=== PATIENT | male | born 1950 | race Caucasian/White ===

== ENCOUNTER 2016-11-16 19:38 | Inpatient (IN) ==
[2016-11-16 20:30] LABS: BE 5.8 mmoll (-3.0-3.0); BLOOD TYPE ARTERIAL; DRAW SITE L RADIAL; METHB 1.1 % (0.0-1.5); O2(CT) 19.2 mL/dL (15.0-23.0); PCO2(98.6) 47 mmHg (35-45); PO2(98.6) 114 mmHg (60-100); SAMPLE BLOOD; THB 14.2 g/dL (11.5-17.4); pH(98.6) 7.43 (7.35-7.45)
[2016-11-16 20:32] LABS: ALLEN TEST YES; MODALITY CANNULA
--- NOTE | 2016-11-16 21:11 | EKG Report ---
Test Performed on : 11/16/2016 8:07:42 PM Test Reason : sob Blood Pressure : / mmHG Vent. Rate : 135 BPM Atrial Rate : 090 BPM P-R Int : 000 ms QRS Dur : 096 ms QT Int : 334 ms P-R-T Axes : 000 061 059 degrees QTc Int : 501 ms Undetermined rhythm Low voltage QRS Cannot rule out Anterior infarct , age undetermined Abnormal ECG No previous ECGs available Unconfirmed Result
[2016-11-16 21:29] LABS: MANUAL DIFF NEEDED? NO
[2016-11-16 21:31] LABS: BASO% 0.9 % (0.0-0.8); EOS# 0.08 X1000 (0.0-0.7); EOS% 1.4 % (0.0-10.0); HEMOGLOBIN 14.1 g/dL (14.0-18.0); IMM GRAN# 0.01 X1000 (0.0-0.04); IMM GRAN% 0.2 % (0.0-0.5); LYMPH# 1.54 X1000 (1.2-3.4); LYMPH% 27.4 % (20.5-51.1); MCH 36.9 PG (27-31); MCHC 35.3 g/dL (33-37); MCV 104.7 FL (81-99); MONO# 0.86 X1000 (0.11-0.59); MONO% 15.3 % (1.7-9.3); MPV 10.8 FL (7.4-10.4); NEUT% 54.8 % (42.2-75.2); PLT 102 X1000 (130-400); RBC 3.82 XMIL (4.7-6.1)
[2016-11-16 21:43] LABS: AGAP 13; ALBUMIN 3.8 g/dL (3.5-5.0); ALKALINE PHOSPHATASE 53 U/L (32-122); BUN 13 mg/dL (8-22); CALCIUM 8.5 mg/dL (8.8-10.2); CHLORIDE 93 mmol/L (98-107); CK PROFILE 184 U/L (24-204); COSMO 269; GOT 51 U/L (10-34); GPT 37 U/L (10-44); MAGNESIUM 1.3 mg/dL (1.5-2.7); POTASSIUM 2.8 mmol/L (3.5-5.1); SODIUM 134 mmol/L (136-145); TCO2 28 mmol/L (25-35); TOTAL PROTEIN 6.7 g/dL (6.3-8.3)
[2016-11-16 21:46] LABS: PTT PL 32.8 Seconds (22.6-43.9)
--- NOTE | 2016-11-16 22:11 | Diag Imaging Result Doc PS360 ---
CHEST-2 VIEWS - 11/16/2016 INDICATION: CP TECHNIQUE: COMPARISON: 04/02/2013 FINDINGS: There is moderate infiltrate throughout the left lower lobe and a small left pleural effusion. There is also trace right pleural effusion and slight infiltrate in the right base. Heart size remains borderline. IMPRESSION: Bibasilar infiltrates and pleural effusions consistent with bronchopneumonia. Electronically signed by Franco Bautista 11/16/2016 10:09 PM
[2016-11-16] MEDS ORDERED: CARDIZEM IV ONE (22:58)
[2016-11-16] MEDS ORDERED: VASOTEC IV ONE (22:58)
[2016-11-16] MEDS ORDERED: ASPIRIN PO ONE (22:59)
[2016-11-16] MEDS ORDERED: LASIX IV ONE (22:59)
[2016-11-16] MEDS ORDERED: NS + KCL 40 MEQ 1,000 ML IV SCH (23:02)
[2016-11-16] MEDS ORDERED: KLOR-CON PO ONE (23:06)
[2016-11-16] MEDS ORDERED: ZOFRAN IV PRN (23:14)
[2016-11-16] MEDS ORDERED: CARDIZEM 100 MG/NS 100 MG/100 ML IVPB IV SCH (23:14)
[2016-11-16] MEDS ORDERED: TYLENOL PO PRN (23:14)
--- NOTE | 2016-11-16 23:20 | PROVIDER DOCUMENTATION ---
This chart was entered by Martine Billingsley Scribe, acting as scribe for Pedro Castillo MD. HPI-Respiratory General - General Chief Complaint: Shortness of Breath Stated Complaint: SOB Time Seen by Provider: 11/16/16 22:52 Source: patient Allergies/Adverse Reactions: Patient Allergies Allergy/AdvReac Type Severity Reaction Status Date / Time codeine AdvReac VOMITING Verified 07/24/15 20:15 Home Medications: Home Medication List Medication Instructions Recorded Confirmed Last Taken Type NK [No Home Medications] 11/16/16 11/16/16 Unknown History - History of Present Illness-Resp Nature of Presenting Problem: 66 year old M presents to the ED with a cc of shortness of breath. PT states that this has been going on x1 month. Pt states that it is usually in the mornings and when he gets up and moves around the shortness of breath improves. PT states that tonight while at supper he had a coughing spell and states that he could not catch his breath. Quality of Pain: reports: none Severity in ED: reports: mild Onset/Duration: reports: this evening Timing: reports: improving Exposure: reports: unknown cause Review of Systems - Adult - REVIEW OF SYSTEMS - ADULT Constitutional: reports: fatique, weight gain Eyes: reports: no symptoms reported Ears, Nose, Mouth & Throat: reports: no symptoms reported Cardiovascular: reports: edema, palpitations Respiratory: reports: cough, dyspnea on exertion, shortness of breath Gastrointestinal: reports: no symptoms reported Genitourinary: reports: no symptoms reported Musculoskeletal: reports: no symptoms reported Integumentary: reports: no symptoms reported Neurological: reports: no symptoms reported Psychiatric: reports: no symptoms reported Endocrine: reports: no symptoms reported Hematologic/Lymphatic: reports: no symptoms reported Allergic/Immunologic: reports: no symptoms reported All Other Systems: Reviewed and Negative Past History - Adult - PAST MEDICAL HISTORY-ADULT Review of Records: reports: Nursing Assessment Review, Medications Reviewed Major Childhood Illnesses: reports: denies history Cardiovascular: reports: HTN Respiratory: reports: COPD Gastrointestinal: reports: denies history Genitourinary: reports: denies history Musculoskeletal: reports: denies history Neurological: reports: denies history Psychiatric: reports: denies history Endocrine/Immune: reports: denies history Other Conditions: reports: denies history - PRIOR SURGERIES/PROCEDURES Surgical/Procedure History: reports: hernia repair - PRIOR HOSPITALIZATIONS Prior Hospitalizations: reports: none - IMMUNIZATION STATUS Childhood Immunizations: See Nurse Assessment Flu Vaccine: See Nurse Assessment - FAMILY HISTORY Family History: reviewed, not pertinent - SOCIAL HISTORY Smoking: cigarettes Provider spent 3-5 mins advising pt. on dangers of tobacco.: Discussed manners to quit use, and f/u contacts for add'l counseling. Substance Use: none/never Alcohol Use Frequency: every day Living Situation: family Physical Exam-General - PHYSICAL EXAM-ADULT Initial Vital Signs Reviewed: Yes - CONSTITUTIONAL General Appearance: appears well, alert, no apparent distress - RESPIRATORY Respiratory: rales (bilateral but greater in the right) - CARDIOVASCULAR Cardiovascular: irregularly irregular - GASTROINTESTINAL (ABDOMEN) Abdominal Exam: normal bowel sounds, non tender, soft - MUSCULOSKELETAL Extremity: pedal edema (2-3+ bilateral lower extremity pitting edema) - SKIN Integumentary: normal color, normal turgor, warm/dry - PSYCHIATRIC Psych/Mental Status: normal mood/affect, normal thought content, normal thought process, oriented x 3 Progress - PLAN OF CARE/RESULTS Progress/Plan/Lab Results: Vital Signs - 8 hr 11/16/16 19:44 11/16/16 21:20 Temperature 98.5 F Pulse Rate 133 H 123 H Respiratory Rate 20 20 Blood Pressure 129/70 151/120 O2 Sat by Pulse Oximetry 93 L 98 Laboratory Results - last 24 hr 11/16/16 11/16/16 11/16/16 20:05 20:05 20:05 WBC RBC Hgb Hct MCV MCH MCHC RDW Std Deviation Plt Count MPV Immature Gran % (Auto) Neut % (Auto) Lymph % (Auto) [place] % (Auto) Eos % (Auto) Baso % (Auto) Immature Gran # (Auto) Neut # (Auto) Lymph # (Auto) [place] # (Auto) Eos # (Auto) Baso # (Auto) PT INR APTT (Factor Assay) D-Dimer Specimen Type Sample Site pH pCO2 pO2 HCO3 Base Excess Oxyhemoglobin ABG O2 Sat (Calculated) ABG O2 Saturation ABG Carboxyhemoglobin ABG Methemoglobin Eriberto Test A-a O2 Difference Total Hemoglobin Lactate Blood Gas Modality FiO2 % Sodium 134 L Potassium 2.8 L Chloride 93 L Carbon Dioxide 28 Anion Gap 13 BUN 13 Creatinine 0.6 L Estimated GFR/1.73 m2 > 60 BUN/Creatinine Ratio 22 Glucose 115 H Calculated Osmolality 269 Calcium 8.5 L Magnesium 1.3 L Total Bilirubin 0.80 AST 51 H ALT 37 Alkaline Phosphatase 53 Creatine Kinase 184 Troponin T < 0.010 Syj-N-Fqdkelbnoyu Pept 1708 H Total Protein 6.7 Albumin 3.8 Globulin 3.0 Albumin/Globulin Ratio 1.0 Plasma/Serum Ethyl Alc 11/16/16 11/16/16 11/16/16 20:05 20:05 20:05 WBC 5.63 RBC 3.82 L Hgb 14.1 Hct 40.0 L MCV 104.7 H MCH 36.9 H MCHC 35.3 RDW Std Deviation 12.7 Plt Count 102 L MPV 10.8 H Immature Gran % (Auto) 0.2 Neut % (Auto) 54.8 Lymph % (Auto) 27.4 [place] % (Auto) 15.3 H Eos % (Auto) 1.4 Baso % (Auto) 0.9 H Immature Gran # (Auto) 0.01 Neut # (Auto) 3.09 Lymph # (Auto) 1.54 [place] # (Auto) 0.86 H Eos # (Auto) 0.08 Baso # (Auto) 0.05 PT 14.0 INR 1.00 APTT (Factor Assay) 32.8 D-Dimer 2.32 H Specimen Type Sample Site pH pCO2 pO2 HCO3 Base Excess Oxyhemoglobin ABG O2 Sat (Calculated) ABG O2 Saturation ABG Carboxyhemoglobin ABG Methemoglobin Eriberto Test A-a O2 Difference Total Hemoglobin Lactate Blood Gas Modality FiO2 % Sodium Potassium Chloride Carbon Dioxide Anion Gap BUN Creatinine Estimated GFR/1.73 m2 BUN/Creatinine Ratio Glucose Calculated Osmolality Calcium Magnesium Total Bilirubin AST ALT Alkaline Phosphatase Creatine Kinase Troponin T Cdq-G-Klwqxkgurzl Pept Total Protein Albumin Globulin Albumin/Globulin Ratio Plasma/Serum Ethyl Alc 137 H 11/16/16 20:15 WBC RBC Hgb Hct MCV MCH MCHC RDW Std Deviation Plt Count MPV Immature Gran % (Auto) Neut % (Auto) Lymph % (Auto) [place] % (Auto) Eos % (Auto) Baso % (Auto) Immature Gran # (Auto) Neut # (Auto) Lymph # (Auto) [place] # (Auto) Eos # (Auto) Baso # (Auto) PT INR APTT (Factor Assay) D-Dimer Specimen Type ARTERIAL Sample Site L RADIAL pH 7.43 pCO2 47 H pO2 114 H HCO3 29.4 H Base Excess 5.8 H Oxyhemoglobin 95.5 ABG O2 Sat (Calculated) 19.2 ABG O2 Saturation 99.0 ABG Carboxyhemoglobin 2.40 ABG Methemoglobin 1.1 Eriberto Test YES A-a O2 Difference 84.0 Total Hemoglobin 14.2 Lactate 1.30 Blood Gas Modality CAN[place]ULA FiO2 % 36.0 Sodium Potassium Chloride Carbon Dioxide Anion Gap BUN Creatinine Estimated GFR/1.73 m2 BUN/Creatinine Ratio Glucose Calculated Osmolality Calcium Magnesium Total Bilirubin AST ALT Alkaline Phosphatase Creatine Kinase Troponin T Wbm-D-Ykvjdemighs Pept Total Protein Albumin Globulin Albumin/Globulin Ratio Plasma/Serum Ethyl Alc Orders Category Date Time Status Admit - [facility] Routine AdmDCTranf 11/16/16 23:08 Ordered Activity - Bed Rest with BRP ORDERED Care 11/16/16 23:14 Active Cardiac Monitoring DIRECTED Care 11/16/16 21:19 Active Neurological Check PRN Care 11/16/16 23:14 Active Oxygen Therapy- ED Nursing DIRECTED Care 11/16/16 21:19 Active Saline Loc NOW Care 11/16/16 21:19 Active Vital Signs Order ROUTINE Care 11/16/16 23:14 Active Z-Document. for Tele Applied ORDERED Care 11/16/16 23:09 Active Heart Healthy Diet Diet 11/16/16 23:15 Active CHEST-2 VIEWS [RAD] Stat Exams 11/16/16 21:19 Completed ABG [RESP] Routine Lab 11/16/16 20:15 Completed ALCOHOL BLOOD Stat Lab 11/16/16 20:05 Completed CBC WITH ELECTRONIC DIFF [HEME] Stat Lab 11/16/16 20:05 Completed CK PROFILE [SP CHEM] Stat Lab 11/16/16 20:05 Completed COMPREHENSIVE METABOLIC PANEL [CHEM] Stat Lab 11/16/16 20:[address] D-DIMER [address] [COAG] Stat Lab 11/16/16 20:05 Completed MAGNESIUM [CHEM] Stat Lab 11/16/16 20:05 Completed PRO B-NATRIURETIC PEPTIDE Stat Lab 11/16/16 20:05 Completed PROTIME WITH INR PL [COAG] Stat Lab 11/16/16 20:[address] [COAG] Stat Lab 11/16/16 20:05 Completed TROPONIN T Stat Lab 11/16/16 20:05 Completed Acetaminophen [Tylenol] Med 11/16/16 23:14 Active 650 mg PO Q6H PRN PRN Aspirin Med 11/16/16 22:59 Discontinued 325 mg PO NOW ONE Diltiazem 100 mg/Ns [Cardizem 100 mg/Ns] Med 11/16/16 23:07 Active 100 mg in 100 ml IV 10 mg/hr Diltiazem 100 mg/Ns [Cardizem 100 mg/Ns] Med 11/16/16 23:14 Active 100 mg in 100 ml IV 10 mg/hr Diltiazem [Cardizem] Med 11/16/16 22:58 Discontinued 10 mg IV NOW ONE Enalaprilat [Vasotec] Med 11/16/16 22:58 Discontinued 1.25 mg IV NOW ONE Furosemide [Lasix] Med 11/16/16 22:59 Discontinued 40 mg IV NOW ONE Ns + KCl 40 Meq 1,000 ml Med 11/16/16 23:02 Stop Req IV 50 mls/hr Ondansetron [Zofran] Med 11/16/16 23:14 Active 4 mg IV Q4H PRN PRN Potassium Chloride E.r. [Klor-Con] Med 11/16/16 23:06 Discontinued 40 meq PO NOW ONE Oxygen Device Routine Oth 11/16/16 23:16 Active Telemetry [OM.EQ] Routine Oth 11/16/16 23:08 Active EKG [EKG] Stat Ther 11/16/16 19:50 Draft Transfer/Admit Order [TRANSFER] Routine Transfer 11/16/16 23:17 Ordered Result Diagrams: 11/16/16 20:05 11/16/16 20:05 - EKG 1 Time of EKG reading by physician:: 20:07 EKG Read and Signed by:: Pedro Castillo EKG Interpretation (*Must complete 3 of following elements*): Abnormal Rate: 135 Rhythm: A-fib with RVR QRS: other (low voltage QRS) - XRAY 1 XRAY Study: Chest Impression: Abnormal XRAY Interpretation: congestive heart failure: Dr. Castillo(ER MD) - CONSULTS/PCP/HOSPITALIST Notification #1 *Consult/PCP/Hospitalist*: Dr. Calvert(hospitalist) Time Discussed: 23:03 Reason/Comments: consult for admission Consult Disposition: Admit Departure - Departure Date of Disposition Decision: 11/16/16 Time of Disposition Decision: 23:18 DIAGNOSIS: Atrial dysrhythmia CHF (congestive heart failure), NYHA class I Qualifiers: Congestive heart failure type: systolic Congestive heart failure chronicity: acute Qualified Code(s): I50.21 - Acute systolic (congestive) heart failure Disposition: ADMITTED INPATIENT 09 Certified Medical Emergency: Emergent Condition: Fair Referrals and Follow-Ups: None,PCP [Primary Care Provider] - - Critical Care Note This patient required my direct & personal management of CC.: No Attestation - Physician/ STEPHEN Attestation The physician spent face to face time with patient:: Yes Advanced Practice Provider documentation review:: Supervising physician onsite and consulted in the evaluation and care of this patient. The physician did have a face to face encounter with the patient. This chart was documented by the indicated scribe, (Martine Billingsley Scribe) and accurately reflects the services I performed and decisions made by me, Pedro Castillo MD, as attested by the provider's signature.
[2016-11-17] MEDS: CARDIZEM 100 MG/NS 100 MG/100 ML IVPB IV SCH ×5 (00:20→20:31)
[2016-11-17 03:15] LABS: URINE CULTURE PL NEEDED? NO; URINE SOURCE CATH
[2016-11-17 03:27] LABS: BILIRUBIN URINE NEGATIVE (NEGATIVE); BLOOD URINE 4+ (NEGATIVE); CLARITY SL. CLOUDY (CLEAR); COLOR YELLOW; GLUCOSE URINE NEGATIVE (NEGATIVE); LEUKOCYTES URINE NEGATIVE (NEGATIVE); NITRITE URINE NEGATIVE (NEGATIVE); PH URINE 6.5; PROTEIN URINE NEGATIVE (NEGATIVE); SP GRAVITY URINE 1.005; URINE RBC 20-40 /HPF (<10); UROBILINOGEN URINE NORMAL
[2016-11-17 07:57] LABS: HEMATOCRIT 40.1 % (42.0-52.0); MCH 36.7 PG (27-31); MCHC 34.9 g/dL (33-37); MCV 105.2 FL (81-99); MPV 10.8 FL (7.4-10.4); RBC 3.81 XMIL (4.7-6.1)
[2016-11-17 08:33] LABS: AGAP 14; ALBUMIN 3.5 g/dL (3.5-5.0); ALKALINE PHOSPHATASE 49 U/L (32-122); BUN 10 mg/dL (8-22); CALCIUM 8.6 mg/dL (8.8-10.2); CHLORIDE 94 mmol/L (98-107); COSMO 276; GOT 52 U/L (10-34); GPT 36 U/L (10-44); MAGNESIUM 1.2 mg/dL (1.5-2.7); POTASSIUM 3.1 mmol/L (3.5-5.1); SODIUM 139 mmol/L (136-145); TCO2 32 mmol/L (25-35); TOTAL PROTEIN 6.7 g/dL (6.3-8.3)
[2016-11-17] MEDS ORDERED: KLOR-CON PO ONE (09:24)
[2016-11-17] MEDS ORDERED: MAGNESIUM SULFATE 2 GM/S.W.I. 2 GM/50 ML IVPB IV ONE (10:00)
[2016-11-17] MEDS: LASIX IV SCH (10:00)
[2016-11-17] MEDS: LIBRIUM PO SCH ×2 (10:01→19:11)
[2016-11-17] MEDS ORDERED: LANOXIN PO ONE (10:46)
[2016-11-17] MEDS ORDERED: LOVENOX SUBQ ONE (14:59)
[2016-11-17] MEDS: ATIVAN IV PRN ×2 (15:10→21:30)
--- NOTE | 2016-11-17 15:10 | ECHO REPORT ---
ORDER DATE: 11/17/2016 ECHOCARDIOGRAPHIC MEASUREMENTS: 1. Interventricular septum 1.2. 2. Left ventricular posterior wall 1.2. 3. Diastolic diameter 4.2. 4. Left atrium 3.7. 5. Aorta 2.8. SUMMARY OF 2-DIMENSIONAL IMAGIN. Normal left ventricular cavity size. Estimated ejection fraction of 55%. Tachycardia, atrial fibrillation was noted. Heart rate of 130-120. This could overestimate the left ventricular ejection fraction. 2. Aortic valve leaflets are sclerosed. 3. By Doppler studies, there is no aortic stenosis or regurgitation. Mitral valve was normal. There is mild mitral regurgitation. Tricuspid valve was normal. There is mild tricuspid regurgitation. Peak velocity across the tricuspid valve was 3 m/sec. Pulmonary artery systolic pressure 46 mmHg. 4. There is no pericardial effusion or obvious intracardiac mass or thrombus seen. 5. Technically suboptimal study. Poor acoustic window. 6. Anterior echo-free space suggestive of pericardial fat pad noted. cc: MD Nessa Xie CRNP
--- NOTE | 2016-11-17 15:21 | HISTORY AND PHYSICAL ---
CHIEF COMPLAINT: Shortness of breath x1 month. HISTORY OF PRESENT ILLNESS: This is a 66-year-old male with a history of chronic obstructive pulmonary disease and hypertension, who presented to the emergency room complaining of shortness of breath. He states it has been present for about a month. He usually he wakes up in the mornings short of breath. When he walks it does improve somewhat. Tonight, he stated prior to coming to the emergency room he had a coughing spell and could not catch his breath; therefore, he presented to the emergency room. On arrival, he had a O2 saturation of 93 on room air and was found to be in atrial fibrillation, rapid ventricular rate, with a rate of 135 for which he was given digoxin as well as basic taking Cardizem IV. He was admitted to ICU for further evaluation and treatment. PAST MEDICAL HISTORY: 1. Chronic obstructive pulmonary disease. 2. Hypertension. PAST SURGICAL HISTORY: Hernia repair. SOCIAL HISTORY: He smokes a pack a day. He drinks alcohol daily. ALLERGIES: Codeine, which causes vomiting. HOME MEDICATIONS: None. REVIEW OF SYSTEMS: A 14 point review of systems is discussed with patient with pertinent positives as stated in HPI. He denied chest pain, palpitations, syncope, dizziness, any orthopnea, nausea, vomiting, diarrhea, constipation, black or bloody vomitus, black or bloody stools, hematuria, dysuria, frequency, and urgency. PHYSICAL EXAMINATION: GENERAL: This is a 66-year-old male who is sitting up in the bed, in no distress. VITAL SIGNS: Blood pressure is 127/96, with a heart rate of 128, respirations are temperature is 97.5 degrees, with oxygen saturations of 97 to 100%. HEENT: Head is normocephalic, atraumatic. Pupils equal, round, react to light. EOMs are intact. Sclerae anicteric. Mucous membranes are moist. NECK: Supple. Trachea midline. CARDIOVASCULAR: Irregularly irregular rate and rhythm. S1 and S2 appreciated. PULMONARY: Breath sounds with some crackles bilateral, with right greater than left. No increased work of breathing noted. GASTROINTESTINAL: Abdomen is soft, nontender, nondistended. Bowel sounds in all 4 quadrants. EXTREMITIES: No clubbing, cyanosis. He does have 2+ lower extremity pitting edema. Calves are nontender. Pulses are palpable x4. SKIN: Warm and dry. NEUROLOGIC: He is alert and oriented with cranial nerves 2-12 grossly intact. LABS: WBC is 5.6, with a hemoglobin of 14.1, hematocrit 40, and platelets of 102,000. D-dimer is 2.32. Sodium is 134, potassium 2.8. BUN 13, creatinine 0.6, with a glucose of 115. Troponin's are negative on multiple occasions. EKG reveals atrial fibrillation at a rate of 135 and chest x- ray revealed bibasilar infiltrates consistent with bronchopneumonia. He will be admitted to the ICU. He will continue telemetry, as well as a Cardizem drip. Once her rate is controlled we will transition back over to oral medications. We will give supplemental oxygen. We will obtain blood cultures and antibiotic coverage with Rocephin. We will supplement his potassium and trend, repleting as appropriate. We will replete his magnesium as well. We will obtain a CTA pulmonary. In the meantime, give Lovenox 1 mg/kg. Further treatments pending hospital course. Dictated by RUIZ Gunderson for Kirby Calvert MD cc: RUIZ Gunderson MD
[2016-11-17] MEDS ORDERED: MAGNESIUM SULFATE 4 GM/S.W.I. 4 GM/100 ML IVPB IV ONE (19:44)
--- NOTE | 2016-11-17 20:00 | PROGRESS NOTE ---
DATE: 11/17/2016 SUBJECTIVE: Patient is feeling better. His heart rate is not racing quite as much as it was. Denies any current chest pain, palpitations. Denies any fevers or chills. Denies GI or issues. OBJECTIVE: Vital Signs: Reviewed. Blood pressure is stable. He is afebrile. Pulse is 110-140. Respiratory 22. General: Patient is awake, alert. He is pleasant to talk with. Neck: Supple. CARDIOVASCULAR: Irregular rate, irregular rhythm. Chest clear. Abdomen: Soft. Extremities: Moves all extremities. Neurologic: No focal changes. LABORATORY: Reviewed. CBC, CMP, CPK essentially normal. ASSESSMENT: Atrial fibrillation with RVR in a patient with no previous history of atrial fibrillation. We will continue to follow. We will add digoxin to see if this will help with rate control. Further orders as needed. cc: Kirby Calvert MD
[2016-11-17] MEDS: KLOR-CON PO SCH (20:14)
[2016-11-17] MEDS: LANOXIN PO SCH (20:15)
[2016-11-17 20:38] LABS: AMYLASE 66 U/L (20-200); LIPASE 19 U/L (13-60)
[2016-11-18] MEDS: LIBRIUM PO SCH ×3 (01:05→18:26)
[2016-11-18] MEDS: CARDIZEM PO SCH ×4 (01:05→18:26)
[2016-11-18] MEDS: ATIVAN IV PRN ×3 (02:41→20:17)
[2016-11-18] MEDS: CARDIZEM 100 MG/NS 100 MG/100 ML IVPB IV SCH ×2 (05:26→16:16)
[2016-11-18 06:01] LABS: HEMATOCRIT 40.1 % (42.0-52.0); HEMOGLOBIN 13.2 g/dL (14.0-18.0); MCH 36.4 PG (27-31); MCHC 32.9 g/dL (33-37); MCV 110.5 FL (81-99); MPV 11.1 FL (7.4-10.4); RBC 3.63 XMIL (4.7-6.1)
--- NOTE | 2016-11-18 06:02 | EKG Report ---
Test Performed on : 11/18/2016 05:51:13 AM Test Reason : atrial fibrillation Blood Pressure : / mmHG Vent. Rate : 115 BPM Atrial Rate : 105 BPM P-R Int : 000 ms QRS Dur : 118 ms QT Int : 360 ms P-R-T Axes : 000 054 084 degrees QTc Int : 498 ms Atrial fibrillation. with rapid ventricular response. Incomplete left bundle branch block Nonspecific T wave abnormality Abnormal ECG When compared with ECG of 16-NOV-2016 20:07, Previous ECG has undetermined rhythm, needs review QRS duration has increased Nonspecific T wave abnormality now evident in Lateral leads Confirmed by Cale Turner MD ([id number]) on 12/01/2016 6:51:11 PM
[2016-11-18 06:18] LABS: AGAP 10; ALBUMIN 3.4 g/dL (3.5-5.0); ALKALINE PHOSPHATASE 43 U/L (32-122); BUN 18 mg/dL (8-22); CALCIUM 8.5 mg/dL (8.8-10.2); CHLORIDE 98 mmol/L (98-107); COSMO 282; GOT 34 U/L (10-34); GPT 28 U/L (10-44); POTASSIUM 3.7 mmol/L (3.5-5.1); SODIUM 140 mmol/L (136-145); TCO2 33 mmol/L (25-35); TOTAL PROTEIN 6.4 g/dL (6.3-8.3)
--- NOTE | 2016-11-18 08:22 | CONSULTATION ---
DATE OF CONSULTATION: 11/17/2016 CHIEF COMPLAINT: Shortness of breath, irregular heartbeat. HISTORY: Mr. Castellanos is a 56-year-old male who presented to the hospital at about 7 p.m. last night with complaints of increasing dyspnea and cough that had been going on for several weeks. However, it just really got bad the day prior to admission. He became orthopneic, and upon presentation they noted that he was very tachycardic. EKG done at the time of presentation shows atrial fibrillation with a rapid response. His EKG, interestingly, shows electrical alternans which could indicate either pericardial effusion or very severe COPD. At any rate, the patient has been started on IV Cardizem and admitted to ICU at [facility] for further management of his condition. Initial blood work showed a low potassium level of 2.8 and a low magnesium level of 1.3 with a proBNP of 1708. He has already received an echocardiogram that was reported by Dr. Espana today indicating an ejection fraction of 55%, tachycardia, atrial fibrillation, mitral regurgitation of mild degree. Pulmonary pressure 47 mmHg. A chest x-ray done in the emergency room department reveals bibasilar infiltrate and pleural effusions consistent with bronchopneumonia. The patient denies having chest pain at this time. PAST MEDICAL HISTORY: His past history is positive for hypertension in the past that has been diagnosed at some point. However, he has not followed through with medical treatment. He does have COPD. SURGICAL HISTORY: He has had bilateral inguinal hernia repair years ago. SOCIAL HISTORY: His is originally from [place]. He worked in the [employer] for many years, mostly [employer] or the [place] area in 2000. He has worked at one of the local [employer] companies in the [facility] up until 2015 when he had to go on disability or he had to leave for medical reasons. He is single, has no children. He has 2 sisters who live within a block from his house. He smokes currently half a pack a day. He used to smoke 1-1/2 packs a day for many years. He also drinks several drinks of rum, and he says that in a given week he may go through 3 bottles of a fifth of rum. FAMILY HISTORY: Negative for coronary heart disease. REVIEW OF SYSTEMS: He had occasional sporadic epigastric and chest pain for a short-lasting period. He has never been admitted to the hospital for any cardiac issue. He developed severe back pain lately, and in 2014 he had to leave his work because of back pain. He also has some intermittent claudication. He has been admitted once to the hospital for pneumonia many years ago. No other major history. ALLERGIES: Codeine. PHYSICAL EXAMINATION: Vital signs right now: Blood pressure is 111/66, pulse 92, respirations 15, temperature 98.4. General: Awake, alert, oriented, somewhat dyspneic. HEENT: Unremarkable. Chest: Diminished breath sounds bilaterally diffusely with occasional rhonchi. Cardiac: Heart sounds are irregularly irregular. No gallop or murmur is noted. Abdomen: Obese, nontender, no masses, no hepatomegaly. Extremities: Decreased pulses bilaterally. He follows commands, moves four extremities. Cranial nerves are normal. Skin: Shows areas of rash, possible yeast infection. ADDITIONAL BLOOD WORK: BUN and creatinine are normal. His liver function tests: AST 51 and 52, alkaline phosphatase is normal. Troponin was 0.010 and 0.027. IMPRESSION: 1. Patient presenting to the hospital with increasing dyspnea, abnormal chest x-ray, possible CHF versus pneumonia, pneumonitis. 2. Paroxysmal atrial fibrillation. 3. Long-term tobacco abuse. 4. Clinical and radiographic findings consistent with COPD. 5. Long-term alcohol abuse. His alcohol level at the time of presentation was 137 mg/dL. This may put him at risk of DTs. RECOMMENDATION: At this point in time, we will replace magnesium. We will put on oral Cardizem, continue digoxin IV or p.o. The patient is instructed to quit smoking and quit drinking. He needs to establish himself with a physician. He tells me at this point in time he has no financial means of affording health care. He is awaiting his Social Security to kick in. He should probably be referred to the [facility]. At any rate, we will be happy to assist in further management. cc: Chris Alvarez MD
[2016-11-18] MEDS: LASIX IV SCH (08:49)
[2016-11-18] MEDS: LANOXIN PO SCH (08:49)
[2016-11-18] MEDS: KLOR-CON PO SCH ×2 (08:51→20:15)
--- NOTE | 2016-11-18 12:45 | PROGRESS NOTE ---
DATE: 11/18/2016 SUBJECTIVE: He reports his breathing has improved as well as his issues with heart racing. PHYSICAL EXAMINATION: He is afebrile. His heart rate during my examination was anywhere from the 90s to the low 100s. Blood pressure 128/91. General: No acute distress. Cardiovascular: He is in an irregularly irregular rhythm consistent with atrial fibrillation. He has trace to 1+ bilateral lower extremity edema. Chest exam has coarse expiratory wheezes bilaterally. Abdomen is soft and nontender. PERTINENT DATA: White count 6.29, hematocrit 40.1, platelet count is 89,000. His sodium is 140, potassium is 3.7. BUN 18, creatinine 0.6. His HDL is 94. His LDL is 52. ASSESSMENT: 1. Rapid atrial fibrillation. 2. Alcohol abuse. 3. Tobacco abuse. PLAN: I will increase his Cardizem up to 60 q.6. We will continue him on the digoxin and try to wean the diltiazem infusion to off. cc: Bear Lynn MD
[2016-11-18] MEDS ORDERED: DUONEB (A & A) INH PRN (17:08)
[2016-11-18] MEDS ORDERED: NICODERM PATCH TD SCH (17:15)
[2016-11-18] MEDS ORDERED: DUONEB (A & A) INH ONE (17:19)
--- NOTE | 2016-11-18 20:29 | PROGRESS NOTE ---
DATE: 11/18/2016 SUBJECTIVE: Patient states that he had episodes of anxiety last night that was easily relieved with Ativan. States he is feeling much better. Much more calm this morning. Denies any current pain anywhere, but still having some palpitations. Denies any GI or issues. Denies any skin rashes. OBJECTIVE: Vital Signs: Reviewed. Patient is awake, alert. His heart rate is still in the 110 to 130s, blood pressure stable, respiratory stable. HEENT: Normocephalic, atraumatic. PEDRITO. Neck: Supple. Cardiovascular: Irregular rate, irregular rhythm. Chest: Clear. Nonlabored. Abdomen: Soft. Extremities: Moves all extremities. No edema. Neurologic: No changes. LABORATORY: Reviewed and stable. ASSESSMENT: 1. Atrial fibrillation with rapid ventricular response. We will increase Cardizem to 66. Continue digoxin. Appreciate Cardiology involvement. 2. Acute anxiety. 3. Hypertension. 4. Chronic obstructive pulmonary disease, stable. PLAN: We will continue patient on his current medications. We will stop his drip. We will follow. Hopefully he can transition to the floor later this afternoon. cc: Kirby Calvert MD
[2016-11-19] MEDS: CARDIZEM 100 MG/NS 100 MG/100 ML IVPB IV SCH (00:10)
[2016-11-19] MEDS: ATIVAN IV PRN ×2 (00:10→03:31)
[2016-11-19] MEDS: CARDIZEM PO SCH ×2 (00:10→06:25)
[2016-11-19] MEDS: LIBRIUM PO SCH (01:18)
[2016-11-19] MEDS ORDERED: LIBRIUM PO SCH ×2 (06:45→20:00)
[2016-11-19 07:51] VITALS: BP 150/95
--- NOTE | 2016-11-19 08:20 | EKG Report ---
Test Performed on : 11/19/2016 07:39:46 AM Test Reason : atrial fibrillation Blood Pressure : / mmHG Vent. Rate : 116 BPM Atrial Rate : 131 BPM P-R Int : 000 ms QRS Dur : 082 ms QT Int : 332 ms P-R-T Axes : 000 078 230 degrees QTc Int : 461 ms Atrial fibrillation. with rapid ventricular response. Anterior infarct , age undetermined Abnormal ECG When compared with ECG of 18-NOV-2016 05:51, (Unconfirmed) Non-specific change in ST segment in Inferior leads Confirmed by Cale Turner MD ([id number]) on 12/01/2016 7:04:42 PM
[2016-11-19] MEDS: KLOR-CON PO SCH (08:41)
[2016-11-19] MEDS: LASIX IV SCH (08:44)
[2016-11-19] MEDS: LANOXIN PO SCH (08:44)
--- NOTE | 2016-11-19 20:27 | DISCHARGE SUMMARY ---
ADMISSION DATE: 11/16/2016 DISCHARGE DATE: 11/19/2016 DIAGNOSES: 1. Chronic obstructive pulmonary disease, acute exacerbation. 2. Atrial fibrillation RVR. 3. Acute anxiety. 4. Hypertension. 5. Alcohol abuse. 6. Tobacco abuse. CONSULTATIONS: Dr. Alvarez, Cardiology. DIAGNOSTICS: 11/16/2016 chest x-ray: Revealed bibasilar infiltrates and pleural effusions consistent with bronchopneumonia. Echocardiogram: Revealed: 1. Normal left ventricular cavity size. 2. Ejection fraction of 55%. 3. Aortic valve leaflets are sclerosed with no aortic stenosis or regurgitation. Mitral valve was normal. Mild mitral regurgitation. Tricuspid valve normal. Mild tricuspid regurgitation. 4. No pericardial effusion or obvious intracardiac mass or thrombus seen. HOSPITAL COURSE: Mr. Miguel Castellanos presented to the emergency room complaining of shortness of breath x1 month. He does have a history of COPD and hypertension and at 1st he thought it was his COPD. His symptoms would wax and wane. Prior to coming to the emergency room, he had a coughing spell and could not get his breath, therefore he presented. He was found to be in atrial failed for which he was given IV Cardizem and Vasotec. He was placed on a Cardizem drip and transitioned over to oral medications and is actually being discharged on his Cardizem CD 120 daily as well as Lanoxin 1.125 daily. Once rate was controlled he had no further shortness of breath. Scheduled Librium was given, he showed no signs of alcohol withdrawl or DTs. He had no further shortness of breath. He had no chest pain. DISCHARGE PHYSICAL EXAMINATION: Cardiovascular: Irregularly irregular rate and rhythm. S1, S2 appreciated. Pulmonary: Breath sounds were diminished throughout with no increased work of breathing noted. Gastrointestinal: Abdomen was soft, nontender, nondistended with bowel sounds in all 4 quadrants. Extremities: No clubbing, cyanosis, or edema. Calves are nontender and pulses palpable x4. DISCHARGE MEDICATIONS: 1. Cardizem CD 120 mg daily. 2. Lanoxin 125 mcg daily. 3. Librium 50 mg every 8 hours. OF NOTE Mr Castellanos was in the process of leaving AMA, refusing further treatment or testing. when Dr Calvert rounded. Dr Calvert discussed with the pt the perils of leaving, including but not limited to CVA and/or . Alcohol cessation was also discussed at this time. Mr Castellanos stated that he will not stay for further treatment and has no intentions of stopping alcohol use, in fact, he is going home to drink. He did accept prescriptions for Cardizem and Lanoxin. As he has had many falls - related to alcohol use - which he has no intentions of stopping, also being unsure of the presence of varices/ulcers , he has a high risk of bleeding therefore, no anticoagulation was started. FOLLOWUP: He has been instructed to [facility]. He will also be followed by [facility], which hopefully can assist in his care while he finds a physician position. He also has been given the physician referral number. DISPOSITION: He is being discharged home with his sister in a stable condition. TIME SPENT: This is a greater than 30 minutes discharge. Dictated by RUIZ Gunderson for Kirby Calvert MD cc: RUIZ Gunderson MD [facility]
--- NOTE | 2016-11-22 03:47 | PROGRESS NOTE ---
DATE: 11/19/2016 ADDENDUM: Patient is adamant that he is going home. In fact, he is sitting in the bed, dressed. He is cussing and yelling at the staff, stating that he is not staying. He currently is in no respiratory distress. His heart rate is controlled with Cardizem p.o. Spent 15 minutes attempting to convince Mr. Castellanos to remain in the hospital long enough to get a prescription for Cardizem CD. I tried to talk him into waiting until the afternoon to make sure that the Cardizem CD would be effective and heart rate controlled. The patient was adamant, with very explicit terms that he was not staying. Instead of forcing Mr. Castellanos to sign AMA without any prescription, which certainly would land him back if the hospital due to atrial fibrillation with rapid ventricular response, wrote a prescription for Cardizem CD, as well as Librium. Again, attempted to discuss with him the perils of alcohol and alcoholism, although he was very nonreceptive. cc: Kirby Calvert MD
== END 2016-11-19 09:35 | disposition home health service (06) ==
LOC: P.ED 19:38 → P.ICU 23:34 → P.MEDSURG 11-18 21:24 → P.SURHOLD 11-18 21:24
PROVIDERS: ATTEND Family Medicine

== ENCOUNTER 2016-11-20 21:13 | Inpatient (IN) ==
[2016-11-20] MEDS ORDERED: LASIX IV ONE (21:25)
--- NOTE | 2016-11-20 21:29 | PROVIDER DOCUMENTATION ---
This chart was entered by Claudette Barboza Scribe, acting as scribe for Socrates Russo MD. HPI-Respiratory General - General Chief Complaint: Shortness of Breath Stated Complaint: difficulty breathing Time Seen by Provider: 11/20/16 21:18 Source: patient, EMS Allergies/Adverse Reactions: Patient Allergies Allergy/AdvReac Type Severity Reaction Status Date / Time codeine AdvReac Intermediate VOMITING Verified 11/20/16 21:18 Home Medications: Home Medication List Medication Instructions Recorded Confirmed Last Taken Type Chlordiazepoxide [Librium] 50 mg PO Q8H #45 capsule 11/19/16 Unknown Rx Digoxin [Lanoxin] 125 microgm PO DAILY #30 tablet 11/19/16 Unknown Rx Diltiazem C.d. [Cardizem C.d] 120 mg PO DAILY #90 capsule 11/19/16 Unknown Rx - History of Present Illness-Resp Nature of Presenting Problem: Patient is a 66 year old male with history of atrial fibrillation and CHF who presents in the ED this evening via EMS for complaints of dyspnea. Patient states his sister called EMS this evening due to him being short of breath, and states he was admitted to the hospital earlier this week for atrial fibrillation. He also states he "drank half of a vodka and coke drink" prior to arrival in ED. staffing recruiter states patient's oxygen saturation was in the mid 80's on room air on arrival in ED, but improved to 100% with oxygen at 4lpm via nasal cannula. Patient denies chest pain and any other symptoms. Quality of Pain: reports: none. denies: aching, burning, cramping, dull, fullness, indigestion, pressure, sharp, stabbing, tearing, throbbing, tightness , other Severity in ED: reports: mild, moderate Onset/Duration: reports: abrupt, just prior to arrival Timing: reports: still present Context: reports: other (hx of CHF) Exposure: denies: unknown cause, allergen exposure, enviromental allergen exposure, common food allergen exposure, illness exposure, irritant gases exposure, new medication, mold exposure, smoke exposure, toxic exposure, other Cough Quality/Degree: reports: no cough Episode Frequency: chronic episodes (hx of CHF) Current Respiratory Medication Therapy: Initiated none, Initiated see nurses note Modifying Factors: improves with: nothing Associated Symptoms: reports: shortness of breath. denies: chest pain/soreness Similar Symptoms Previously?: Yes Recently seen or treated by another doctor?: Yes (hospitalized this week) Review of Systems - Adult - REVIEW OF SYSTEMS - ADULT Constitutional: reports: no symptoms reported Eyes: reports: no symptoms reported Ears, Nose, Mouth & Throat: reports: no symptoms reported Cardiovascular: reports: no symptoms reported. denies: chest pain Respiratory: reports: shortness of breath Gastrointestinal: reports: no symptoms reported Genitourinary: reports: no symptoms reported Musculoskeletal: reports: no symptoms reported Integumentary: reports: no symptoms reported Neurological: reports: no symptoms reported Psychiatric: reports: no symptoms reported Endocrine: reports: no symptoms reported Hematologic/Lymphatic: reports: no symptoms reported Allergic/Immunologic: reports: no symptoms reported All Other Systems: Reviewed and Negative Past History - Adult - PAST MEDICAL HISTORY-ADULT Review of Records: reports: Old Records Reviewed, Nursing Assessment Review, Medications Reviewed Major Childhood Illnesses: reports: denies history Cardiovascular: reports: A-Fib, CHF, HTN Respiratory: reports: COPD Gastrointestinal: reports: denies history Obstetrical/Gynecological: reports: denies history Genitourinary: reports: denies history Musculoskeletal: reports: denies history Neurological: reports: denies history Psychiatric: reports: denies history Endocrine/Immune: reports: denies history Other Conditions: reports: denies history - PRIOR SURGERIES/PROCEDURES Surgical/Procedure History: reports: hernia repair - PRIOR HOSPITALIZATIONS Prior Hospitalizations: reports: none - IMMUNIZATION STATUS Childhood Immunizations: See Nurse Assessment Flu Vaccine: See Nurse Assessment - FAMILY HISTORY Family History: reviewed, not pertinent - SOCIAL HISTORY Smoking: denies Substance Use: alcohol Alcohol Use Frequency: every day Number of drinks per typical drinking period:: 3-4 drinks Living Situation: family Physical Exam-General - PHYSICAL EXAM-ADULT Initial Vital Signs Reviewed: Yes - CONSTITUTIONAL General Appearance: alert, no apparent distress, other (appears intoxicated, smells of ETOH) - EYES Eyes: PERRL/EOMI, pink conjunctivae - HEAD, EARS, NOSE, MOUTH & THROAT HENMT: normocephalic/atraumatic, moist mucous membranes - NECK Neck: non-tender, full range of motion, supple, normal inspection - RESPIRATORY Respiratory: chest non-tender, lungs clear, normal breath sounds, no pleuratic chest pain, no respiratory distress, no accessory muscle use - CARDIOVASCULAR Cardiovascular: no edema, no gallop, no JVD, no murmur, tachycardia, irregularly irregular - GASTROINTESTINAL (ABDOMEN) Abdominal Exam: non tender, soft, no organomegaly, no pulsatile mass - LYMPHATIC Lymphatic: no adenopathy - MUSCULOSKELETAL Back Exam: normal inspection, no CVA tenderness, no vertebral tenderness Extremity: normal range of motion, non-tender, normal gait, normal inspection, no pedal edema, no calf tenderness, normal capillary refill, pelvis stable - SKIN Integumentary: normal color, normal turgor, warm/dry - NEUROLOGIC Neurologic: grossly normal, no motor/sensory deficits - PSYCHIATRIC Psych/Mental Status: normal mood/affect, oriented x 3 Progress - PLAN OF CARE/RESULTS Progress/Plan/Lab Results: Vital Signs - 8 hr 11/20/16 21:14 11/20/16 21:18 11/20/16 21:58 Temperature 97.9 F Pulse Rate 128 H 129 H 126 H Respiratory Rate 22 32 H 33 H Blood Pressure 155/102 125/92 O2 Sat by Pulse Oximetry 86 L 97 94 L 11/20/16 23:02 Temperature Pulse Rate 125 H Respiratory Rate 32 H Blood Pressure 109/85 O2 Sat by Pulse Oximetry 97 Laboratory Results - last 24 hr 11/20/16 11/20/16 11/20/16 21:10 21:30 21:30 WBC RBC Hgb Hct MCV MCH MCHC RDW Std Deviation Plt Count MPV Immature Gran % (Auto) Neut % (Auto) Lymph % (Auto) [place] % (Auto) Eos % (Auto) Baso % (Auto) Immature Gran # (Auto) Neut # (Auto) Lymph # (Auto) [place] # (Auto) Eos # (Auto) Baso # (Auto) PT INR APTT (Factor Assay) Specimen Type ARTERIAL Sample Site L RADIAL pH 7.40 pCO2 56 H* pO2 89 HCO3 30.9 H Base Excess 7.8 H Oxyhemoglobin 94.0 L ABG O2 Sat (Calculated) 19.6 ABG O2 Saturation 98.7 ABG Carboxyhemoglobin 3.60 H ABG Methemoglobin 1.2 Eriberto Test YES A-a O2 Difference 98.0 Total Hemoglobin 14.8 Lactate 0.90 Liter Flow 4.0 Blood Gas Modality CANNULA FiO2 % 36.0 Sodium 136 Potassium 3.9 Chloride 96 L Carbon Dioxide 30 Anion Gap 10 BUN 12 Creatinine 0.6 L Estimated GFR/1.73 m2 > 60 BUN/Creatinine Ratio 20 Glucose 119 H Calculated Osmolality 273 Calcium 9.1 Magnesium 1.5 Total Bilirubin 0.90 AST 25 ALT 20 Alkaline Phosphatase 45 Creatine Kinase 73 Troponin T 0.023 Svv-H-Ncaivasoczo Pept Total Protein 6.8 Albumin 3.4 L Globulin 3.0 Albumin/Globulin Ratio 1.0 Plasma/Serum Ethyl Alc 11/20/16 11/20/16 11/20/16 21:30 21:30 21:30 WBC 9.38 RBC 3.89 L Hgb 14.4 Hct 43.0 MCV 110.5 H MCH 37.0 H MCHC 33.5 RDW Std Deviation 12.6 Plt Count 134 MPV 10.2 Immature Gran % (Auto) 0.1 Neut % (Auto) 72.0 Lymph % (Auto) 12.2 L [place] % (Auto) 14.9 H Eos % (Auto) 0.6 Baso % (Auto) 0.2 Immature Gran # (Auto) 0.01 Neut # (Auto) 6.75 H Lymph # (Auto) 1.14 L [place] # (Auto) 1.40 H Eos # (Auto) 0.06 Baso # (Auto) 0.02 PT 13.8 INR 0.98 APTT (Factor Assay) 30.9 Specimen Type Sample Site pH pCO2 pO2 HCO3 Base Excess Oxyhemoglobin ABG O2 Sat (Calculated) ABG O2 Saturation ABG Carboxyhemoglobin ABG Methemoglobin Eriberto Test A-a O2 Difference Total Hemoglobin Lactate Liter Flow Blood Gas Modality FiO2 % Sodium Potassium Chloride Carbon Dioxide Anion Gap BUN Creatinine Estimated GFR/1.73 m2 BUN/Creatinine Ratio Glucose Calculated Osmolality Calcium Magnesium Total Bilirubin AST ALT Alkaline Phosphatase Creatine Kinase Troponin T Exu-P-Ueejadwzrea Pept 3102 H Total Protein Albumin Globulin Albumin/Globulin Ratio Plasma/Serum Ethyl Alc 11/20/16 21:30 WBC RBC Hgb Hct MCV MCH MCHC RDW Std Deviation Plt Count MPV Immature Gran % (Auto) Neut % (Auto) Lymph % (Auto) [place] % (Auto) Eos % (Auto) Baso % (Auto) Immature Gran # (Auto) Neut # (Auto) Lymph # (Auto) [place] # (Auto) Eos # (Auto) Baso # (Auto) PT INR APTT (Factor Assay) Specimen Type Sample Site pH pCO2 pO2 HCO3 Base Excess Oxyhemoglobin ABG O2 Sat (Calculated) ABG O2 Saturation ABG Carboxyhemoglobin ABG Methemoglobin Eriberto Test A-a O2 Difference Total Hemoglobin Lactate Liter Flow Blood Gas Modality FiO2 % Sodium Potassium Chloride Carbon Dioxide Anion Gap BUN Creatinine Estimated GFR/1.73 m2 BUN/Creatinine Ratio Glucose Calculated Osmolality Calcium Magnesium Total Bilirubin AST ALT Alkaline Phosphatase Creatine Kinase Troponin T Ibe-K-Tnuwvjvsmtt Pept Total Protein Albumin Globulin Albumin/Globulin Ratio Plasma/Serum Ethyl Alc 0 Orders Category Date Time Status Cardiac Monitoring DIRECTED Care 11/20/16 21:22 Active Oxygen Therapy- ED Nursing DIRECTED Care 11/20/16 21:22 Active Saline Loc NOW Care 11/20/16 21:22 Active CHEST-PORTABLE [RAD] Stat Exams 11/20/16 21:23 Completed ABG [RESP] Routine Lab 11/20/16 21:10 Completed ALCOHOL BLOOD Stat Lab 11/20/16 21:30 Completed BLOOD CULTURE [BLDCUL] Stat Lab 11/20/16 21:40 Results CBC WITH ELECTRONIC DIFF [HEME] Stat Lab 11/20/16 21:30 Completed CK PROFILE [SP CHEM] Stat Lab 11/20/16 21:30 Completed COMPREHENSIVE METABOLIC PANEL [CHEM] Stat Lab 11/20/16 21:30 Completed MAGNESIUM [CHEM] Stat Lab 11/20/16 21:30 Completed PRO B-NATRIURETIC PEPTIDE Stat Lab 11/20/16 21:30 Completed [address]IME WITH INR PL [COAG] Stat Lab 11/20/16 21:[address] [COAG] Stat Lab 11/20/16 21:30 Completed TROPONIN T Stat Lab 11/20/16 21:30 Completed Furosemide [Lasix] Med 11/20/16 21:25 Discontinued 60 mg IV NOW ONE Lorazepam [Ativan] Med 11/20/16 22:43 Discontinued 1 mg IV NOW ONE Piperacillin/Tazobactam [Zosyn] 3.375 gm Med 11/20/16 22:30 Discontinued 0.9% Sodium Chloride Inj [Ns] 50 ml IV NOW EKG [EKG] Stat Ther 11/20/16 21:22 Draft Result Diagrams: 11/20/16 21:30 11/20/16 21:30 - XRAY 1 XRAY Study: Chest Impression: Abnormal Comparison with other Films: changes noted (mixed changes from prior. improvement in the bibasilar infiltrates/edema. new right upper lobe infiltrate which may suggest pneumonia.) - CONSULTS/PCP/HOSPITALIST Notification #1 *Consult/PCP/Hospitalist*: [place] Time Discussed: 23:09 Consult Disposition: Admit Departure - Departure Date of Disposition Decision: 11/20/16 Time of Disposition Decision: 22:31 DIAGNOSIS: Right upper lobe pneumonia, Alcohol withdrawal Disposition: ADMITTED INPATIENT 09 Certified Medical Emergency: Emergent Condition: Stable Referrals and Follow-Ups: None,PCP [Primary Care Provider] - - Critical Care Note This patient required my direct & personal management of CC.: No Attestation - Physician/ STEPHEN Attestation Patient care was provided by Advanced Practice Provider:: No The physician spent face to face time with patient:: Yes Advanced Practice Provider documentation review:: Supervising physician onsite and consulted in the evaluation and care of this patient. The physician did have a face to face encounter with the patient. This chart was documented by the indicated scribe, (Claudette Barboza Scribe) and accurately reflects the services I performed and decisions made by me, Socrates Russo MD, as attested by the provider's signature.
[2016-11-20 21:32] LABS: BE 7.8 mmoll (-3.0-3.0); BLOOD TYPE ARTERIAL; DRAW SITE L RADIAL; METHB 1.2 % (0.0-1.5); O2(CT) 19.6 mL/dL (15.0-23.0); PO2(98.6) 89 mmHg (60-100); SAMPLE BLOOD; SAO2 98.7 % (95.0-100.0); THB 14.8 g/dL (11.5-17.4)
[2016-11-20 21:46] LABS: ALLEN TEST YES; MODALITY CANNULA; PCO2(98.6) 56 mmHg (35-45)
--- NOTE | 2016-11-20 21:58 | ED EKG INTERP ---
This chart was entered by Claudette Barboza Scribe, acting as scribe for Socrates Russo MD. EKG Interpretation - EKG Time of EKG reading by physician:: 21:45 EKG Read and Signed by:: Socrates Russo (no STEMI) EKG Interpretation (*Must complete 3 of following elements*): Abnormal Rate: 130 Rhythm: atrial fibrillation with rapid ventricular response Comments: anterior infarct, age undetermined Attestation - Physician/ STEPHEN Attestation Patient care was provided by Advanced Practice Provider:: No The physician spent face to face time with patient:: Yes Advanced Practice Provider documentation review:: Supervising physician onsite and consulted in the evaluation and care of this patient. The physician did have a face to face encounter with the patient. This chart was documented by the indicated scribe, (Claudette Barboza Scribe) and accurately reflects the services I performed and decisions made by me, Socrates Russo MD, as attested by the provider's signature.
--- NOTE | 2016-11-20 22:03 | Diag Imaging Result Doc PS360 ---
CHEST-PORTABLE - 11/20/2016 INDICATION: sob TECHNIQUE: COMPARISON: 11/16/2016 FINDINGS: There is decrease in the bibasilar infiltrates/edema. There are stable trace pleural effusions. There is slight worsening infiltrate in the right upper lobe, nonspecific. This may represent pneumonia. IMPRESSION: Mixed changes from prior. Improvement in the bibasilar infiltrates/edema. New right upper lobe infiltrate which may suggest pneumonia. Electronically signed by Franco Bautista 11/20/2016 10:01 PM
[2016-11-20 22:09] LABS: BASO% 0.2 % (0.0-0.8); EOS# 0.06 X1000 (0.0-0.7); EOS% 0.6 % (0.0-10.0); HEMOGLOBIN 14.4 g/dL (14.0-18.0); IMM GRAN# 0.01 X1000 (0.0-0.04); IMM GRAN% 0.1 % (0.0-0.5); LYMPH# 1.14 X1000 (1.2-3.4); LYMPH% 12.2 % (20.5-51.1); MANUAL DIFF NEEDED? NO; MCHC 33.5 g/dL (33-37); MCV 110.5 FL (81-99); MONO% 14.9 % (1.7-9.3); MPV 10.2 FL (7.4-10.4); PLT 134 X1000 (130-400); RBC 3.89 XMIL (4.7-6.1)
[2016-11-20 22:11] LABS: AGAP 10; ALBUMIN 3.4 g/dL (3.5-5.0); ALKALINE PHOSPHATASE 45 U/L (32-122); BUN 12 mg/dL (8-22); CALCIUM 9.1 mg/dL (8.8-10.2); CHLORIDE 96 mmol/L (98-107); CK PROFILE 73 U/L (24-204); COSMO 273; GOT 25 U/L (10-34); GPT 20 U/L (10-44); MAGNESIUM 1.5 mg/dL (1.5-2.7); POTASSIUM 3.9 mmol/L (3.5-5.1); SODIUM 136 mmol/L (136-145); TCO2 30 mmol/L (25-35); TOTAL PROTEIN 6.8 g/dL (6.3-8.3)
--- NOTE | 2016-11-20 22:11 | EKG Report ---
Test Performed on : 11/20/2016 9:44:03 PM Test Reason : CHEST PAIN Blood Pressure : / mmHG Vent. Rate : 130 BPM Atrial Rate : 125 BPM P-R Int : 000 ms QRS Dur : 086 ms QT Int : 330 ms P-R-T Axes : 000 052 059 degrees QTc Int : 485 ms Atrial fibrillation. with rapid ventricular response. Anterior infarct (cited on or before 19-NOV-2016) Abnormal ECG When compared with ECG of 19-NOV-2016 07:39, (Unconfirmed) Nonspecific T wave abnormality no longer evident in Inferior leads Nonspecific T wave abnormality no longer evident in Lateral leads Unconfirmed Result
[2016-11-20] MEDS ORDERED: ZOSYN 3.375 GM in NS 50 ML IV ONE (22:30)
[2016-11-20 22:32] LABS: INR 0.98 (0.86-1.15); PROTIME 13.8 Seconds (12.1-15.5)
[2016-11-20 22:33] LABS: PTT PL 30.9 Seconds (22.6-43.9)
[2016-11-20] MEDS ORDERED: ATIVAN IV ONE (22:43)
[2016-11-21] MEDS ORDERED: PNEUMOVAX 23 IM ONE (00:46)
[2016-11-21] MEDS: ZOSYN 3.375 GM in NS 50 ML IV SCH ×5 (00:48→22:45)
[2016-11-21 01:06] LABS: BILIRUBIN URINE NEGATIVE (NEGATIVE); BLOOD URINE 4+ (NEGATIVE); CLARITY CLEAR (CLEAR); COLOR YELLOW; GLUCOSE URINE NEGATIVE (NEGATIVE); LEUKOCYTES URINE 1+ (NEGATIVE); NITRITE URINE NEGATIVE (NEGATIVE); PH URINE 6.5; PROTEIN URINE TRACE mg/dL (NEGATIVE); URINE SOURCE CATH; UROBILINOGEN URINE 4+(12 mg/dL)
[2016-11-21 01:09] LABS: URINE EPITHELIAL CELLS <10 /HPF (<10); URINE WBC <10 /HPF (<10)
[2016-11-21 01:10] LABS: URINE CULTURE PL NEEDED? YES
[2016-11-21] MEDS: ATIVAN IV PRN ×2 (02:41→19:17)
[2016-11-21 10:02] LABS: BE 9.9 mmoll (-3.0-3.0); BLOOD TYPE ARTERIAL; DRAW SITE R RADIAL; METHB 1.2 % (0.0-1.5); O2(CT) 19.1 mL/dL (15.0-23.0); PO2(98.6) 95 mmHg (60-100); SAMPLE BLOOD; SAO2 99.3 % (95.0-100.0); THB 14.3 g/dL (11.5-17.4)
[2016-11-21 10:05] LABS: ALLEN TEST YES; MODALITY VENTIMASK; PCO2(98.6) 60 mmHg (35-45)
[2016-11-21] MEDS ORDERED: BENTYL PO PRN (10:17)
[2016-11-21] MEDS: LASIX IV SCH ×2 (10:37→22:45)
[2016-11-21] MEDS: LIBRIUM PO SCH ×3 (10:37→22:45)
[2016-11-21] MEDS: CARDIZEM 100 MG/NS 100 MG/100 ML IVPB IV SCH ×3 (10:38→20:18)
[2016-11-21] MEDS ORDERED: M.V.I.-12 10 ML, FOLIC ACID 1 MG, MAGNESIUM SULFATE 1 GM, THIAMINE 100 MG in NS 1,000 ML IV ONE (11:00)
--- NOTE | 2016-11-21 11:06 | EKG Report ---
Test Performed on : 11/21/2016 10:28:27 AM Test Reason : a-fib Blood Pressure : / mmHG Vent. Rate : 130 BPM Atrial Rate : 130 BPM P-R Int : 000 ms QRS Dur : 086 ms QT Int : 320 ms P-R-T Axes : 000 066 076 degrees QTc Int : 470 ms Atrial fibrillation. with rapid ventricular response. Anterior infarct (cited on or before 19-NOV-2016) Abnormal ECG When compared with ECG of 21-NOV-2016 10:27, (Unconfirmed) Atrial fibrillation. has replaced Sinus rhythm. Confirmed by Cale Turner MD ([id number]) on 12/01/2016 7:04:25 PM
[2016-11-21] MEDS: DUONEB (A & A) INH SCH ×3 (15:50→23:15)
--- NOTE | 2016-11-21 17:22 | HISTORY AND PHYSICAL ---
CHIEF COMPLAINT: Difficulty breathing. HISTORY OF PRESENT ILLNESS: This is a 66-year-old gentleman who presented to the emergency room complaining of difficulty breathing. He was found to have O2 saturations of 86 , room air on arrival, with heart rates in the 120s-140s, atrial fibrillation with rapid ventricular response. Blood pressures were stable during this time in the 120s-150s over primarily 80s to 90s. He was given Lasix and Ativan in the emergency room along with Zosyn and admitted for further evaluation and treatment. PAST MEDICAL HISTORY: COPD, hypertension, atrial fibrillation. PAST SURGICAL HISTORY: Hernia repair. SOCIAL HISTORY: He drinks alcohol daily. He smokes a pack a day. He denies illicit drug use. ALLERGIES: Codeine, which causes vomiting. HOME MEDICATIONS: Cardizem CD 120 daily, Lanoxin 125 mcg daily, Librium 50 mg p.o. q. 8 hours. These prescriptions were given to the patient as he was leaving [place] on 2016 although he did not get these filled. REVIEW OF SYSTEMS: A 14-point review of systems is discussed with patient with pertinent positives being stated in the HPI. He denies chest pain, palpitations, dizziness, syncope, any nausea, vomiting, diarrhea, constipation, black or bloody vomitus, black or bloody stools. PHYSICAL EXAMINATION: VITAL SIGNS: Blood pressure is 145/100, with a heart rate of 120, atrial fibrillation, respirations are 22-23, temperature is 98.6 degrees oral with O2 saturations of 97-98% on 4 L nasal cannula. HEENT: Head is normocephalic, atraumatic. Pupils equal, round, react to light. EOMs are intact. Sclerae anicteric. Mucous membranes are moist. NECK: Supple. Trachea midline. CARDIOVASCULAR: Irregularly irregular rate and rhythm, S1, S2 appreciated. PULMONARY: Breath sounds are diminished throughout with crackles noted particularly in the bases. He does have some rhonchi at the right upper lobe that do not clear to cough. GASTROINTESTINAL: Abdomen is soft, nontender, nondistended with bowel sounds in all 4 quadrants. EXTREMITIES: No clubbing, cyanosis, but pitting edema 1+ bilateral lower extremities. : Prather is patent with clear yellow urine draining. NEUROLOGIC: He is alert. He is lethargic. He does follow commands. He does answer questions in short phrases. DIAGNOSTICS: WBC is 9.3 with a hemoglobin of 14.4, hematocrit 43 and platelets of 134,000. Sodium is 136, potassium 3.9, BUN 12, creatinine 0.6 with a glucose of 119. ProBNP is 3102. ABGs pH is 7.4 with a pCO2 56, PO2 of 89, and bicarb of 30.9. This is on 4 L nasal cannula. He was changed over to a Venti mask due to his respirations. PH was 7.4 with a pCO2 of 60, PO2 of 95 and bicarb of 32. Chest x-ray reveals improvement in the bibasilar infiltrates, now with a new right upper lobe infiltrate, which may suggest pneumonia. ASSESSMENT AND PLAN: 1. Atrial fibrillation, rapid ventricular response. 2. Acute respiratory failure, hypercapnic and hypoxic. 3. Right upper lobe pneumonia. 4. Chronic obstructive pulmonary disease. 5. Hypertension. 6. Tobacco use. 7. Alcohol use. PLAN: Patient will be admitted to ICU and placed on telemetry. We will give supplemental oxygen as appropriate. We will give DuoNeb q. 4 hours with q. 2 p.r.n. Will continue neuro checks. We will identify his home medications. We will hold his home medications. We will start him on a Cardizem drip, Lasix 40 mg q. 12 hours. He did go home and drink after discharge reportedly having drank vodka and coke through the day and just prior to coming to the emergency room. We will start him on a banana bag, give a Librium taper with p.r.n. Ativan and Bentyl. It is most likely that he has aspiration pneumonia. Blood cultures as well as urine culture were obtained in the emergency room. We will continue Zosyn for antibiotic coverage. Any changes in antibiotics will be culture driven. Further treatments pending hospital course. Dictated by RUIZ Gunderson for Kirby Calvert MD cc: RUIZ Gunderson MD [facility]
[2016-11-21] MEDS ORDERED: VANCOMYCIN IV PER PHARMACY MISC SCH (17:45)
[2016-11-21] MEDS: VANCOMYCIN 1 GM/NS 1 GM/250 ML IVPB IV SCH ×2 (18:27→20:18)
[2016-11-22] MEDS: ATIVAN IV PRN ×3 (00:39→20:57)
[2016-11-22] MEDS: DUONEB (A & A) INH SCH ×6 (02:35→22:45)
--- NOTE | 2016-11-22 03:50 | PROGRESS NOTE ---
DATE: 11/21/2016 ADDENDUM: Please see full H and P by nurse practitioner. Patient was seen and examined and discussed with and plan discussed with nurse practitioner. Patient unfortunately upon discharge a few days ago was an extremely high readmission risk. We did not actually want to discharge him from the hospital as noted on those notes however Mr. Castellanos demanded that he be discharged home stating that he was not staying in the hospital regardless of what we said. He stated that he wanted to go home and drink. As noted on the HPI from the ER, that appears to be exactly what he did. On discharge this last hospitalization he was awake, alert. He was in no distress although he was in atrial fibrillation. His lungs were clear. He certainly may have been on home and overindulged in alcohol which caused him to aspirate. At this point he has pneumonia. Will continue to follow. cc: Kirby Calvert MD
[2016-11-22] MEDS: ZOSYN 3.375 GM in NS 50 ML IV SCH ×4 (04:43→22:43)
[2016-11-22] MEDS: LIBRIUM PO SCH ×3 (04:44→18:04)
[2016-11-22] MEDS: CARDIZEM 100 MG/NS 100 MG/100 ML IVPB IV SCH ×2 (04:51→20:58)
[2016-11-22 06:00] LABS: HEMATOCRIT 41.2 % (42.0-52.0); HEMOGLOBIN 13.6 g/dL (14.0-18.0); MCH 36.7 PG (27-31); MCV 111.1 FL (81-99); MPV 10.1 FL (7.4-10.4); RBC 3.71 XMIL (4.7-6.1)
[2016-11-22 06:12] LABS: AGAP 9; ALKALINE PHOSPHATASE 49 U/L (32-122); BUN 13 mg/dL (8-22); CALCIUM 9.1 mg/dL (8.8-10.2); CHLORIDE 95 mmol/L (98-107); COSMO 284; GOT 20 U/L (10-34); GPT 16 U/L (10-44); HDL 62 mg/dL (35-55); LDL 50 mg/dL; MAGNESIUM 1.5 mg/dL (1.5-2.7); SODIUM 142 mmol/L (136-145); TCO2 38 mmol/L (25-35); TOTAL PROTEIN 6.7 g/dL (6.3-8.3); TRIGLYCERIDES 77 mg/dL (39-160); VLDL 15 mg/dL
[2016-11-22] MEDS: VANCOMYCIN 2,000 MG in NS 500 ML IV SCH ×2 (08:49→20:56)
[2016-11-22] MEDS: NICODERM PATCH TD SCH (09:31)
[2016-11-22] MEDS: LASIX IV SCH ×2 (12:33→21:12)
--- NOTE | 2016-11-22 20:19 | PROGRESS NOTE ---
DATE: 11/22/2016 SUBJECTIVE: Patient is lying in bed. He is confused this morning. OBJECTIVE: Vital Signs: Reviewed. Temperature 97 degrees, pulse 100, respiratory 22-24, blood pressure 157/92. General: Patient is awake, alert. He is currently in minimal respiratory distress. He is confused at times. HEENT: Normocephalic, atraumatic. PEDRITO. Neck: Supple. CARDIOVASCULAR: Mild tachycardia. Chest: Decreased breath sounds. Positive rhonchi. No wheezing. Abdomen: Soft. Extremities: Moves all extremities. Neurologic: No focal changes. ASSESSMENT: 1. Chronic alcoholism, certainly is contributing to patient's acute delirium. We will continue Librium. 2. Pneumonia. Continue antibiotics and oxygen as well as breathing treatments. 3. Chronic obstructive pulmonary disease. 4. Chronic tobacco abuse. 5. Hypertension. 6. Atrial fibrillation. Continue on Cardizem drip. PLAN: We will continue patient in the ICU on Cardizem drip. Antibiotics, breathing treatments. His sister notes that at home he is physically unable to get about, so she goes to the store and buys alcohol for him. He certainly will need rehabilitation upon discharge. cc: Kirby Calvert MD
[2016-11-22] MEDS ORDERED: BENADRYL IV ONE (22:01)
[2016-11-22] MEDS ORDERED: ATIVAN IV ONE (22:02)
[2016-11-22] MEDS ORDERED: HALDOL IV ONE (22:02)
[2016-11-22] MEDS ORDERED: ATIVAN ONE (22:33)
[2016-11-22] MEDS ORDERED: BENADRYL ONE (22:33)
[2016-11-22] MEDS ORDERED: HALDOL ONE (22:34)
[2016-11-23] MEDS: LIBRIUM PO SCH ×4 (01:32→18:12)
[2016-11-23] MEDS: ATIVAN IV PRN ×5 (03:08→21:11)
[2016-11-23] MEDS: DUONEB (A & A) INH SCH ×3 (03:20→11:57)
[2016-11-23] MEDS: ZOSYN 3.375 GM in NS 50 ML IV SCH ×4 (04:26→23:22)
[2016-11-23] MEDS: CARDIZEM 100 MG/NS 100 MG/100 ML IVPB IV SCH ×3 (05:25→17:00)
[2016-11-23] MEDS: NICODERM PATCH TD SCH (08:27)
[2016-11-23] MEDS: LASIX IV SCH (10:04)
[2016-11-23 13:14] LABS: HEMATOCRIT 50.5 % (42.0-52.0); HEMOGLOBIN 16.8 g/dL (14.0-18.0); MCH 36.1 PG (27-31); MCHC 33.3 g/dL (33-37); MCV 108.4 FL (81-99); MPV 10.1 FL (7.4-10.4); RBC 4.66 XMIL (4.7-6.1)
--- NOTE | 2016-11-23 13:24 | PROGRESS NOTE ---
DATE: 11/23/2016 SUBJECTIVE: Patient has no complaints but he is still confused and fairly lethargic. OBJECTIVE: Vital signs: Blood pressure was 120/77, heart rate is still 120s, respiratory rate 28, temp was 97 degrees without fever overnight, saturations are 96% on 3 L. Cardiovascular: Irregularly irregular. Pulmonary: Bilateral breath sounds. Diminished at the bases. GI: Soft, nontender, nondistended. Bowel sounds are positive. LABORATORY DATA: I do not have anything today. Potassium was 3.0. His random vancomycin was 27. ASSESSMENT: This is a 66-year-old male with atrial fibrillation with rapid ventricular response, chronic alcohol use, pneumonia. 1. Pneumonia. He is on Zosyn which I think is good coverage, especially since possible aspiration. We will repeat chest x-ray tomorrow and follow. I am going to change his nebulizer treatments just because he is still tachycardic. 2. Atrial fibrillation with rapid ventricular response. He is on a Cardizem drip but still not rate controlled. We obviously need to look at his potassium and his magnesium. I am going to get cardiology to evaluate the patient. He was discharged on digoxin but I do not know if he has been taking it. I think we will add that back just for additional rate control and we will get a cardiology opinion. Although, this may simply be withdrawal compounding his atrial fibrillation with rapid ventricular response. 3. Alcohol abuse withdrawal. He still fairly confused. He is on a Librium taper. We will monitor closely. 4. Disposition. Pending his clinical status. Obviously he is not ready to go to the floor and still on the Cardizem drip. cc: Fernando Naranjo MD
[2016-11-23 13:39] LABS: AGAP 10; BUN 15 mg/dL (8-22); CALCIUM 9.6 mg/dL (8.8-10.2); CHLORIDE 94 mmol/L (98-107); COSMO 294; MAGNESIUM 1.5 mg/dL (1.5-2.7); SODIUM 146 mmol/L (136-145); TCO2 43 mmol/L (25-35)
[2016-11-23] MEDS: LOVENOX SUBQ SCH (13:55)
[2016-11-23] MEDS: LANOXIN IV SCH (13:55)
[2016-11-23] MEDS: POTASSIUM CHLORIDE 20 MEQ, MAGNESIUM SULFATE 2 GM, THIAMINE 100 MG, FOLIC ACID 1 MG, M.... IV SCH ×6 (14:00)
[2016-11-23 14:30] LABS: BE 20.3 mmoll (-3.0-3.0); BLOOD TYPE ARTERIAL; DRAW SITE L RADIAL; METHB 1.4 % (0.0-1.5); O2(CT) 20.7 mL/dL (15.0-23.0); PO2(98.6) 56 mmHg (60-100); SAMPLE BLOOD; SAO2 94.7 % (95.0-100.0); THB 16.3 g/dL (11.5-17.4); pH(98.6) 7.52 (7.35-7.45)
[2016-11-23 14:37] LABS: ALLEN TEST YES; MODALITY CANNULA
[2016-11-23 14:38] LABS: PCO2(98.6) 58 mmHg (35-45)
[2016-11-23] MEDS: XOPENEX NEB INH SCH ×2 (15:54→22:50)
[2016-11-23] MEDS ORDERED: LANOXIN IV ONE (16:32)
[2016-11-23] MEDS ORDERED: LOPRESSOR IV PRN (17:58)
--- NOTE | 2016-11-23 18:19 | CONSULTATION ---
DATE OF CONSULTATION: 11/23/2016 IMPRESSION: 1. Persistent atrial fibrillation with rapid ventricular rate. Tendency for tachycardia also probably driven by hyperadrenergic state in setting of alcohol withdrawal as well as related to pneumonia. 2. Chronic obstructive pulmonary disease. 3. Hypertension. 4. Alcohol dependency. Patient currently showing indication of alcohol withdrawal. RECOMMENDATIONS: 1. Add beta jason. 2. Intravenous hydration. 3. Continue to treat pneumonia as you are doing. 4. Benzodiazepines as you are doing for alcohol withdrawal. 5. Supplement magnesium and potassium. 6. Thiamine supplementation. HISTORY: This 66-year-old, white male, with past history of COPD, hypertension and alcoholism was recently admitted with dyspnea, productive cough, hypoxemia and atrial fibrillation with rapid ventricular rate. He has been found to have pneumonia. He has been started on intravenous Cardizem for rate control and treated for pneumonia as well as alcohol withdrawal. He has had some difficulty with rate control. He presently is confused and not able to give much history. After his initial admission on 11/21, he left AMA but then returned. It is also noteworthy that he was recently admitted here from November 16 to 11/20 with respiratory symptoms as well as atrial fibrillation with rapid ventricular rate. He was initially admitted 11/16 to 11/20 with dyspnea, suspected pneumonia and atrial fibrillation with rapid ventricular rate. He was treated with intravenous Cardizem and digoxin. He was seen in consultation by Dr. Alvarez. The patient became agitated and left AMA. He had further dyspnea and returned on the and was readmitted. Despite intravenous Cardizem, he is having difficulty with rate control of his atrial fibrillation. Digoxin has been resumed. PAST MEDICAL HISTORY: 1. COPD. 2. Hypertension. 3. Persistent atrial fibrillation. 4. Alcohol dependency/alcoholism. PAST SURGICAL HISTORY: Includes hernia repair. ALLERGIES: He is allergic or intolerant to codeine. MEDICATIONS: Prior to admission as listed. SOCIAL HISTORY: He drinks a significant amount of rum daily. He smokes a pack of cigarettes daily. FAMILY HISTORY: Negative for premature coronary disease. REVIEW OF SYSTEMS: Not reliably obtainable, given patient's confusion. PHYSICAL EXAMINATION: General: Reveals an older white male who is mildly lethargic, but easily aroused. He is confused. He has no respiratory distress. Vital Signs: Blood pressure 110/75, heart rate 110-120 and irregular with ECG monitor showing atrial fibrillation. HEENT: Extraocular movements intact. Mucous membranes are dry. Neck: Supple. No jugular venous distention. No carotid bruits. Chest: Auscultation of the chest reveals a few scattered rhonchi. Cardiac Exam: Reveals an irregular rate and rhythm without appreciable murmur or gallop. Abdomen: Soft, nontender. Extremities: Without edema. Neurologic Exam: Reveals him to be mildly lethargic, but arousable. Speech seems clear, but he is difficult to understand in respect to content. He moves all 4 extremities equally well. Skin: Warm and dry. Psychiatric: Reveals mood to be appropriate. DIAGNOSTIC STUDIES: EKG demonstrates atrial fibrillation with rapid ventricular rate. Cannot exclude anterior infarct of undetermined age. Laboratory data includes hematocrit of 50.5, white blood cell count 12.28, MCV 108.4. BUN 15, creatinine 1.0, potassium 3.0, magnesium 1.5. cc: Sikp Chiu MD
[2016-11-23] MEDS: LOPRESSOR PO SCH (20:33)
[2016-11-24] MEDS: LIBRIUM PO SCH (01:59)
[2016-11-24] MEDS: XOPENEX NEB INH SCH ×4 (03:01→21:10)
[2016-11-24 03:46] LABS: BE 17.9 mmoll (-3.0-3.0); BLOOD TYPE ARTERIAL; DRAW SITE L RADIAL; METHB 1.3 % (0.0-1.5); O2(CT) 19.1 mL/dL (15.0-23.0); PO2(98.6) 53 mmHg (60-100); SAMPLE BLOOD; SAO2 91.2 % (95.0-100.0); THB 15.6 g/dL (11.5-17.4)
[2016-11-24 03:55] LABS: ALLEN TEST YES; MODALITY VENTIMASK; PCO2(98.6) 77 mmHg (35-45)
[2016-11-24 05:18] LABS: ALBUMIN 3.1 g/dL (3.5-5.0); DIRECT BILIRUBIN 0.3 mg/dL (0.00-0.20); TOTAL PROTEIN 7.1 g/dL (6.3-8.3)
[2016-11-24] MEDS: ZOSYN 3.375 GM in NS 50 ML IV SCH ×4 (05:53→22:43)
--- NOTE | 2016-11-24 08:11 | Diag Imaging Result Doc PS360 ---
EXAM: CHEST-PORTABLE HISTORY: respiratory status decline TECHNIQUE: Single view of the chest was performed portably. COMPARISON: 11/20/2016 FINDINGS: There is cardiomegaly. There is increasing left pleural effusion and associated left lower lobe airspace disease. There is increasing edema throughout the right lung with more focal opacity right upper lobe. Small right effusion has slightly increased. IMPRESSION: Increasing left effusion and left lower lobe airspace disease. Increasing interstitial edema right lung and more focal opacity right upper lobe consistent with focal edema or pneumonia. Slight increase in right effusion. Electronically signed by Jessica Elizabeth 11/24/2016 8:09 AM
[2016-11-24] MEDS: VANCOMYCIN 1,500 MG in NS 250 ML IV SCH ×2 (08:18→20:11)
[2016-11-24] MEDS: LOPRESSOR PO SCH ×3 (08:19→20:10)
[2016-11-24] MEDS: NICODERM PATCH TD SCH (08:19)
[2016-11-24] MEDS: LANOXIN IV SCH (08:19)
[2016-11-24] MEDS: POTASSIUM CHLORIDE 20 MEQ, MAGNESIUM SULFATE 2 GM, THIAMINE 100 MG, FOLIC ACID 1 MG, M.... IV SCH ×6 (10:28)
[2016-11-24] MEDS ORDERED: LASIX IV SCH (12:00)
[2016-11-24 12:31] LABS: BE 17.7 mmoll (-3.0-3.0); BLOOD TYPE ARTERIAL; DRAW SITE R RADIAL; METHB 1.7 % (0.0-1.5); PO2(98.6) 62 mmHg (60-100); SAMPLE BLOOD; SAO2 95.4 % (95.0-100.0); THB 15.6 g/dL (11.5-17.4); pH(98.6) 7.45 (7.35-7.45)
[2016-11-24 12:34] LABS: ALLEN TEST YES; MODALITY BI PAP; PCO2(98.6) 66 mmHg (35-45)
[2016-11-24 12:48] LABS: CALCIUM 8.9 mg/dL (8.8-10.2); POTASSIUM 2.8 mmol/L (3.5-5.1)
[2016-11-24] MEDS: POTASSIUM CHLORIDE 20 MEQ/SWI 20 MEQ/100 ML IVPB IV SCH ×2 (12:51→14:45)
[2016-11-24] MEDS: LOVENOX SUBQ SCH (12:51)
[2016-11-24] MEDS ORDERED: NS 1,000 ML IV SCH (15:53)
[2016-11-24] MEDS: ATIVAN IV PRN (22:30)
[2016-11-25] MEDS: LOPRESSOR PO SCH ×2 (01:54→10:08)
[2016-11-25] MEDS: ZOSYN 3.375 GM in NS 50 ML IV SCH ×3 (04:34→20:44)
[2016-11-25] MEDS: XOPENEX NEB INH SCH ×4 (04:50→22:19)
[2016-11-25 06:11] LABS: CALCIUM 8.6 mg/dL (8.8-10.2); MAGNESIUM 2.5 mg/dL (1.5-2.7); POTASSIUM 3.2 mmol/L (3.5-5.1)
[2016-11-25 06:18] LABS: HEMATOCRIT 42.7 % (42.0-52.0); HEMOGLOBIN 13.8 g/dL (14.0-18.0); MCHC 32.3 g/dL (33-37); MCV 111.5 FL (81-99); MPV 10.5 FL (7.4-10.4); RBC 3.83 XMIL (4.7-6.1)
[2016-11-25] MEDS ORDERED: LASIX IV SCH (09:00)
[2016-11-25] MEDS: LANOXIN IV SCH (10:07)
[2016-11-25] MEDS: THIAMINE 100 MG, FOLIC ACID 1 MG, M.V.I.-12 10 ML in NS 500 ML IV SCH (10:08)
[2016-11-25] MEDS: NICODERM PATCH TD SCH (10:08)
[2016-11-25] MEDS: BREVIBLOC 2.5 GM/NS 2.5 GM/250 ML IV.SOLN IV SCH ×2 (13:09→22:54)
[2016-11-25] MEDS: LOVENOX SUBQ SCH (13:13)
--- NOTE | 2016-11-25 15:10 | Diag Imaging Result Doc PS360 ---
EXAM: CHEST-PORTABLE - 11/25/2016 HISTORY: dyspnea TECHNIQUE: Portable chest 2:05 PM COMPARISON: 11/24/2016 FINDINGS: Heart size appears within normal limits. There is increased infiltrate at the right base. There is been some decrease in infiltrate in the left base. There is ovoid right lobe opacity which appears grossly stable, possibly representing focal infiltrate. There is stable mild interstitial marking prominence. There are small bilateral pleural effusions. There is no pneumothorax identified. IMPRESSION: Increase in infiltrate at right base. This may relate to pneumonia and/or pulmonary edema. Decreased infiltrate at left base. Stable mild interstitial edema and small pleural effusions. Electronically signed by Juanjose Prince 11/25/2016 3:07 PM
[2016-11-25] MEDS: ATIVAN IV PRN (23:55)
[2016-11-26] MEDS: ZOSYN 3.375 GM in NS 50 ML IV SCH ×4 (01:20→23:46)
[2016-11-26] MEDS: XOPENEX NEB INH SCH ×4 (04:35→22:15)
[2016-11-26 05:59] LABS: HEMATOCRIT 43.9 % (42.0-52.0); HEMOGLOBIN 14.1 g/dL (14.0-18.0); MCH 36.2 PG (27-31); MCHC 32.1 g/dL (33-37); MCV 112.6 FL (81-99); MPV 10.5 FL (7.4-10.4); RBC 3.9 XMIL (4.7-6.1)
[2016-11-26 06:06] LABS: ALBUMIN 2.8 g/dL (3.5-5.0); CALCIUM 8.5 mg/dL (8.8-10.2); DIRECT BILIRUBIN 0.3 mg/dL (0.00-0.20); MAGNESIUM 2.4 mg/dL (1.5-2.7); POTASSIUM 3.3 mmol/L (3.5-5.1); TOTAL BILIRUBIN 0.6 mg/dL (0.20-1.00); TOTAL PROTEIN 6.1 g/dL (6.3-8.3)
[2016-11-26] MEDS ORDERED: BREVIBLOC 2.5 GM/NS 2.5 GM/250 ML IV.SOLN IV SCH (10:10)
[2016-11-26] MEDS ORDERED: LOPRESSOR PO SCH (10:15)
[2016-11-26] MEDS: ATIVAN IV PRN ×2 (11:09→23:47)
[2016-11-26] MEDS: NICODERM PATCH TD SCH (11:10)
[2016-11-26] MEDS: LANOXIN IV SCH (11:10)
[2016-11-26] MEDS: THIAMINE 100 MG, FOLIC ACID 1 MG, M.V.I.-12 10 ML in NS 500 ML IV SCH (11:11)
[2016-11-26] MEDS: POTASSIUM CHLORIDE 20 MEQ/SWI 20 MEQ/100 ML IVPB IV SCH ×2 (11:13→14:15)
[2016-11-26] MEDS ORDERED: ZYPREXA ZYDIS PO PRN (12:19)
[2016-11-26] MEDS: HALDOL IV PRN ×2 (12:46→23:46)
[2016-11-26] MEDS: MYCOSTATIN SUSP PO SCH ×3 (12:46→20:32)
[2016-11-26] MEDS: LOVENOX SUBQ SCH (12:46)
[2016-11-26] MEDS: D5 1/2 NS 1,000 ML IV SCH (14:15)
[2016-11-26] MEDS ORDERED: SEROQUEL PO PRN (15:39)
[2016-11-26] MEDS: LOPRESSOR PO SCH ×2 (15:55→20:32)
[2016-11-26 16:00] LABS: BE 14.2 mmoll (-3.0-3.0); BLOOD TYPE ARTERIAL; DRAW SITE R RADIAL; METHB 1.1 % (0.0-1.5); O2(CT) 18.4 mL/dL (15.0-23.0); PO2(98.6) 53 mmHg (60-100); SAMPLE BLOOD; SAO2 89.4 % (95.0-100.0); THB 15.2 g/dL (11.5-17.4)
[2016-11-26 16:07] LABS: PCO2(98.6) 93 mmHg (35-45)
[2016-11-26 16:08] LABS: ALLEN TEST YES; MODALITY BI PAP; SRATE 12 BPM
--- NOTE | 2016-11-26 17:19 | EKG Report ---
Test Performed on : 11/26/2016 3:04:30 PM Test Reason : afib Blood Pressure : / mmHG Vent. Rate : 106 BPM Atrial Rate : 416 BPM P-R Int : 000 ms QRS Dur : 126 ms QT Int : 296 ms P-R-T Axes : 000 079 246 degrees QTc Int : 393 ms Atrial fibrillation. with rapid ventricular response. Nonspecific intraventricular block T wave abnormality, consider inferior ischemia Abnormal ECG When compared with ECG of 21-NOV-2016 10:28, (Unconfirmed) Significant changes have occurred Confirmed by Cale Turner MD ([id number]) on 12/01/2016 7:02:37 PM
[2016-11-26] MEDS ORDERED: ZOSYN ONE (17:42)
--- NOTE | 2016-11-26 17:46 | Diag Imaging Result Doc PS360 ---
EXAM: CT HEAD W/O CONTRAST HISTORY: encephalopathy TECHNIQUE: CT of the head without contrast with dose reduction (clarity.) COMMENT: Some motion artifact is present. There is no evidence of mass effect, bleed, abnormal extra-axial fluid collection, or hydrocephalus. There is calcification in the left vertebral and both internal carotid arteries. There has been previous maxillary antral window formation bilaterally. There is chronic appearing mucosal thickening in the left frontal sinus. The calvarium is intact. IMPRESSION: No evidence of acute intracranial disease. Electronically signed by Shekhar Mcdonough 11/26/2016 5:44 PM
[2016-11-26] MEDS ORDERED: NS 50 ML ONE (18:38)
[2016-11-26] MEDS ORDERED: ZYPREXA ZYDIS PO SCH (21:00)
[2016-11-27] MEDS: D5 1/2 NS 1,000 ML IV SCH ×3 (01:45→10:54)
[2016-11-27] MEDS: XOPENEX NEB INH SCH ×4 (03:50→21:57)
[2016-11-27] MEDS: ZOSYN 3.375 GM in NS 50 ML IV SCH ×3 (04:00→23:00)
[2016-11-27] MEDS: LOPRESSOR PO SCH ×2 (04:00→10:29)
[2016-11-27 06:48] LABS: AGAP 6; BUN 28 mg/dL (8-22); CALCIUM 8.9 mg/dL (8.8-10.2); CHLORIDE 106 mmol/L (98-107); COSMO 302; MAGNESIUM 2.3 mg/dL (1.5-2.7); POTASSIUM 3.1 mmol/L (3.5-5.1); SODIUM 149 mmol/L (136-145); TCO2 37 mmol/L (25-35)
[2016-11-27 06:55] LABS: HEMATOCRIT 45.1 % (42.0-52.0); HEMOGLOBIN 14.5 g/dL (14.0-18.0); MCHC 32.2 g/dL (33-37); MCV 111.9 FL (81-99); MPV 10.9 FL (7.4-10.4); RBC 4.03 XMIL (4.7-6.1)
[2016-11-27] MEDS ORDERED: LANOXIN PO SCH (09:00)
[2016-11-27] MEDS: THIAMINE 100 MG, FOLIC ACID 1 MG, M.V.I.-12 10 ML in NS 500 ML IV SCH (09:33)
[2016-11-27] MEDS: NICODERM PATCH TD SCH (09:33)
[2016-11-27 09:39] LABS: ALBUMIN 2.4 g/dL (3.5-5.0)
[2016-11-27] MEDS: MYCOSTATIN SUSP PO SCH ×4 (10:26→19:59)
[2016-11-27 11:12] LABS: BE 14.6 mmoll (-3.0-3.0); BLOOD TYPE ARTERIAL; DRAW SITE R RADIAL; METHB 1.4 % (0.0-1.5); O2(CT) 19.3 mL/dL (15.0-23.0); PO2(98.6) 71 mmHg (60-100); SAMPLE BLOOD; SAO2 97.8 % (95.0-100.0); SRATE 12 BPM; THB 14.6 g/dL (11.5-17.4); pH(98.6) 7.45 (7.35-7.45)
[2016-11-27 11:15] LABS: MODALITY BI PAP; PCO2(98.6) 60 mmHg (35-45)
[2016-11-27 11:16] LABS: ALLEN TEST YES
[2016-11-27] MEDS: BREVIBLOC 2.5 GM/NS 2.5 GM/250 ML IV.SOLN IV SCH ×3 (11:38→21:25)
[2016-11-27] MEDS: POTASSIUM CHLORIDE 20 MEQ/SWI 20 MEQ/100 ML IVPB IV SCH ×4 (11:43→22:00)
[2016-11-27] MEDS: D5 1/4 NS 1,000 ML IV SCH (14:19)
[2016-11-27] MEDS: LOVENOX SUBQ SCH (14:22)
[2016-11-27 15:27] LABS: PREALBUMIN 5.9 mg/dL (20-40)
--- NOTE | 2016-11-27 15:36 | PROGRESS NOTE ---
DATE: 11/27/2016 SUBJECTIVE: Patient is still confused. He is having episodic episodes were he just gets hypercapnic. OBJECTIVE: Blood pressure is 149/103, heart rate of 109, respiratory 25, temperature 97.8 degrees, 100% on 50%. PROBLEM LIST: 1. Acute hypercapnic respiratory failure. He is back on BiPAP and he had been doing okay there for a little bit and then we have had to put him back on BiPAP due to his agitation. 2. Pneumonia right lower lobe. He is on Zosyn. We will continue empiric antibiotics and follow clinically. 3. Atrial fibrillation with rapid ventricular response. He is not mentating well enough today to tolerate p.o. so we will put him back on his block and follow clinically. Cardiology has been managing. They recommended beta-jason versus calcium channel jason. 4. Metabolic encephalopathy. He is still confused. He has really been off all his other medications. He is still hypernatremic and hypokalemic. We will continue fluids. I am going to change his D5 to just plain D5 and will see how he does with that. 5. Hypokalemia. We will supplement and follow. We did a head CT yesterday and it did not show any acute process. I do not think there has been a cerebrovascular accident or anything. I think this is still related to alcohol withdrawal. We will continue to monitor very closely. cc: Fernando Naranjo MD
[2016-11-27] MEDS: HALDOL IV PRN (16:08)
[2016-11-27] MEDS ORDERED: ATIVAN IV PRN (17:09)
[2016-11-27] MEDS: LANOXIN IV SCH (17:10)
[2016-11-27] MEDS ORDERED: IMODIUM PO PRN (17:20)
[2016-11-28] MEDS: D5 1/4 NS 1,000 ML IV SCH (01:00)
[2016-11-28] MEDS: BREVIBLOC 2.5 GM/NS 2.5 GM/250 ML IV.SOLN IV SCH ×5 (01:16→21:05)
[2016-11-28] MEDS: XOPENEX NEB INH SCH ×4 (03:59→22:27)
[2016-11-28 04:54] LABS: HEMATOCRIT 43.5 % (42.0-52.0); HEMOGLOBIN 13.8 g/dL (14.0-18.0); MCH 35.8 PG (27-31); MCHC 31.7 g/dL (33-37); MPV 10.9 FL (7.4-10.4); RBC 3.85 XMIL (4.7-6.1)
[2016-11-28] MEDS: ZOSYN 3.375 GM in NS 50 ML IV SCH ×2 (05:00→09:57)
[2016-11-28 05:16] LABS: AGAP 6; ALBUMIN 2.7 g/dL (3.5-5.0); ALKALINE PHOSPHATASE 39 U/L (32-122); BUN 22 mg/dL (8-22); CALCIUM 8.7 mg/dL (8.8-10.2); CHLORIDE 109 mmol/L (98-107); COSMO 303; GOT 24 U/L (10-34); GPT 16 U/L (10-44); POTASSIUM 3.7 mmol/L (3.5-5.1); SODIUM 150 mmol/L (136-145); TCO2 35 mmol/L (25-35); TOTAL PROTEIN 5.6 g/dL (6.3-8.3)
[2016-11-28] MEDS ORDERED: CALMOSEPTINE OINTMENT TOP PRN (06:26)
--- NOTE | 2016-11-28 07:41 | Diag Imaging Result Doc PS360 ---
EXAM: CHEST-PORTABLE HISTORY: PNA TECHNIQUE: Erect AP portable at 0719 COMMENT: There is alveolar opacity in the right lower lobe. The inspiration is less optimal than on 11/25/2016 which probably accounts for any difference in appearance. The left lower lobe is clearer than on the previous exam. IMPRESSION: Right lower lobe pneumonia. Resolution of atelectasis or pneumonia left lower lobe. Electronically signed by Shekhar Mcdonough 11/28/2016 7:38 AM
[2016-11-28 08:30] LABS: BLOOD TYPE ARTERIAL; PO2(98.6) 75 mmHg (60-100); SAMPLE BLOOD
[2016-11-28] MEDS: LANOXIN IV SCH (08:30)
[2016-11-28] MEDS: MYCOSTATIN SUSP PO SCH ×4 (08:31→20:01)
[2016-11-28] MEDS: NICODERM PATCH TD SCH (08:31)
[2016-11-28 08:33] LABS: ALLEN TEST YES; DRAW SITE L RADIAL; MODALITY BI PAP
[2016-11-28 08:37] LABS: PCO2(98.6) 94 mmHg (35-45); pH(98.6) 7.21 (7.35-7.45)
[2016-11-28] MEDS ORDERED: POTASSIUM CHLORIDE IV SCH ×6 (09:00)
[2016-11-28] MEDS ORDERED: M V I IV SCH ×6 (09:00)
[2016-11-28] MEDS ORDERED: FOLIC ACID IV SCH ×6 (09:00)
[2016-11-28] MEDS ORDERED: [UNRECOGNIZED DRUG - OTHER] IV SCH ×6 (09:00)
[2016-11-28] MEDS ORDERED: THIAMINE IV SCH ×6 (09:00)
[2016-11-28] MEDS: MAXIPIME 1 GM in NS 50 ML IV SCH ×2 (11:09→23:00)
[2016-11-28] MEDS: D5W 1,000 ML IV SCH (12:08)
[2016-11-28] MEDS: CLINIMIX E 4.25%-5% SOLUTION 1,000 ML IV SCH (12:08)
--- NOTE | 2016-11-28 12:49 | PROGRESS NOTE ---
DATE: 11/28/2016 SUBJECTIVE: The patient has no focal complaints, but he is pretty much not obtunded but very lethargic. He had another episode this morning of decreased responsiveness and came in for evaluation. OBJECTIVE: Blood pressure is 153/83, heart rate of 103, respiratory rate of 36, temperature 98.4, saturation 97% on 50%. Cardiovascular: Regular rate and rhythm. Pulmonary: Bilateral breath sounds clear to auscultation. GI: Soft, nontender and nondistended. Bowel sounds were positive. Extremities had no clubbing or cyanosis. Lymphatic: No peripheral edema. DIAGNOSTIC DATA: White count is hemoglobin and hematocrit of 13 and 43, platelets 258. Blood gas this morning showed pH of 7.21, pCO2 of 94. Chest x-ray shows persistent right lower lobe infiltrate. IMPRESSION: 1. Acute hypercapnic respiratory failure, recurrent. We will continue BiPAP, try to schedule at night and p.r.n. Try to hold any sedating medications, because I think that may be not helping with mental status and CO2 retention and follow. 2. Right lower lobe pneumonia. I am going to change him to cefepime and Flagyl just because the hypernatremia is an issue which may be compounded somewhat by the Zosyn. 3. Atrial fibrillation with rapid ventricular response. He is on Brevibloc and rate controlled. He will likely need terminal manager anticoagulation. At this point because of his respiratory issues, we have not progressed with that. 4. Metabolic encephalopathy. He is still intermittently confused. Multiple issues contributing including hypernatremia and hypercapnia. We will follow. Again try to hold sedating medications. 5. Hypernatremia. We will switch to D5 and follow. 6. Hypokalemia. We will supplement and follow. DISPOSITION: Pending clinical improvement. I anticipate he will need inpatient rehab with his confusion issues. cc: Fernando Naranjo MD
[2016-11-28 12:57] LABS: BE 6.2 mmoll (-3.0-3.0); BLOOD TYPE ARTERIAL; DRAW SITE L RADIAL; METHB 1.1 % (0.0-1.5); PO2(98.6) 59 mmHg (60-100); SAMPLE BLOOD; SAO2 94.5 % (95.0-100.0); THB 18.1 g/dL (11.5-17.4); pH(98.6) 7.34 (7.35-7.45)
[2016-11-28 13:01] LABS: MODALITY BI PAP; PCO2(98.6) 65 mmHg (35-45)
[2016-11-28 13:02] LABS: ALLEN TEST YES
[2016-11-28] MEDS: FLAGYL 500 MG/NS 500 MG/100 ML IVPB IV SCH ×2 (13:35→17:46)
[2016-11-28] MEDS: LOVENOX SUBQ SCH (13:35)
[2016-11-28] MEDS: HALDOL IV PRN (20:00)
[2016-11-28] MEDS: SEROQUEL PO SCH (20:02)
[2016-11-29] MEDS: D5W 1,000 ML IV SCH (00:15)
[2016-11-29] MEDS: CLINIMIX E 4.25%-5% SOLUTION 1,000 ML IV SCH ×4 (00:56→09:03)
[2016-11-29] MEDS: BREVIBLOC 2.5 GM/NS 2.5 GM/250 ML IV.SOLN IV SCH ×2 (03:20→08:17)
[2016-11-29] MEDS: XOPENEX NEB INH SCH ×4 (03:48→22:49)
[2016-11-29 06:01] LABS: BE 9.7 mmoll (-3.0-3.0); BLOOD TYPE ARTERIAL; DRAW SITE R RADIAL; METHB 1.1 % (0.0-1.5); O2(CT) 17.8 mL/dL (15.0-23.0); PO2(98.6) 65 mmHg (60-100); SAMPLE BLOOD; SAO2 97.2 % (95.0-100.0); THB 13.5 g/dL (11.5-17.4); pH(98.6) 7.45 (7.35-7.45)
[2016-11-29 06:05] LABS: ALLEN TEST YES; MODALITY BI PAP; PCO2(98.6) 51 mmHg (35-45)
[2016-11-29 06:23] LABS: HEMATOCRIT 43.7 % (42.0-52.0); HEMOGLOBIN 13.6 g/dL (14.0-18.0); MCH 35.1 PG (27-31); MCHC 31.1 g/dL (33-37); MCV 112.9 FL (81-99); MPV 11.1 FL (7.4-10.4); RBC 3.87 XMIL (4.7-6.1)
[2016-11-29 06:34] LABS: AGAP 7; BUN 26 mg/dL (8-22); CALCIUM 8.6 mg/dL (8.8-10.2); CHLORIDE 106 mmol/L (98-107); COSMO 296; MAGNESIUM 2.1 mg/dL (1.5-2.7); SODIUM 146 mmol/L (136-145); TCO2 33 mmol/L (25-35)
[2016-11-29] MEDS: FLAGYL 500 MG/NS 500 MG/100 ML IVPB IV SCH ×4 (07:05→20:05)
--- NOTE | 2016-11-29 07:21 | Diag Imaging Result Doc PS360 ---
EXAM: CHEST-PORTABLE HISTORY: dyspnea TECHNIQUE: Erect AP portable at 0602 COMMENT: There is alveolar opacity in the right lower lobe consistent with pneumonia. This was also present on 11/28/2016. There is slight patchy opacity in the right upper lobe as well. Compared to 11/25/2016 the opacification the right lower lobe is somewhat denser but the right upper lobe opacity is less well defined. IMPRESSION: Right lower lobe and minimal right upper lobe pneumonia. Electronically signed by Shekhar Mcdonough 11/29/2016 7:19 AM
[2016-11-29] MEDS: MYCOSTATIN SUSP PO SCH ×4 (10:41→20:06)
[2016-11-29] MEDS: LOPRESSOR PO SCH ×3 (10:41→19:34)
[2016-11-29] MEDS: LANOXIN IV SCH (10:41)
[2016-11-29] MEDS: NICODERM PATCH TD SCH (10:41)
[2016-11-29] MEDS: MAXIPIME 1 GM in NS 50 ML IV SCH ×2 (10:42→23:30)
--- NOTE | 2016-11-29 11:25 | PROGRESS NOTE ---
DATE: 11/29/2016 SUBJECTIVE: The patient is more with it today. I still think he is a little confused, but he is certainly not as agitated or lethargic as he has been. OBJECTIVE: Vital Signs: Blood pressure 128/86, heart rate 105, respiratory rate 36, temperature 98.2 degrees, 100% on 3 liters. Cardiovascular: Irregular, irregular. Pulmonary: Bilateral breath sounds. Clear to auscultation. Gastrointestinal: Soft, nontender, nondistended. Bowel sounds are positive. Extremities: No clubbing or cyanosis. Lymphatics: No peripheral edema. Neurological: Nonfocal. LABORATORY DATA: White count 8, hemoglobin and hematocrit of 13 and 43, platelets 254,000. A pCO2 of 51. Sodium 146, BUN and creatinine of 26 and 1. PROBLEM LIST: 1. Acute hypercapnic respiratory failure. He seems better. We will continue intermittent BiPAP, holding sedate sedating medications. His CO2 has come down. 2. Right lower lobe and right upper lobe pneumonia. He is on cefepime and Flagyl. Cefepime is day 2. Flagyl I think is the same. He previously had been on Zosyn, which is very effective, but he was hypernatremic. 3. Atrial fibrillation with rapid ventricular response. We will transition off the Brevibloc today and on the Lopressor as the blood pressure tolerates. 4. Encephalopathy, likely multifactorial. It is slowly improving. Again, we are holding sedating medications. I think the alcohol withdrawal syndrome issues are resolved, as this is day 8. 5. Hypernatremia. I think he is doing better. We can probably stop the D-5 at this point. He is on Clinimix, I believe, just to avoid volume overload issues. DISPOSITION: If he stabilizes off the drip, he may be able to go out to the floor in the next 1 to 2 days. I think he probably will need inpatient rehab though when he stabilizes, which we have not been able to accomplish the last several days. cc: Fernando Naranjo MD
[2016-11-29] MEDS: LOVENOX SUBQ SCH (15:00)
[2016-11-29] MEDS: SEROQUEL PO SCH (20:06)
[2016-11-30] MEDS: HALDOL IV PRN ×2 (00:25→20:59)
[2016-11-30] MEDS: LOPRESSOR PO SCH (01:06)
[2016-11-30] MEDS ORDERED: LOPRESSOR PO ONE (02:48)
[2016-11-30] MEDS: FLAGYL 500 MG/NS 500 MG/100 ML IVPB IV SCH ×4 (03:10→20:59)
[2016-11-30] MEDS: XOPENEX NEB INH SCH ×3 (04:13→15:00)
[2016-11-30 05:55] LABS: BE 11.2 mmoll (-3.0-3.0); BLOOD TYPE ARTERIAL; DRAW SITE R RADIAL; METHB 1.2 % (0.0-1.5); O2(CT) 18.1 mL/dL (15.0-23.0); PO2(98.6) 63 mmHg (60-100); SAMPLE BLOOD; SAO2 95.9 % (95.0-100.0); THB 13.9 g/dL (11.5-17.4); pH(98.6) 7.46 (7.35-7.45)
[2016-11-30 06:00] LABS: ALLEN TEST YES; MODALITY BI PAP; PCO2(98.6) 52 mmHg (35-45)
[2016-11-30] MEDS ORDERED: BREVIBLOC 2.5 GM/NS 2.5 GM/250 ML IV.SOLN IV PRN (06:08)
[2016-11-30] MEDS: CLINIMIX E 4.25%-5% SOLUTION 1,000 ML IV SCH ×5 (06:37→23:32)
[2016-11-30 06:58] LABS: HEMATOCRIT 42.6 % (42.0-52.0); HEMOGLOBIN 13.6 g/dL (14.0-18.0); MCH 35.3 PG (27-31); MCHC 31.9 g/dL (33-37); MCV 110.6 FL (81-99); MPV 11.1 FL (7.4-10.4); RBC 3.85 XMIL (4.7-6.1)
[2016-11-30 07:07] LABS: AGAP 8; BUN 29 mg/dL (8-22); CALCIUM 9.2 mg/dL (8.8-10.2); CHLORIDE 109 mmol/L (98-107); COSMO 304; POTASSIUM 3.9 mmol/L (3.5-5.1); SODIUM 149 mmol/L (136-145); TCO2 32 mmol/L (25-35)
--- NOTE | 2016-11-30 07:28 | Diag Imaging Result Doc PS360 ---
EXAM: CHEST-PORTABLE - 11/30/2016 HISTORY: dyspnea TECHNIQUE: Portable chest 6:22 AM COMPARISON: 11/29/2016 FINDINGS: There is right lower lobe consolidation/pneumonia appears stable. There is minimal right upper lobe infiltrate which appear stable. There is mild subsegmental atelectasis at the left base. There is no substantial pleural effusion or pneumothorax identified. Heart size is normal. IMPRESSION: Stable exam compared to prior. Right lower lobe pneumonia. Minimal right upper lobe infiltrate. Electronically signed by Juanjose Prince 11/30/2016 7:26 AM
--- NOTE | 2016-11-30 08:51 | PROGRESS NOTE ---
DATE: 11/30/2016 SUBJECTIVE: The patient is confused, disoriented this morning. He is calm, however. PHYSICAL EXAMINATION: Vital Signs: Temperature 98 degrees, pulse 101 to 124, respiratory rate 22 to 40, blood pressure 161/99, saturation 99% on 3 liters nasal cannula. General: The patient is awake, but confused and disoriented. He does not follow commands. HEENT: Normocephalic, atraumatic. Neck: Supple. Cardiovascular: Irregular rate, irregular rhythm. Chest: Positive rhonchi throughout. No apparent wheezing. Abdomen: Soft. Extremities: Moves all extremities. Neurologic: Unable to assess due to his confusion. LABORATORY DATA: WBC is 12, hemoglobin and hematocrit are 13 and 42. His pH is 7.45 and pCO2 52 on BiPAP at 35% FiO2. Sodium 149. ASSESSMENT: 1. Hypernatremia. 2. Moderate protein-calorie malnutrition. Continue replacement. 3. Right lower lobe and right upper lobe pneumonia. Continue cefepime and Flagyl. 4. Acute hypercapnic respiratory failure. 5. Atrial fibrillation with rapid ventricular response. 6. Encephalopathy, multifactorial, to include his chronic alcoholism, as well as current infection. 7. Recurrent aspiration. PLAN: We will ask Speech to evaluate to assist with feeding. We will ask Cardiology to reevaluate his atrial fibrillation and get assistance on medication choices. We will continue antibiotics. Further orders as needed. cc: Kirby Calvert MD
[2016-11-30] MEDS: NICODERM PATCH TD SCH (08:55)
[2016-11-30] MEDS: LANOXIN IV SCH (08:56)
[2016-11-30] MEDS: MYCOSTATIN SUSP PO SCH ×4 (09:00→21:56)
[2016-11-30] MEDS ORDERED: LOPRESSOR PO SCH ×2 (09:00→21:00)
[2016-11-30 11:10] LABS: INR 1.11 (0.86-1.15); PROTIME 15.2 Seconds (12.1-15.5)
[2016-11-30] MEDS: MAXIPIME 1 GM in NS 50 ML IV SCH (14:35)
[2016-11-30] MEDS ORDERED: NS 250 ML ONE (14:54)
[2016-11-30] MEDS ORDERED: D5 1/4 NS 1,000 ML IV SCH (15:04)
[2016-11-30] MEDS ORDERED: 1/2 NS 500 ML IV ONE (15:09)
[2016-11-30 15:19] LABS: BE 10.2 mmoll (-3.0-3.0); BLOOD TYPE ARTERIAL; DRAW SITE L RADIAL; METHB 1.4 % (0.0-1.5); O2(CT) 19.6 mL/dL (15.0-23.0); PO2(98.6) 59 mmHg (60-100); SAMPLE BLOOD; SAO2 93.3 % (95.0-100.0); THB 15.5 g/dL (11.5-17.4)
[2016-11-30 15:22] LABS: ALLEN TEST YES; MODALITY VENTIMASK; PCO2(98.6) 83 mmHg (35-45)
--- NOTE | 2016-11-30 15:33 | PROGRESS NOTE ---
DATE: 11/30/2016 CARDIOLOGY FOLLOW-UP NOTE: SUBJECTIVE: Patient reportedly was more alert and active this morning. He has become somewhat agitated and with increased respiratory rate this afternoon. He appears to understand questions but speaks with a very weak voice. OBJECTIVE: Vital Signs: Blood pressure 128/80, heart rate 110-120 and irregular with ECG monitor showing atrial fibrillation. Oxygen saturation 93% on 4 L nasal cannula. Neck: There is no significant jugular venous distention. Chest: Auscultation of chest reveals few rhonchi. Cardiac Exam: Reveals an irregular rate and rhythm without appreciable murmur or gallop. There is no evidence of peripheral edema. IMPRESSION: 1. Right lower lobe and right upper lobe pneumonia currently being treated with antibiotics. 2. Atrial fibrillation. Persistent. Ventricular rate moderately increased. Patient having some difficulty swallowing and has been deemed suitable for thickened liquids. 3. Encephalopathy. This is likely multifactorial related to chronic alcoholism, current acute illness and apparent intravascular volume depletion with associated hyponatremia. It is not clear whether any of his medications might be contributing. 4. Recurrent aspiration. RECOMMENDATIONS: 1. Given persistence of atrial fibrillation, go ahead and administer Lovenox 80 mg subcutaneous q.12. 2. Supplement intravenous fluids and initiate continuous D5 quarter-normal saline to try and address hypernatremia. 3. Continue oral metoprolol as tolerated. We will add intravenous metoprolol to be used on an as needed basis. 4. Continue intravenous digoxin for now. 5. Check arterial blood gas. cc: Skip Chiu MD
[2016-11-30] MEDS ORDERED: CARDIZEM 100 MG/NS 100 MG/100 ML IVPB IV SCH (15:35)
[2016-11-30] MEDS: DUONEB (A & A) INH PRN (15:45)
--- NOTE | 2016-11-30 15:50 | PROGRESS NOTE ---
DATE: 11/30/2016 Patient continues with increased respiratory rate and BiPAP has been initiated. Arterial blood gas indicates pCO2 of 89 suggesting hypercapnic respiratory failure. Beta-blockers may be aggravating his tendency for wheezing presently. Bronchodilator bronchodilators to be administered and metoprolol dose reduced as oral Cardizem initiated. cc: Skip Chiu MD
[2016-11-30] MEDS ORDERED: 1/2 NS 1,000 ML ONE (16:42)
--- NOTE | 2016-11-30 16:58 | Diag Imaging Result Doc PS360 ---
CHEST-PORTABLE - 11/30/2016 at 1613 INDICATION: post PICC insertion TECHNIQUE: COMPARISON: 6:00 AM FINDINGS: There is a left PICC line in good position with the catheter tip at the lower SVC. Stable cardiomegaly. Stable bibasilar infiltrates right greater than left. Stable significant pulmonary vascular congestion. IMPRESSION: Good left PICC line position. Electronically signed by Franco Bautista 11/30/2016 4:56 PM
[2016-11-30] MEDS: LOPRESSOR IV PRN ×2 (19:01→21:27)
[2016-11-30] MEDS ORDERED: CARDIZEM PO SCH (20:00)
[2016-11-30] MEDS: SEROQUEL PO SCH (20:59)
[2016-11-30] MEDS ORDERED: ATIVAN IM ONE (21:40)
[2016-11-30] MEDS ORDERED: LANOXIN IV ONE (21:48)
[2016-11-30] MEDS: LOVENOX SUBQ SCH (22:00)
[2016-11-30 23:53] LABS: ALLEN TEST YES; BE 10.3 mmoll (-3.0-3.0); BLOOD TYPE ARTERIAL; DRAW SITE R RADIAL; METHB 0.9 % (0.0-1.5); O2(CT) 18.1 mL/dL (15.0-23.0); PO2(98.6) 98 mmHg (60-100); SAMPLE BLOOD; SRATE 4 BPM; THB 13.3 g/dL (11.5-17.4); pH(98.6) 7.37 (7.35-7.45)
[2016-11-30 23:55] LABS: MODALITY BI PAP; PCO2(98.6) 66 mmHg (35-45)
[2016-12-01] MEDS: CARDIZEM 100 MG/NS 100 MG/100 ML IVPB IV SCH ×4 (00:59→20:54)
[2016-12-01] MEDS: MAXIPIME 1 GM in NS 50 ML IV SCH ×2 (02:40→13:39)
[2016-12-01] MEDS: FLAGYL 500 MG/NS 500 MG/100 ML IVPB IV SCH (02:40)
[2016-12-01] MEDS ORDERED: XOPENEX NEB INH SCH (04:00)
[2016-12-01 04:54] LABS: ALLEN TEST YES; BE 11.2 mmoll (-3.0-3.0); BLOOD TYPE ARTERIAL; DRAW SITE R RADIAL; METHB 1.1 % (0.0-1.5); O2(CT) 21.6 mL/dL (15.0-23.0); PO2(98.6) 118 mmHg (60-100); SAMPLE BLOOD; SRATE 4 BPM; THB 15.8 g/dL (11.5-17.4); pH(98.6) 7.44 (7.35-7.45)
[2016-12-01 04:56] LABS: MODALITY BI PAP; PCO2(98.6) 56 mmHg (35-45)
[2016-12-01 06:29] LABS: AGAP 4; BUN 33 mg/dL (8-22); CALCIUM 9.1 mg/dL (8.8-10.2); CHLORIDE 111 mmol/L (98-107); COSMO 314; POTASSIUM 3.9 mmol/L (3.5-5.1); SODIUM 154 mmol/L (136-145); TCO2 39 mmol/L (25-35)
[2016-12-01 06:32] LABS: BASO% 0.4 % (0.0-0.8); EOS# 0.04 X1000 (0.0-0.7); EOS% 0.4 % (0.0-10.0); HEMATOCRIT 40.5 % (42.0-52.0); IMM GRAN# 0.03 X1000 (0.0-0.04); IMM GRAN% 0.3 % (0.0-0.5); LYMPH# 1.15 X1000 (1.2-3.4); LYMPH% 12.4 % (20.5-51.1); MANUAL DIFF NEEDED? YES; MCH 36.1 PG (27-31); MCHC 32.1 g/dL (33-37); MCV 112.5 FL (81-99); MONO# 1.18 X1000 (0.11-0.59); MONO% 12.7 % (1.7-9.3); NEUT% 73.8 % (42.2-75.2); PLT 289 X1000 (130-400)
[2016-12-01 07:03] LABS: BANDS 1 % (0-1); EOS 2 % (1-10); LYMPHS 6 % (21-51); MONO 7 % (1-9)
[2016-12-01] MEDS: LOPRESSOR IV PRN (07:22)
[2016-12-01] MEDS: HALDOL IV PRN ×2 (07:22→11:20)
[2016-12-01] MEDS: CLINIMIX E 4.25%-5% SOLUTION 1,000 ML IV SCH ×2 (07:29→15:46)
[2016-12-01] MEDS ORDERED: D5W 1,000 ML IV SCH (08:11)
[2016-12-01] MEDS: ATIVAN IV PRN ×3 (08:36→12:28)
[2016-12-01] MEDS: NICODERM PATCH TD SCH (08:37)
[2016-12-01] MEDS: LANOXIN IV SCH (08:37)
[2016-12-01] MEDS: ZOSYN 3.375 GM in NS 50 ML IV SCH ×3 (08:37→19:30)
[2016-12-01] MEDS: MYCOSTATIN SUSP PO SCH ×3 (08:39→16:01)
--- NOTE | 2016-12-01 09:35 | Diag Imaging Result Doc PS360 ---
EXAM: CHEST-PORTABLE HISTORY: pneumonia TECHNIQUE: Upright AP chest at 0920 COMMENT: There is increasing opacification of the right lower lobe and middle lobe with some patchy alveolar opacity in the right upper lobe and left lower lobe. This is definitely worse than on 11/30/2016. IMPRESSION: Worsening pneumonia plus minus pulmonary edema. Electronically signed by Shekhar Mcdonough 12/01/2016 9:33 AM
[2016-12-01] MEDS ORDERED: VANCOMYCIN IV PER PHARMACY MISC SCH (10:15)
[2016-12-01 10:29] LABS: MAGNESIUM 2.1 mg/dL (1.5-2.7)
--- NOTE | 2016-12-01 11:00 | PROGRESS NOTE ---
DATE: 12/01/2016 SUBJECTIVE: The patient is still confused and disoriented. As per nursing staff this morning, he was very restless and combative, so restraints with police. He is now using a BiPAP mask and he is very upset because of the mask. OBJECTIVE: Vital Signs: Temperature 97.8 degrees, heart rate 126, respiratory rate 28, blood pressure 124/84, O2 saturation 94% on BiPAP machine. General Examination: This is a chronically ill-looking and disheveled 66-year-old male, lying in bed, in no acute distress. HEENT: Head is normocephalic, atraumatic. Anicteric sclerae and pale conjunctivae. Mucous membranes very dry. The patient is using a BiPAP mask. Neck: Supple. No jugular venous distention noted. No carotid bruits. No lymphadenopathy. Cardiovascular Examination: S1, S2 heard. Irregularly irregular. No murmurs, gallops, or rubs. Respiratory Examination: Rhonchi in both pulmonary packer, mostly noted in both bases. Patient is not using any accessory muscles or having work of breathing. Abdomen: Soft, nontender to palpation. Bowel sounds present. No organomegaly. Extremities: No clubbing, cyanosis, or edema. Peripheral pulses present in both legs. Neurological Examination: Patient is restless. Sometimes he got calmed down and answers questions, but most of the time he is confused. Moves four extremities. Sometimes follow commands. LABORATORY DATA: White cell count 9.28, hemoglobin 13.0, hematocrit 40.5, platelets 289,000. ABG shows pH 7.34, with pCO2 56, pO2 118. Sodium 154, potassium 2.9, chloride 111, bicarbonate 29, BUN 33, creatinine 1.0. ASSESSMENT AND PLAN: 1. Acute respiratory failure. Currently the patient is on BiPAP mask because he becomes agitated and when that happens his oxygen saturation drops. At this point, we are going to continue with the same management. ABGs from this morning shows a good gas exchange. Pulmonary has been consulted. We will follow his recommendations. 2. Right lower lobe and right upper lobe pneumonia. Patient is on cefepime and we are going to switch Flagyl for Zosyn. White cell count is back to normal today. The patient is not spiking any fever this morning, but yesterday night he spiked 100.3, that is why we are changing antibiotics. In any case, we will continue with both medications. 3. Hypernatremia. We are going to change fluids to D5W at 75 mL/h. We will check BMP tomorrow. 4. Atrial fibrillation with rapid ventricular response. Patient's heart rate is better controlled. Patient has been seen by cardiology. Patient is receiving digoxin IV, Cardizem drip, and also metoprolol p.r.n. We prefer to not use metoprolol as much as we can considering his worsening chronic obstructive pulmonary disease. The patient is not complaining of any chest pain or palpitations. Because of the high heart rate we agreed to continue with anticoagulation, in this case Lovenox 1 mg/kg q12 hrs. 5. Chronic obstructive pulmonary disease exacerbation. Patient is on levalbuterol q.4 hours. As we mentioned before, we will continue with BiPAP machine. This chronic obstructive pulmonary disease has most likely been triggered by this pneumonia. We will continue with both antibiotics and breathing treatment. 6. Encephalopathy, multifactorial. Because of chronic alcoholism and acute infection, and also respiratory failure, will continue to follow this patient here in the intensive care unit. 7. Recurrent aspiration. Patient now is combative and agitated. Will use Ativan or Haldol to calm him down and after he is more calm, we will try to that exam later today. cc: Yasmany Cooper MD MTDD
[2016-12-01] MEDS: XOPENEX NEB INH SCH ×4 (11:02→22:46)
[2016-12-01] MEDS: LOVENOX SUBQ SCH ×2 (11:20→22:23)
[2016-12-01] MEDS: PROTONIX IV SCH (11:20)
[2016-12-01] MEDS ORDERED: VANCOMYCIN 2.5 GM in NS 500 ML IV ONE (12:00)
[2016-12-01 13:54] LABS: ALLEN TEST YES; BE 13.1 mmoll (-3.0-3.0); BLOOD TYPE ARTERIAL; DRAW SITE R RADIAL; METHB 1.3 % (0.0-1.5); O2(CT) 17.8 mL/dL (15.0-23.0); PO2(98.6) 62 mmHg (60-100); SAMPLE BLOOD; SAO2 95.7 % (95.0-100.0); THB 13.7 g/dL (11.5-17.4); pH(98.6) 7.45 (7.35-7.45)
[2016-12-01 13:56] LABS: MODALITY BI PAP; PCO2(98.6) 57 mmHg (35-45)
[2016-12-01] MEDS ORDERED: DIPRIVAN 1% ONE (14:32)
[2016-12-01] MEDS ORDERED: XYLOCAINE-MPF 2% ONE (14:34)
[2016-12-01] MEDS ORDERED: QUELICIN (DOSE) ONE (14:34)
[2016-12-01] MEDS: DIPRIVAN 1% 1,000 MG/100 ML BOTTLE IV SCH ×2 (14:35→19:12)
--- NOTE | 2016-12-01 14:43 | Diag Imaging Result Doc PS360 ---
EXAM: CHEST-PORTABLE HISTORY: ett placement TECHNIQUE: AP portable at 1430 COMMENT: There is pleural fluid bilaterally which may be loculated at least on the right side. There is dense opacification of the right lower lobe. There are also opacities in the left lower lobe which are not as well demonstrated as on the previous study of earlier today at 0920. Otherwise there is been no significant change in the appearance of the chest. There is an endotracheal tube with its tip slightly below the thoracic inlet and a PICC line on the left with its tip in the superior vena cava. IMPRESSION: Endotracheal tube in good position otherwise no significant change. Electronically signed by Shekhar Mcdonough 12/01/2016 2:41 PM
--- NOTE | 2016-12-01 15:29 | Diag Imaging Result Doc PS360 ---
EXAM: CHEST/ABD TUBE PLACEMENT HISTORY: ng tube placement TECHNIQUE: AP portable upright chest for NG tube placement COMMENT: The NG tube tip is in the fundus of the stomach. Endotracheal tube is just below the thoracic inlet. IMPRESSION: NG tube in the stomach. Electronically signed by Shekhar Mcdonough 12/01/2016 3:27 PM
--- NOTE | 2016-12-01 15:30 | PROGRESS NOTE ---
DATE: 12/01/2016 SUBJECTIVE: Patient continues with agitation and increased respiratory rate. He apparently has periods where he is more calm and without apparent respiratory distress. Chest x-ray reportedly appears worse. After Pulmonary consultation, intubation and mechanical ventilation is planned. Anesthesia is present and orchestrating this. OBJECTIVE: Vital signs: Blood pressure 143/89, heart rate ranging from 110-125 beats per minute with ECG monitor showing atrial fibrillation. Oxygen saturation 94% on BiPAP at 50% oxygen. Neck: There is no significant jugular venous distention. Chest: Auscultation of chest reveals a few scant rhonchi. Patient is breathing shallow and rapid. Cardiac: Reveals an irregular rate and rhythm without appreciable murmur or gallop. There is no evidence of peripheral edema. IMPRESSION: 1. Respiratory failure with underlying pneumonia and possible recurrent aspiration. 2. Persistent atrial fibrillation. Ventricular rate intermittently increased to a moderate degree. 3. Encephalopathy, multifactorial. RECOMMENDATIONS: 1. Continue Lovenox 80 mg subcutaneous q.12 hours as tolerated. 2. Continue intravenous Cardizem to control rate. 3. Supportive care and treatment of pneumonia as you are doing. cc: Skip Chiu MD
[2016-12-01] MEDS: D5W 1,000 ML IV SCH (15:49)
--- NOTE | 2016-12-01 15:54 | CONSULTATION ---
DATE OF CONSULTATION: 12/01/2016 REQUESTING PHYSICIAN: Dr. Kirby Calvert. REASON FOR CONSULTATION: Respiratory failure. HISTORY OF PRESENT ILLNESS: Mr. Castellanos is a 66-year-old white male, with severe COPD, by history, ongoing tobacco use and daily alcohol use, who was admitted to [facility], [place] on 11/21/2016 with right upper lobe infiltrate, COPD exacerbation and atrial fibrillation. His hospital course has been complicated by delirium, likely related to alcohol withdrawal, persistent atrial fibrillation and progressive pulmonary infiltrates. The patient has had coughing episodes with p.o. intake. The patient was transferred to this hospital yesterday evening. PAST MEDICAL HISTORY/PROBLEM LIST: 1. COPD. 2. Atrial fibrillation. 3. Hypertension. 4. Status post hernia repair. SOCIAL HISTORY: Ongoing tobacco and alcohol use. FAMILY HISTORY: Not immediately available. REVIEW OF SYSTEMS: Limited. The patient reports thirst and confusion. PHYSICAL EXAMINATION: General: Reveals an acutely-ill white male. He is currently on BiPAP. Vital Signs: Blood pressure 124/84, heart rate 122, respiratory rate 28 to 32, oxygen saturation 95%. HEENT: Pupils are equal and reactive. Oropharynx evaluation is limited with endotracheal tube in place. Neck: Supple. Chest: Reveals diffuse rhonchi bilaterally. Cardiac: Irregularly irregular, with increased rate. Abdomen: Obese. Extremities: Soft and without hepatosplenomegaly. Extremities: Reveal trace to 1+ ankle edema. Neurologic: The patient is awake and alert, and moves all extremities. He is confused. He is not oriented to place or time. LABORATORIES: Chest x-ray reveals increasing opacification in the right lower lobe, increasing opacification in the right middle lobe, with patchy infiltrates in the right upper and left lower lobe. Arterial blood gas this morning: PH 7.44, pCO2 of 56, PO2 of 118. Chemistry: Sodium 154, potassium 3.9, chloride 111, bicarbonate 39, BUN 33, creatinine 1.0. White blood count 9.28, hemoglobin 13.0, platelet count 289,000. IMPRESSION: A 66-year-old with: 1. Severe chronic obstructive pulmonary disease. 2. Alcohol use with delirium, likely related to alcohol use. 3. Hypernatremia. 4. Acute hypoxemic respiratory failure. 5. Woold-cz-liebste hypercapnic respiratory failure, with progressive pulmonary infiltrates. 6. The patient likely has had an aspiration pneumonia, and now has a hospital-acquired pneumonia. RECOMMENDATIONS: 1. Additional IV fluids for hypernatremia. 2. Rate control per Cardiology. 3. Continue broad-spectrum antibiotics for pneumonia. 4. Continue BiPAP at this juncture. The patient will likely require intubation and mechanical ventilation. 5. Continue n.p.o., except for occasional ice chips. 6. Long-term, the patient will benefit from counseling and cessation of alcohol and tobacco. cc: Irineo Alvarez MD
[2016-12-01 17:05] LABS: ALLEN TEST YES; BLOOD TYPE ARTERIAL; DRAW SITE R RADIAL; O2(CT) 18.1 mL/dL (15.0-23.0); PCO2(98.6) 49 mmHg (35-45); PO2(98.6) 79 mmHg (60-100); SAMPLE BLOOD; SAO2 98.2 % (95.0-100.0); SRATE 14 BPM; THB 13.4 g/dL (11.5-17.4); TVOL 600 mL; pH(98.6) 7.51 (7.35-7.45)
[2016-12-01 17:06] LABS: MODALITY VENTILATOR
[2016-12-01] MEDS: SEROQUEL PO SCH (22:05)
[2016-12-02] MEDS: D5W 1,000 ML IV SCH ×5 (00:23→19:40)
[2016-12-02] MEDS: DIPRIVAN 1% 1,000 MG/100 ML BOTTLE IV SCH ×6 (00:23→21:19)
[2016-12-02] MEDS: MAXIPIME 1 GM in NS 50 ML IV SCH (01:18)
[2016-12-02] MEDS: ZOSYN 3.375 GM in NS 50 ML IV SCH ×4 (02:32→19:23)
[2016-12-02] MEDS: CLINIMIX E 4.25%-5% SOLUTION 1,000 ML IV SCH (02:54)
[2016-12-02] MEDS: XOPENEX NEB INH SCH ×6 (03:23→23:15)
[2016-12-02] MEDS: CARDIZEM 100 MG/NS 100 MG/100 ML IVPB IV SCH ×2 (03:53→17:26)
[2016-12-02 04:20] LABS: ALLEN TEST YES; BE 10.9 mmoll (-3.0-3.0); BLOOD TYPE ARTERIAL; DRAW SITE R RADIAL; METHB 0.9 % (0.0-1.5); O2(CT) 23.4 mL/dL (15.0-23.0); PCO2(98.6) 46 mmHg (35-45); PO2(98.6) 82 mmHg (60-100); SAMPLE BLOOD; SAO2 98.2 % (95.0-100.0); SRATE 14 BPM; THB 17.4 g/dL (11.5-17.4); TVOL 600 mL
[2016-12-02 04:21] LABS: MODALITY VENTILATOR
[2016-12-02 04:28] LABS: BASO% 2.2 % (0.0-0.8); EOS# 0.39 X1000 (0.0-0.7); EOS% 4.5 % (0.0-10.0); HEMATOCRIT 39.7 % (42.0-52.0); IMM GRAN# 0.07 X1000 (0.0-0.04); IMM GRAN% 0.8 % (0.0-0.5); LYMPH# 1.01 X1000 (1.2-3.4); LYMPH% 11.7 % (20.5-51.1); MANUAL DIFF NEEDED? YES; MCH 35.9 PG (27-31); MCHC 32.7 g/dL (33-37); MCV 109.7 FL (81-99); MONO# 0.63 X1000 (0.11-0.59); MONO% 7.3 % (1.7-9.3); NEUT% 73.5 % (42.2-75.2); PLT 304 X1000 (130-400); RBC 3.62 XMIL (4.7-6.1)
[2016-12-02 04:43] LABS: AGAP 7; BUN 28 mg/dL (8-22); CHLORIDE 109 mmol/L (98-107); COSMO 306; POTASSIUM 3.2 mmol/L (3.5-5.1); SODIUM 150 mmol/L (136-145); TCO2 34 mmol/L (25-35)
[2016-12-02 04:55] LABS: EOS 2 % (1-10); LYMPHS 8 % (21-51); MONO 5 % (1-9)
[2016-12-02] MEDS: VANCOMYCIN 2 GM in NS 500 ML IV SCH (05:22)
--- NOTE | 2016-12-02 07:25 | Diag Imaging Result Doc PS360 ---
CHEST-PORTABLE - 12/02/2016 INDICATION: respiratory failure TECHNIQUE: COMPARISON: 12/01/2016 FINDINGS: Support lines and tubes are stable. Stable cardiomegaly. There is improvement in the right basilar rather large infiltrate. Otherwise stable mixed infiltrates bilaterally mostly in the lung bases but also in the midlungs. There are probably small pleural effusions. IMPRESSION: Significant improvement in the right basilar infiltrate. Electronically signed by Franco Bautista 12/02/2016 7:22 AM
[2016-12-02] MEDS ORDERED: D5W 1,000 ML IV SCH (08:05)
[2016-12-02] MEDS: LANOXIN IV SCH (08:46)
[2016-12-02] MEDS ORDERED: LASIX IV ONE (09:00)
[2016-12-02] MEDS ORDERED: POTASSIUM CHLORIDE 60 MEQ in NS 500 ML IV ONE (09:03)
[2016-12-02] MEDS: PROTONIX IV SCH (09:59)
[2016-12-02] MEDS: LOVENOX SUBQ SCH ×2 (10:00→21:19)
[2016-12-02] MEDS: SODIUM CHLORIDE 0.9% INJ SCH (10:00)
[2016-12-02] MEDS: DUONEB (A & A) INH PRN (10:50)
--- NOTE | 2016-12-02 12:53 | PROGRESS NOTE ---
DATE: 12/02/2016 SUBJECTIVE: Patient is sedated and intubated. Apparently he has been really restless all day long and he was he was desaturating, so finally the decision was made to intubate this patient. Since then, O2 saturations are much better. OBJECTIVE: Vital Signs: Temperature 97.8 degrees, heart rate 84, respiratory 14, blood pressure 135/74. O2 saturation 99% on mechanical ventilator with FiO2 of 50% General: This is a chronically ill-looking and disheveled 66-year-old male, lying in bed , in no acute distress. Sedated and intubated. HEENT: Head is normocephalic, atraumatic. Mucous membranes dry. Neck: Supple. No JVD noted. No carotid bruits. No lymphadenopathy. Cardiovascular: S1, S2 heard. Irregularly irregular. No murmurs, gallops, or rubs. Respiratory: Rhonchi and coarse breath sounds in both pulmonary packer mostly noted in both bases. Patient not using any accessory muscles or having work of breathing. Patient intubated. Abdomen: Soft. Bowel sounds present. No organomegaly. Extremities: No clubbing, cyanosis, there is some mild edema in both upper extremities. Neurological: Patient is sedated and intubated. LABORATORY DATA: White cell count 8.65, hemoglobin 13.0, hematocrit 39.7 platelets 304,000 with a ABG that shows pH 7.3, pCO2 of 46 and PO2 of 82. Sodium 150, potassium 3.2, chloride 109, creatinine 1.0, BUN 28. ASSESSMENT AND PLAN: 1. Acute respiratory failure on ventilator. Patient was started on BiPAP yesterday. He was very restless almost all day long yesterday. O2 saturations of course were dropping. It has been decided to intubate this patient. This morning the ABG shows a better gas exchange. Dr. Alvarez from Pulmonary has been consulted. Help appreciated. At this time, patient is on FiO2 of 50%. 2. Right upper lobe pneumonia. Patient currently is on vancomycin and also with Zosyn for gram negative and anaerobic coverage considering that this pneumonia is most likely secondary to aspiration. We have checked vitals from last night. The maximum temperature was 99.9 degrees this morning at 3 a.m. At this point, we are going to continue with the same management. The blood culture did not show anything and the sputum culture is not contributory. We will continue with the same management. 3. Hypernatremia. The sodium has improved a little bit. We have started this patient on D5W of 75 mL/h. We are going to increase it to 100 mL. We are going to check BMP tomorrow. 4. Atrial fibrillation with rapid ventricular response. The heart rate in this patient is better controlled. Currently he is on digoxin, Cardizem drip, and Toprol metoprolol IV p.r.n. The last medication has not been given to him yet. At this point, we will continue with the same management. Also because of this condition, Cardiology has decided to put this patient on anticoagulation in this case, Lovenox 1 mg/kg q.12 hours. We agreed with this treatment. 5. Chronic obstructive pulmonary disease exacerbation. Patient is on levalbuterol q.4 hours and also he is intubated. Physical examination is basically the same in comparing with yesterday. We will continue with the same management. 6. Encephalopathy, multifactorial. This patient is sedated. We will continue with propofol. 7. Recurrent aspiration. Patient is intubated now so when patient is extubated , we will consider trying to do the barium swallow exam that he was supposed to have done yesterday, but he was intubated. 8. Nutritional status. Patient has been started on Clinimix for last 2-3 days but considering that he is intubated now and also an NG tube has been placed, we are going to stop Clinimix and start NG tube feedings. cc: Yasmany Cooper MD MTDD
--- NOTE | 2016-12-02 15:02 | PROGRESS NOTE ---
DATE: 12/02/2016 CARDIOLOGY FOLLOW-UP NOTE: SUBJECTIVE: Patient continues on ventilator and is sedated. OBJECTIVE: Vital Signs: Blood pressure 120/84, heart rate 110 and irregular with ECG monitor showing atrial fibrillation. Oxygen saturation 94% with FiO2 of 50%. Neck: There is no significant jugular venous distention. Chest: Auscultation of the chest reveals coarse, diffusely diminished breath sounds bilaterally. Cardiac Exam: Reveals an irregular rate and rhythm without appreciable murmur or gallop. There is no evidence of peripheral edema. LABORATORY DATA: Includes white blood cell count 8.65, hematocrit 39.7, sodium 150, potassium 3.2, BUN 28, creatinine 1.0. IMPRESSION: 1. Respiratory failure, hypoxemic and hypercapnic. 2. Pneumonia in right upper lobe. 3. Recurrent aspiration likely for atrial fibrillation. Current heart rate reasonably controlled. 4. Hypernatremia. 5. Chronic obstructive pulmonary disease. 6. Encephalopathy. 7. Chronic alcoholism. RECOMMENDATIONS: 1. Continue supportive care and parental antibiotics. 2. Continue intravenous Cardizem for rate control supplemented with intravenous metoprolol as needed. 3. Continue Lovenox 80 mg subcutaneous q.12h as tolerated. cc: Skip Chiu MD
[2016-12-02] MEDS: SEROQUEL PO SCH (21:23)
[2016-12-03] MEDS: CARDIZEM 100 MG/NS 100 MG/100 ML IVPB IV SCH ×4 (00:21→19:28)
[2016-12-03] MEDS: D5W 1,000 ML IV SCH ×2 (00:21→10:51)
[2016-12-03] MEDS: VANCOMYCIN 2 GM in NS 500 ML IV SCH (00:22)
[2016-12-03] MEDS: DIPRIVAN 1% 1,000 MG/100 ML BOTTLE IV SCH ×5 (01:38→18:47)
[2016-12-03] MEDS: ZOSYN 3.375 GM in NS 50 ML IV SCH ×4 (02:34→19:26)
[2016-12-03] MEDS: XOPENEX NEB INH SCH ×6 (03:10→22:58)
[2016-12-03 05:28] LABS: BASO% 1.7 % (0.0-0.8); EOS# 0.42 X1000 (0.0-0.7); EOS% 4.7 % (0.0-10.0); HEMATOCRIT 41.1 % (42.0-52.0); HEMOGLOBIN 13.9 g/dL (14.0-18.0); IMM GRAN# 0.13 X1000 (0.0-0.04); IMM GRAN% 1.4 % (0.0-0.5); LYMPH# 1.26 X1000 (1.2-3.4); MANUAL DIFF NEEDED? YES; MCH 36.6 PG (27-31); MCHC 33.8 g/dL (33-37); MCV 108.2 FL (81-99); MONO% 8.9 % (1.7-9.3); MPV 11.2 FL (7.4-10.4); NEUT% 69.3 % (42.2-75.2); PLT 302 X1000 (130-400)
[2016-12-03 05:33] LABS: MAGNESIUM 1.7 mg/dL (1.5-2.7)
[2016-12-03 05:35] LABS: AGAP 12; BUN 27 mg/dL (8-22); CALCIUM 8.4 mg/dL (8.8-10.2); CHLORIDE 104 mmol/L (98-107); COSMO 297; POTASSIUM 3.6 mmol/L (3.5-5.1); SODIUM 146 mmol/L (136-145); TCO2 30 mmol/L (25-35)
[2016-12-03 06:04] LABS: BASO 1 % (0-1); EOS 3 % (1-10); LYMPHS 17 % (21-51); MONO 2 % (1-9)
--- NOTE | 2016-12-03 07:46 | Diag Imaging Result Doc PS360 ---
EXAM: CHEST-PORTABLE - 12/03/2016 HISTORY: respiratory failure TECHNIQUE: Portable chest 0500 COMPARISON: 12/02/2016 FINDINGS: Endotracheal tube, nasogastric tube, and PICC remain in place. The right appears of increased mildly. Infiltrate left appears stable. There is no pneumothorax identified. Heart size appears within normal limits. IMPRESSION: Mild increase in infiltrate on the right. Stable infiltrate on the left. Electronically signed by Juanjose Prince 12/03/2016 7:43 AM
[2016-12-03] MEDS: LOVENOX SUBQ SCH ×2 (09:23→22:24)
[2016-12-03] MEDS: PROTONIX IV SCH (09:23)
[2016-12-03] MEDS: LANOXIN IV SCH (09:23)
--- NOTE | 2016-12-03 10:23 | PROGRESS NOTE ---
DATE: 12/03/2016 SUBJECTIVE: Mr. Castellanos was admitted on 11/21/2016. He is a 66-year-old. No primary care physician. Presented to the emergency room with difficulty breathing. Found to have O2 saturation 86% on room air on arrival. His rates were 120s to 140s with atrial fib, rapid ventricular response at this time. He was given Lasix and some Ativan and admitted to the hospital on 11/16/2016 through 11/20/2016 with new onset of atrial fib, required Cardizem drip. This was weaned down and was transferred over to oral Cardizem. Seeing Dr. Alvarez from Cardiology at that time. He did remain in ICU during this hospitalization. The night of the , he became agitated getting out of bed, pacing, refusing to get back in bed and very agitated. Decided to leave AMA. At home he was found having trouble breathing. There was a question of aspiration. PAST MEDICAL HISTORY: Of COPD, hypertension, atrial fibrillation. OBJECTIVE: Temp 96.9 degrees, pulse 116, respirations 14, blood pressure 102/77. His pupils are 1 mm. I cannot tell if they are reactive. Urine output 4500 mL with good urine output. LAB/DIAGNOSTICS: White count 9020, hematocrit 41, platelet count 302,000. Chemistry: Sodium 146, potassium 3.6, chloride 104, bicarb 30, BUN 27, creatinine 1.2. Chest x-ray from this morning: Mild increased infiltrate in the right. Stable infiltrate on the left. ASSESSMENT AND PLAN: 1. Respiratory failure, hypoxemic hypercapnic pneumonia in the right upper lobe, possibly bilateral pneumonia. 2. Recurrent aspiration. I suspect this is an aspiration pneumonia. 3. Atrial fibrillation with rapid ventricular rate. Rate is controlled. Still in atrial fibrillation. 4. Chronic obstructive pulmonary disease exacerbation. 5. Metabolic encephalopathy. 6. Chronic alcoholism. Suspected going through delirium tremens. Finishing up and going through delirium toxins. He is still requiring minimal sedation but continue to improve his breathing some more. His sodium level/hypernatremia has come down. Creatinine 1.2. He is on digoxin IV Cardizem on vancomycin, Zosyn. cc: Eriberto Todd MD
[2016-12-03] MEDS: LASIX IV SCH ×3 (10:50→22:23)
--- NOTE | 2016-12-03 17:50 | PROGRESS NOTE ---
DATE: 12/03/2016 SUBJECTIVE: Patient continues on ventilator and sedated. OBJECTIVE: Vital Signs: Blood pressure 150/72, heart rate 98 and irregular with ECG monitor showing atrial fibrillation with controlled ventricular rate response. Oxygen saturation 98% with FiO2 of 55%. Neck: There is no significant jugular venous distention. Chest: Auscultation of the chest reveals increased breath sounds in the right lateral chest compared to the left. Cardiac Exam: Reveals an irregular rate and rhythm without appreciable murmur or gallop. There is no evidence of peripheral edema. LABORATORY DATA: Includes white blood cell count 9.02, hematocrit 41.1. BUN 27. Creatinine 1.2. IMPRESSION: 1. Respiratory failure, hypoxemic/hypercapnic with right-sided pneumonia and aspiration. 2. Right-sided pneumonia. 3. Recurrent aspiration. 4. Possible component of acute on chronic diastolic heart failure, difficult to exclude. It appears his oxygenation may have improved somewhat with recent diuresis. 5. Atrial fibrillation. Rate now controlled. 6. Chronic obstructive pulmonary disease. 7. Encephalopathy, multifactorial. 8. Chronic alcoholism. RECOMMENDATIONS: 1. Continue intravenous Cardizem for rate control with supplemental doses of intravenous metoprolol as needed. 2. Continue Lovenox 1 mg/kg subcu q.12 hours as tolerated. 3. Continue supportive care and treatment for acute lung issues. cc: Skip Chiu MD
[2016-12-03] MEDS: SEROQUEL PO SCH (22:19)
[2016-12-04] MEDS: DIPRIVAN 1% 1,000 MG/100 ML BOTTLE IV SCH ×6 (00:39→21:37)
[2016-12-04] MEDS: CARDIZEM 100 MG/NS 100 MG/100 ML IVPB IV SCH ×4 (01:38→21:40)
[2016-12-04] MEDS: D5W 1,000 ML IV SCH ×2 (01:41→14:22)
[2016-12-04] MEDS: ZOSYN 3.375 GM in NS 50 ML IV SCH ×4 (02:23→21:25)
[2016-12-04] MEDS: XOPENEX NEB INH SCH ×6 (03:11→22:53)
[2016-12-04 04:19] LABS: ALLEN TEST YES; BLOOD TYPE ARTERIAL; DRAW SITE R RADIAL; PO2(98.6) 96 mmHg (60-100); SAMPLE BLOOD; SAO2 98.8 % (95.0-100.0); SRATE 8 BPM; THB 14.7 g/dL (11.5-17.4); TVOL 600 mL; pH(98.6) 7.43 (7.35-7.45)
[2016-12-04 04:21] LABS: MODALITY VENTILATOR; PCO2(98.6) 55 mmHg (35-45)
[2016-12-04 05:03] LABS: EOS# 0.35 X1000 (0.0-0.7); EOS% 3.6 % (0.0-10.0); HEMATOCRIT 39.3 % (42.0-52.0); HEMOGLOBIN 13.5 g/dL (14.0-18.0); IMM GRAN# 0.15 X1000 (0.0-0.04); IMM GRAN% 1.5 % (0.0-0.5); LYMPH# 1.12 X1000 (1.2-3.4); LYMPH% 11.5 % (20.5-51.1); MANUAL DIFF NEEDED? NO; MCH 36.2 PG (27-31); MCHC 34.4 g/dL (33-37); MCV 105.4 FL (81-99); MONO# 0.92 X1000 (0.11-0.59); MONO% 9.4 % (1.7-9.3); PLT 302 X1000 (130-400); RBC 3.73 XMIL (4.7-6.1)
[2016-12-04 05:12] LABS: ALBUMIN 1.9 g/dL (3.5-5.0); CALCIUM 8.7 mg/dL (8.8-10.2); MAGNESIUM 1.7 mg/dL (1.5-2.7); POTASSIUM 3.5 mmol/L (3.5-5.1); TOTAL BILIRUBIN 0.43 mg/dL (0.20-1.00); TOTAL PROTEIN 5.9 g/dL (6.3-8.3)
--- NOTE | 2016-12-04 09:07 | Diag Imaging Result Doc PS360 ---
CHEST-PORTABLE - 12/04/2016 INDICATION: respiratory failure TECHNIQUE: COMPARISON: 12/03/2016 FINDINGS: Support lines and tubes are stable. There is little change in the layering hazy opacities bilaterally suggesting pleural effusions. Stable significant cardiomegaly and pulmonary vascular congestion. Stable hazy trace infiltrates centrally. No new infiltrates. IMPRESSION: No change from prior. Electronically signed by Franco Bautista 12/04/2016 9:05 AM
[2016-12-04] MEDS: ALBUMIN 25% IV SCH ×3 (09:08→21:24)
[2016-12-04] MEDS: LASIX IV SCH ×3 (09:09→21:24)
[2016-12-04] MEDS: LANOXIN IV SCH (09:10)
[2016-12-04] MEDS: LOVENOX SUBQ SCH ×2 (09:12→21:25)
[2016-12-04] MEDS: SODIUM CHLORIDE 0.9% INJ SCH (09:15)
[2016-12-04] MEDS: PROTONIX IV SCH (09:15)
--- NOTE | 2016-12-04 09:54 | PROGRESS NOTE ---
DATE: 12/04/2016 SUBJECTIVE: Mr. Castellanos still intubated, appears comfortable. He is under sedation. Remained afebrile. His sister was at the bedside. OBJECTIVE: Vital Signs: Temperature 98.0 degrees, pulse 94, respirations 14, blood pressure 107/66. Neck: No distended neck veins. CVP less than 6 cm. Lungs: Clear in all lung packer. Cardiovascular exam: Regular rhythm and rate without murmur or S3. Abdomen: Soft. Skin: Warm and dry. : Urine output over 7 L. LAB REVIEW: White count 9770, hematocrit 39, platelet count 302,000. Chemistry: Sodium 142, potassium 3.5, chloride 100, BUN 27, creatinine 1.4. Liver functions unremarkable. IMAGING REVIEW: The chest x-ray from this morning: His support lines and tubes appear stable. Little change in the hazy opacities bilaterally suggesting pleural effusion. He has significant cardiomegaly and pulmonary vascular congestion. Hazy trace infiltrates centrally, but really no change. ASSESSMENT AND PLAN: 1. Respiratory failure, hypoxemic, hypercapnic on his right side. He has really bilateral infiltrates and it is difficult to tell how much is infection and how much is pulmonary venous hypertension. Suspect aspiration pneumonia. Continue present antibiotics, ventilation support, bronchodilators. 2. Right-sided pneumonia and suspect he may have left side as well. 3. Recurrent aspiration under the influence of alcohol. 4. Chronic diastolic heart failure. 5. Atrial fibrillation, which is chronic. The rate is controlled. 6. Exacerbation of chronic obstructive pulmonary disease. 7. Encephalopathy, multifactorial, alcohol withdrawal. 8. Chronic alcoholism. Review of his lab: The creatinine is 1.4. We need to continue to follow that. CBC: Hematocrit is stable. Review of orders: I do not know that I see anything to change at this point. We will check a digoxin level in the morning. Follow his electrolytes and CBC. cc: Eriberto Todd MD
--- NOTE | 2016-12-04 12:09 | PROGRESS NOTE ---
DATE: 12/04/2016 CARDIOLOGY FOLLOWUP: SUBJECTIVE: Patient continues on ventilator, sedated with Diprivan. OBJECTIVE: Vital Signs: Blood pressure 162/79 with a heart rate of 84 and irregular with ECG monitor showing atrial fibrillation with controlled rate. Oxygen saturation 96% to 98% on FiO2 of 55%. There is no significant jugular venous distention. Chest: Auscultation of chest reveals increased breath sounds in the right lateral midlung region. Chest otherwise clear to auscultation. Cardiac: Reveals an irregular rate and rhythm without appreciable murmur or gallop. There is no evidence of peripheral edema. LABORATORY DATA: Includes sodium 142, potassium 3.5, BUN 27, and creatinine 1.4. IMPRESSION: 1. Respiratory failure, hypoxemic/hypercapnic. 2. Right-sided pneumonia. 3. Recurrent aspiration. 4. Possible component of [id number] diastolic heart failure. Difficult to exclude. 5. Atrial fibrillation, rate controlled. 6. Chronic obstructive pulmonary disease. 7. Encephalopathy, multifactorial. 8. Chronic alcoholism. RECOMMENDATIONS: 1. Continue intravenous Cardizem and supplemental doses of intravenous metoprolol. Discontinue digoxin for now. 2. Continue Lovenox 1 mg/kg q.12 hours as tolerated. 3. Cautious diuresis. Prerenal azotemia evident. cc: Skip Chiu MD
[2016-12-04] MEDS: SEROQUEL PO SCH (21:25)
[2016-12-05] MEDS: DIPRIVAN 1% 1,000 MG/100 ML BOTTLE IV SCH ×6 (01:36→21:16)
[2016-12-05] MEDS: ZOSYN 3.375 GM in NS 50 ML IV SCH ×4 (03:16→21:13)
[2016-12-05] MEDS: D5W 1,000 ML IV SCH (03:17)
[2016-12-05] MEDS: XOPENEX NEB INH SCH ×6 (03:26→23:09)
[2016-12-05 04:35] LABS: ALLEN TEST YES; BE 19.2 mmoll (-3.0-3.0); BLOOD TYPE ARTERIAL; DRAW SITE R RADIAL; MODALITY VENTILATOR; O2(CT) 15.2 mL/dL (15.0-23.0); PCO2(98.6) 63 mmHg (35-45); PO2(98.6) 78 mmHg (60-100); SAMPLE BLOOD; SAO2 97.6 % (95.0-100.0); SRATE 8 BPM; THB 11.3 g/dL (11.5-17.4); TVOL 600 mL; pH(98.6) 7.47 (7.35-7.45)
[2016-12-05] MEDS: CARDIZEM 100 MG/NS 100 MG/100 ML IVPB IV SCH ×4 (05:12→21:14)
[2016-12-05 05:27] LABS: BASO% 1.3 % (0.0-0.8); EOS# 0.33 X1000 (0.0-0.7); EOS% 3.8 % (0.0-10.0); HEMATOCRIT 39.9 % (42.0-52.0); HEMOGLOBIN 13.9 g/dL (14.0-18.0); IMM GRAN# 0.07 X1000 (0.0-0.04); IMM GRAN% 0.8 % (0.0-0.5); LYMPH# 1.47 X1000 (1.2-3.4); LYMPH% 16.9 % (20.5-51.1); MANUAL DIFF NEEDED? YES; MCH 36.7 PG (27-31); MCHC 34.8 g/dL (33-37); MCV 105.3 FL (81-99); MONO# 0.88 X1000 (0.11-0.59); MONO% 10.1 % (1.7-9.3); MPV 11.1 FL (7.4-10.4); NEUT% 67.1 % (42.2-75.2); PLT 312 X1000 (130-400); RBC 3.79 XMIL (4.7-6.1)
[2016-12-05 07:29] LABS: EOS 4 % (1-10); LYMPHS 12 % (21-51); MONO 4 % (1-9)
[2016-12-05] MEDS: LANOXIN IV SCH (08:01)
--- NOTE | 2016-12-05 08:03 | PROGRESS NOTE ---
DATE: 12/05/2016 SUBJECTIVE: Mr. Castellanos is intubated. His PO2 was a little lower today. He did seem to respond to the sedation break. OBJECTIVE: Vital Signs: He has remained afebrile. Temperature 97.7 degrees, pulse 72, respirations 9, blood pressure 113/68. Urine output 1200 mL. HEENT: Pupils are equal, round. Lungs: Clear in all lung packer. Cardiovascular: Regular rhythm and rate without murmur or S3. LAB: White count 8690, hematocrit 39, platelet count 312,000. Chemistry: Sodium 142, potassium 3.5, chloride 100, bicarb 38, BUN 27, creatinine 1.4 which is up a little bit. Creatinine was 1.0 Albumin 1.9. Chest x-ray this morning, still some increased venous vasculature diffusely through the lungs. Right lower lung hazy. ASSESSMENT AND PLAN: 1. Respiratory failure, hypoxemic, hypercapnic. Continued attempts to wean. PO2 is down a little bit today. 2. Right-sided pneumonia which appears to be improving. 3. Recurrent aspiration. 4. Possible acute on chronic diastolic dysfunction. He does have pulmonary venous hypertension. 5. Atrial fibrillation. Rate is controlled. We will decrease his Cardizem. Check digoxin level. 6. Chronic obstructive pulmonary disease. 7. Encephalopathy which is multifactorial. Right now he is sedated on the ventilator. 8. Chronic alcoholism, aware Review again of his lab. We will watch his creatinine. Reviewed his orders. Presently he is on D5 water at 75 mL an hour. I think we can switch him to a normal saline at a low rate. cc: Eriberto Todd MD
--- NOTE | 2016-12-05 08:49 | Diag Imaging Result Doc PS360 ---
CHEST-PORTABLE - 12/05/2016 INDICATION: respiratory failure TECHNIQUE: COMPARISON: 12/04/2016 FINDINGS: Support lines and tubes are stable. There is some worsening patchy infiltrate in the right upper lobe. There is slight improvement in the right basilar atelectasis, with better visualization of the right hemidiaphragm. Stable complete collapse of the left lower lobe. Stable cardiomegaly and pulmonary vascular congestion. There are probably pleural effusions. IMPRESSION: Mixed changes, probably mostly shifting atelectasis, with overall little change from prior. Electronically signed by Franco Bautista 12/05/2016 8:46 AM
[2016-12-05] MEDS: LOVENOX SUBQ SCH ×2 (09:06→21:13)
[2016-12-05] MEDS: SODIUM CHLORIDE 0.9% INJ SCH (09:16)
[2016-12-05] MEDS: PROTONIX IV SCH (09:16)
--- NOTE | 2016-12-05 12:05 | PROGRESS NOTE ---
DATE: 12/05/2016 SUBJECTIVE: The patient continues on ventilator and sedated. OBJECTIVE: Vital Signs: Blood pressure 122/80, heart rate 81 and irregular, with ECG monitor showing atrial fibrillation with controlled rate. Oxygen saturation 99% on FiO2 of 45%. There is no significant jugular venous distention. Chest: Auscultation of the chest reveals increased breath sounds in the right lateral chest. Chest otherwise clear. Cardiac Examination: Reveals an irregular rate and rhythm without appreciable murmur or gallop. There is no evidence of peripheral edema. LABORATORY DATA: Includes a white blood cell count 8.7, hematocrit 39.9. IMPRESSION: 1. Respiratory failure, hypoxemic/hypercapnic. 2. Right-sided pneumonia. 3. Recurrent aspiration. 4. Possible component of acute on chronic diastolic heart failure. 5. Atrial fibrillation, rate controlled. Duration not known. 6. Chronic obstructive pulmonary disease. 7. Encephalopathy, multifactorial. 8. Chronic alcoholism. RECOMMENDATIONS: 1. Continue current cardiovascular regimen with intravenous Cardizem on supplemental doses of intravenous metoprolol as needed for rate control. Discontinue digoxin, withdrawn. 2. Continue Lovenox 1 mg/kg subq. 12 hours as tolerated. 3. Patient's condition discussed with his family at bedside. cc: Skip Chiu MD
[2016-12-05] MEDS: CLINIMIX E 4.25%-5% SOLUTION 1,000 ML IV SCH (12:48)
[2016-12-05 12:52] LABS: ALBUMIN 3.1 g/dL (3.5-5.0); CALCIUM 8.5 mg/dL (8.8-10.2); POTASSIUM 3.5 mmol/L (3.5-5.1); TOTAL BILIRUBIN 0.69 mg/dL (0.20-1.00); TOTAL PROTEIN 6.2 g/dL (6.3-8.3)
[2016-12-05] MEDS: SEROQUEL PO SCH (21:13)
[2016-12-06] MEDS: DIPRIVAN 1% 1,000 MG/100 ML BOTTLE IV SCH ×6 (01:38→21:08)
[2016-12-06] MEDS: CLINIMIX E 4.25%-5% SOLUTION 1,000 ML IV SCH ×2 (01:39→15:00)
[2016-12-06] MEDS: ZOSYN 3.375 GM in NS 50 ML IV SCH ×4 (02:43→21:08)
[2016-12-06] MEDS: XOPENEX NEB INH SCH ×6 (03:12→22:30)
[2016-12-06 04:45] LABS: ALLEN TEST YES; BE 18.1 mmoll (-3.0-3.0); BLOOD TYPE ARTERIAL; DRAW SITE R RADIAL; O2(CT) 11.1 mL/dL (15.0-23.0); PO2(98.6) 64 mmHg (60-100); SAMPLE BLOOD; SAO2 95.6 % (95.0-100.0); SRATE 8 BPM; THB 8.4 g/dL (11.5-17.4); TVOL 600 mL; pH(98.6) 7.46 (7.35-7.45)
[2016-12-06 04:46] LABS: MODALITY VENTILATOR; PCO2(98.6) 62 mmHg (35-45)
[2016-12-06 06:59] LABS: MANUAL DIFF NEEDED? NO
[2016-12-06 07:07] LABS: BASO% 0.5 % (0.0-0.8); EOS# 0.25 X1000 (0.0-0.7); EOS% 2.3 % (0.0-10.0); HEMATOCRIT 42.7 % (42.0-52.0); IMM GRAN# 0.09 X1000 (0.0-0.04); IMM GRAN% 0.8 % (0.0-0.5); LYMPH# 1.09 X1000 (1.2-3.4); MCH 36.9 PG (27-31); MCHC 35.1 g/dL (33-37); MCV 104.9 FL (81-99); MONO# 0.96 X1000 (0.11-0.59); MONO% 8.8 % (1.7-9.3); NEUT% 77.6 % (42.2-75.2); PLT 266 X1000 (130-400); RBC 4.07 XMIL (4.7-6.1)
--- NOTE | 2016-12-06 07:21 | Diag Imaging Result Doc PS360 ---
EXAM: CHEST-PORTABLE HISTORY: respiratory failure TECHNIQUE: AP portable at 0500 COMMENT: There is an endotracheal tube with its tip slightly below the thoracic inlet. There is worsening pulmonary edema versus pneumonia in the right lower lobe. There may be pleural fluid bilaterally. There continues to be opacification of the left lower lobe. The more focal opacity which was visible on the previous study of 12/05/2016 in the right upper lobe has become less conspicuous IMPRESSION: Worsening pulmonary edema versus pneumonia in the right lower lobe. Electronically signed by Shekhar Mcdonough 12/06/2016 7:19 AM
[2016-12-06 07:39] LABS: AGAP 7; ALBUMIN 2.9 g/dL (3.5-5.0); ALKALINE PHOSPHATASE 38 U/L (32-122); BUN 26 mg/dL (8-22); CHLORIDE 98 mmol/L (98-107); COSMO 294; GOT 26 U/L (10-34); GPT 10 U/L (10-44); POTASSIUM 4.1 mmol/L (3.5-5.1); SODIUM 144 mmol/L (136-145); TCO2 39 mmol/L (25-35); TOTAL BILIRUBIN 0.61 mg/dL (0.20-1.00)
[2016-12-06] MEDS: LANOXIN IV SCH (09:14)
[2016-12-06] MEDS: LOVENOX SUBQ SCH ×2 (09:19→21:09)
[2016-12-06] MEDS: PROTONIX IV SCH (09:22)
--- NOTE | 2016-12-06 09:45 | PROGRESS NOTE ---
DATE: 12/06/2016 SUBJECTIVE: Mr. Castellanos is still on the ventilator and sedated. Appears comfortable. He does wake up when they stop sedation. Neurologically, appears to be intact. Moving all extremities. PHYSICAL EXAMINATION: Vital Signs: Today, temperature 97.1, pulse 72, respirations 9, blood pressure 160/85. HEENT: Pupils are equal and round. CVP less than 6 cm. Lungs: Clear in all lung packer. Cardiovascular Examination: Regular rhythm and rate without murmur or S3. Is and Os: Urine output is 4500 mL. LABORATORY DATA: White count 10,860, hematocrit is 42, platelet count 266,000. Chemistry: Sodium 144, potassium 4.1, chloride 98, BUN 26, creatinine 1.2. Magnesium 1.7. Albumin is 2.9. Chest x-ray, worsening pulmonary edema versus pneumonia, right lower lobe. ASSESSMENT AND PLAN: 1. Respiratory failure, hypoxemic, hypercapnic, right-sided pneumonia. Still on the ventilator and ventilator dependent. I suspect aspiration pneumonia. Continue present antibiotics and ventilator support, bronchodilators. 2. Acute on chronic diastolic heart failure with some pulmonary venous hypertension. 3. Atrial fibrillation, chronic, rate is controlled. 4. Chronic obstructive pulmonary disease. 5. Encephalopathy. Suspect alcohol withdrawal and even delirium tremens that he should be coming out of at this point. 6. History of chronic alcoholism. 7. Review of his lab, I do not see any change. Creatinine has come down to 1.2. In looking at his orders, his digoxin, he is getting 250 mg IV daily. He is on a Cardizem drip. I think he is down to 10 mL an hour. Metoprolol as needed 5 mg IV q.4 hours, Seroquel 25 mg at bedtime. He is on the Zosyn 3.375 mg q.6 hours. He is getting Clinimix. He is also attempting NG feeding. cc: Eriberto Todd MD
[2016-12-06] MEDS ORDERED: VANCOMYCIN 2 GM in NS 500 ML IV SCH ×4 (10:00)
[2016-12-06] MEDS: LASIX IV SCH ×2 (10:36→18:24)
[2016-12-06] MEDS: MUCOMYST 20% INH SCH ×2 (11:46→20:13)
--- NOTE | 2016-12-06 13:04 | EKG Report ---
Test Performed on : 12/06/2016 11:23:52 AM Test Reason : RHYTHM CHANGE Blood Pressure : / mmHG Vent. Rate : 068 BPM Atrial Rate : 068 BPM P-R Int : 162 ms QRS Dur : 122 ms QT Int : 358 ms P-R-T Axes : 074 065 244 degrees QTc Int : 380 ms Normal sinus rhythm. Nonspecific intraventricular conduction delay Nonspecific ST and T wave abnormality Abnormal ECG When compared with ECG of 26-NOV-2016 15:04, Sinus rhythm. has replaced Atrial fibrillation. Vent. rate has decreased BY 38 BPM Confirmed by Venu Carvajal MD ([id number]) on 12/06/2016 8:07:59 PM
--- NOTE | 2016-12-06 16:32 | PROGRESS NOTE ---
DATE: 12/06/2016 SUBJECTIVE: Patient continues on ventilator and is sedated. He has converted back to sinus rhythm. OBJECTIVE: Vital Signs: Blood pressure 143/79, heart rate 68 and regular, with ECG monitor showing sinus rhythm. Oxygen saturation 97% on FiO2 of 45%. There is no significant jugular venous distention. Chest: Auscultation of chest reveals increased breath sounds right lateral chest, but otherwise clear. Cardiac: Reveals a regular rate and rhythm without appreciable murmur or gallop. Extremities: There is no evidence of peripheral edema. LABORATORY DATA: Includes a white blood cell count of 10.9, hematocrit 42.7. BUN 26, creatinine 1.2. IMPRESSION: 1. Respiratory failure, hypoxemic/hypercapnia. 2. Right-sided pneumonia. 3. Recurrent aspiration. 4. Atrial fibrillation. The patient has converted to sinus rhythm. 5. Chronic obstructive pulmonary disease. 6. Encephalopathy. 7. Chronic alcoholism. RECOMMENDATIONS: 1. Discontinue intravenous Cardizem for now. 2. Continue Lovenox 1 mg/kg subcutaneously q.12 for now as tolerated. cc: Skip Chiu MD
[2016-12-06] MEDS: ATIVAN IV PRN (21:08)
[2016-12-06] MEDS: SEROQUEL PO SCH (21:09)
[2016-12-07] MEDS: DIPRIVAN 1% 1,000 MG/100 ML BOTTLE IV SCH ×6 (02:19→23:41)
[2016-12-07] MEDS: ZOSYN 3.375 GM in NS 50 ML IV SCH ×4 (02:19→20:38)
[2016-12-07] MEDS: LASIX IV SCH ×2 (02:19→20:00)
[2016-12-07] MEDS: XOPENEX NEB INH SCH ×6 (03:25→23:48)
[2016-12-07 04:41] LABS: ALLEN TEST YES; BE 17.5 mmoll (-3.0-3.0); BLOOD TYPE ARTERIAL; DRAW SITE R RADIAL; METHB 1.1 % (0.0-1.5); O2(CT) 20.7 mL/dL (15.0-23.0); PCO2(98.6) 30 mmHg (35-45); PO2(98.6) 182 mmHg (60-100); SAMPLE BLOOD; SAO2 100.6 % (95.0-100.0); SRATE 8 BPM; THB 14.9 g/dL (11.5-17.4); TVOL 600 mL
[2016-12-07 04:42] LABS: MODALITY VENTILATOR; pH(98.6) 7.71 (7.35-7.45)
[2016-12-07] MEDS: CLINIMIX E 4.25%-5% SOLUTION 1,000 ML IV SCH ×2 (04:58→18:23)
[2016-12-07 05:51] LABS: HEMOGLOBIN 14.1 g/dL (14.0-18.0); MCH 36.8 PG (27-31); MCHC 33.6 g/dL (33-37); MCV 109.7 FL (81-99); MPV 11.5 FL (7.4-10.4); RBC 3.83 XMIL (4.7-6.1)
[2016-12-07 06:05] LABS: AGAP 13; ALBUMIN 2.6 g/dL (3.5-5.0); ALKALINE PHOSPHATASE 40 U/L (32-122); BUN 34 mg/dL (8-22); CALCIUM 9.3 mg/dL (8.8-10.2); CHLORIDE 94 mmol/L (98-107); COSMO 293; GOT 27 U/L (10-34); GPT 11 U/L (10-44); POTASSIUM 3.8 mmol/L (3.5-5.1); SODIUM 142 mmol/L (136-145); TCO2 35 mmol/L (25-35); TOTAL BILIRUBIN 0.57 mg/dL (0.20-1.00); TOTAL PROTEIN 6.9 g/dL (6.3-8.3)
[2016-12-07 06:08] LABS: ALLEN TEST YES; BE 18.4 mmoll (-3.0-3.0); BLOOD TYPE ARTERIAL; DRAW SITE R RADIAL; METHB 1.1 % (0.0-1.5); O2(CT) 19.4 mL/dL (15.0-23.0); PO2(98.6) 73 mmHg (60-100); SAMPLE BLOOD; SRATE 8 BPM; THB 14.6 g/dL (11.5-17.4); TVOL 600 mL; pH(98.6) 7.46 (7.35-7.45)
[2016-12-07 06:13] LABS: MODALITY VENTILATOR; PCO2(98.6) 65 mmHg (35-45)
--- NOTE | 2016-12-07 07:39 | Diag Imaging Result Doc PS360 ---
EXAM: CHEST-PORTABLE HISTORY: respiratory failure TECHNIQUE: AP portable at 0500 COMMENT: There continues to be hazy interstitial and alveolar opacity over the right lower lobe as well as subpleural thickening or loculated fluid in the costophrenic angle. There is retrocardiac opacity in the left lower lobe presumably due to atelectasis or pneumonia. The endotracheal tube remains with its tip slightly below the thoracic inlet and there is an NG tube with its tip below the diaphragm. IMPRESSION: Right lower and middle lobe pneumonia, slightly improved since 12/06/2016. Left lower lobe atelectasis versus pneumonia. Electronically signed by Shekhar Mcdonough 12/07/2016 7:37 AM
[2016-12-07] MEDS: MUCOMYST 20% INH SCH ×2 (07:51→19:29)
--- NOTE | 2016-12-07 09:16 | PROGRESS NOTE ---
DATE: 12/07/2016 SUBJECTIVE: Mr. Castellanos is intubated and sedated. Appears comfortable. Remains afebrile. PHYSICAL EXAMINATION: Vital Signs: Temperature 97.7 degrees, pulse 83, respirations 10, blood pressure 162/96. Lungs: Anterolaterally are clear. Cardiovascular Examination: Regular rhythm and rate without murmur or S3. Abdomen: Soft. Skin: Is warm and dry. Is and Os: Urine output 6800 mL. LABORATORY DATA: Labs look good. White count 10,400, hematocrit 42, platelet count 222,000. Sodium 142, potassium 3.8, chloride 94, BUN 34, creatinine 1. Albumin 2.6. Chest x-ray from this morning which was a portable x-ray, continues to have hazy interstitial alveolar opacity over the right lower lobe as well as subpleural thickening, loculated fluid in the costovertebral angle. There is retrocardiac opacity in the left lower lobe, presumably due to atelectasis or pneumonia. Endotracheal tube remains with the tip slightly below the thoracic inlet. NG tube tip below the diaphragm. Right lower and middle lobe pneumonia slightly improved since 12/06/2016, left lower lobe atelectasis versus pneumonia. ASSESSMENT AND PLAN: 1. Respiratory failure, hypoxemia, hypercapnia, right-sided pneumonia. Still on the ventilator. Ventilator dependent. Suspect aspiration pneumonia. Continue present antibiotics, ventilatory support, and bronchodilators. Radiographically shows a little improvement. 2. Acute on chronic diastolic heart failure. Some pulmonary venous hypertension. Aware. Continue to diurese. He is diuresing well. 3. Atrial fibrillation, chronic, rate controlled. 4. Exacerbation of chronic obstructive pulmonary disease. 5. Encephalopathy, alcohol withdrawal, delirium tremens. We should be getting past delirium tremens at this point. He is sedated and on the ventilator. 6. Chronic alcoholism. 7. General weakness, deconditioning. Work on weaning him off the ventilator, his nutrition, and once we are able to wean him, we will work on his strength and mobility. cc: Eriberto Todd MD
[2016-12-07] MEDS: SODIUM CHLORIDE 0.9% INJ SCH (09:59)
[2016-12-07] MEDS: LOVENOX SUBQ SCH ×2 (09:59→20:41)
[2016-12-07] MEDS: PROTONIX IV SCH (09:59)
[2016-12-07] MEDS: LANOXIN IV SCH (09:59)
[2016-12-07] MEDS: ATIVAN IV PRN (20:21)
[2016-12-07] MEDS: SEROQUEL PO SCH (20:39)
[2016-12-08] MEDS: DIPRIVAN 1% 1,000 MG/100 ML BOTTLE IV SCH (01:12)
[2016-12-08] MEDS: ZOSYN 3.375 GM in NS 50 ML IV SCH ×4 (03:08→21:08)
[2016-12-08] MEDS: LASIX IV SCH (03:08)
[2016-12-08] MEDS: XOPENEX NEB INH SCH ×6 (03:52→22:59)
[2016-12-08 04:49] LABS: ALLEN TEST YES; BE 19.8 mmoll (-3.0-3.0); BLOOD TYPE ARTERIAL; DRAW SITE R RADIAL; O2(CT) 18.9 mL/dL (15.0-23.0); PO2(98.6) 90 mmHg (60-100); SAMPLE BLOOD; SAO2 98.3 % (95.0-100.0); SRATE 8 BPM; TVOL 600 mL; pH(98.6) 7.45 (7.35-7.45)
[2016-12-08 04:50] LABS: MODALITY VENTILATOR; PCO2(98.6) 69 mmHg (35-45)
[2016-12-08 05:14] LABS: HEMATOCRIT 41.5 % (42.0-52.0); HEMOGLOBIN 13.7 g/dL (14.0-18.0); MCH 35.2 PG (27-31); MCV 106.7 FL (81-99); MPV 10.7 FL (7.4-10.4); RBC 3.89 XMIL (4.7-6.1)
[2016-12-08 05:46] LABS: AGAP 14; ALBUMIN 2.8 g/dL (3.5-5.0); ALKALINE PHOSPHATASE 43 U/L (32-122); BUN 35 mg/dL (8-22); CALCIUM 9.2 mg/dL (8.8-10.2); CHLORIDE 92 mmol/L (98-107); COSMO 296; GOT 22 U/L (10-34); GPT 12 U/L (10-44); POTASSIUM 3.3 mmol/L (3.5-5.1); SODIUM 144 mmol/L (136-145); TCO2 38 mmol/L (25-35); TOTAL BILIRUBIN 0.56 mg/dL (0.20-1.00); TOTAL PROTEIN 7.3 g/dL (6.3-8.3)
[2016-12-08] MEDS: CLINIMIX E 4.25%-5% SOLUTION 1,000 ML IV SCH ×2 (06:35→21:08)
--- NOTE | 2016-12-08 07:29 | Diag Imaging Result Doc PS360 ---
CHEST-PORTABLE - 12/08/2016 INDICATION: respiratory failure TECHNIQUE: COMPARISON: 12/07/2016 FINDINGS: Support lines and tubes are stable. There is improvement in the right middle lobe opacity/atelectasis. Otherwise stable central interstitial infiltrates and pulmonary vascular congestion compatible with pulmonary edema. Stable small pleural effusions. No new infiltrates. IMPRESSION: Significant improvement particularly at the right middle lobe. Other findings are stable. Electronically signed by Franco Bautista 12/08/2016 7:26 AM
[2016-12-08] MEDS: MUCOMYST 20% INH SCH ×2 (07:42→19:34)
--- NOTE | 2016-12-08 08:35 | PROGRESS NOTE ---
DATE: 12/08/2016 SUBJECTIVE: Mr. Castellanos is on the ventilator still sedated. Air exchange and gas exchange marginally improved, still diuresing some fluid off. OBJECTIVE: Vital Signs: On exam, temperature 98.2 degrees, pulse 87, respirations 8, blood pressure 163/96. Neck: No distended neck veins. Lungs: Clear in all lung packer anterolateral. Cardiovascular exam: Regular rhythm and rate without murmur or S3. Abdomen: Soft. Skin: Warm and dry. : Urine output 3300. LABS: White count 11,170, hematocrit 41, platelet count 276,000. Chemistry: Sodium 144, potassium 3.3, chloride 92, bicarbonate 38, BUN 35, creatinine 1.2. Magnesium was 1.7. On 12/04/2016 albumin 2.8. X-RAYS: Chest x-ray from this morning: Significant improvement, particularly in the right middle lobe. The other findings appear stable. ASSESSMENT AND PLAN: 1. Respiratory failure, hypoxemia, hypercapnia, right-sided pneumonia, pulmonary venous hypertension. Continue to diuresis making some improvement radiographically. Suspect possible aspiration pneumonia. 2. Chronic diastolic heart failure, pulmonary venous hypertension. Continue diuresis. 3. Atrial fibrillation. Rate controlled. 4. Exacerbation of chronic obstructive pulmonary disease. 5. Encephalopathy, alcohol withdrawal, delirium tremens. We should be coming out of this pretty well in the time frame. 6. Chronic alcoholism. 7. General weakness, deconditioning. Will address what we can. 8. Nutrition: Continue nasogastric tube feeding, which he is tolerating. We are tolerating a high residual. He is on Clinimix I believe 75 mL an hour. Lanoxin 250 mcg intravenous daily. He is on his Lovenox 80 mg subcutaneous q. 12 hours and getting vancomycin and Zosyn (Zosyn at 3.375 mg g q. 6 hours and vancomycin 2 g q. 72 hours). I do not see any change. Continue to diurese. cc: Eriberto Todd MD
[2016-12-08] MEDS: LANOXIN IV SCH (09:52)
[2016-12-08] MEDS: LOVENOX SUBQ SCH (09:52)
[2016-12-08] MEDS: PROTONIX IV SCH (09:52)
[2016-12-08 11:20] LABS: ALLEN TEST YES; BE 19.4 mmoll (-3.0-3.0); BLOOD TYPE ARTERIAL; DRAW SITE R RADIAL; METHB 1.4 % (0.0-1.5); O2(CT) 20.1 mL/dL (15.0-23.0); PO2(98.6) 95 mmHg (60-100); SAMPLE BLOOD; SAO2 98.8 % (95.0-100.0); THB 14.9 g/dL (11.5-17.4); pH(98.6) 7.47 (7.35-7.45)
[2016-12-08 11:22] LABS: MODALITY VENTILATOR; PCO2(98.6) 65 mmHg (35-45)
--- NOTE | 2016-12-08 14:30 | PROGRESS NOTE ---
DATE: 12/08/2016 SUBJECTIVE: The patient is successfully extubated earlier today. He is drowsy, but response to questions. OBJECTIVE: Vital Signs: Blood pressure 176/99, heart rate 97 and regular with ECG monitor showing sinus rhythm. There is no significant jugular distention evident on auscultation. Chest: Reveals mildly increased breath sounds right lateral chest. Otherwise, chest clear to auscultation. Cardiac examination: Reveals a regular rate and rhythm without appreciable murmur or gallop. There is no evidence of peripheral edema. LABORATORY DATA: Includes a white blood cell count 11.17, hematocrit 41.5. BUN 35, creatinine 1.2. IMPRESSION: 1. Hypoxemic/hypercapnic respiratory failure. Patient now extubated following progressive improvement. 2. Right-sided pneumonia. 3. Recurrent aspiration. 4. Atrial fibrillation of unknown duration. Patient has converted to sinus rhythm. 5. Chronic obstructive pulmonary disease. 6. Encephalopathy. 7. Chronic alcoholism. RECOMMENDATIONS: Continue Lovenox 1 mg/kg subq.12 hours for now. Consider discontinuing and switching back to DVT prophylaxis dose in near future. cc: Skip Chiu MD
[2016-12-08] MEDS: LOPRESSOR IV PRN (14:33)
[2016-12-08] MEDS: VANCOMYCIN 2 GM in NS 500 ML IV SCH (14:33)
[2016-12-08] MEDS: APRESOLINE IV PRN (16:01)
[2016-12-08] MEDS: CATAPRES-TTS-2 TD SCH (16:42)
[2016-12-08] MEDS: SEROQUEL PO SCH (21:08)
[2016-12-09] MEDS: XOPENEX NEB INH SCH ×6 (03:21→22:56)
[2016-12-09] MEDS: ZOSYN 3.375 GM in NS 50 ML IV SCH ×4 (04:16→20:18)
[2016-12-09 04:21] LABS: BE 16.6 mmoll (-3.0-3.0); BLOOD TYPE ARTERIAL; METHB 1.4 % (0.0-1.5); PO2(98.6) 135 mmHg (60-100); SAMPLE BLOOD; SAO2 99.4 % (95.0-100.0); THB 17.6 g/dL (11.5-17.4); pH(98.6) 7.45 (7.35-7.45)
[2016-12-09 04:22] LABS: ALLEN TEST YES; DRAW SITE R RADIAL; MODALITY BI PAP; O2(CT) 24.1 mL/dL (15.0-23.0); PCO2(98.6) 65 mmHg (35-45)
[2016-12-09 05:13] LABS: HEMOGLOBIN 13.6 g/dL (14.0-18.0); MCH 37.4 PG (27-31); MCHC 34.9 g/dL (33-37); MCV 107.1 FL (81-99); MPV 10.6 FL (7.4-10.4); RBC 3.64 XMIL (4.7-6.1)
[2016-12-09 05:35] LABS: AGAP 9; ALBUMIN 2.8 g/dL (3.5-5.0); ALKALINE PHOSPHATASE 48 U/L (32-122); BUN 37 mg/dL (8-22); CALCIUM 10.2 mg/dL (8.8-10.2); CHLORIDE 95 mmol/L (98-107); COSMO 293; GOT 23 U/L (10-34); GPT 12 U/L (10-44); POTASSIUM 3.7 mmol/L (3.5-5.1); SODIUM 142 mmol/L (136-145); TCO2 38 mmol/L (25-35); TOTAL BILIRUBIN 0.99 mg/dL (0.20-1.00); TOTAL PROTEIN 7.3 g/dL (6.3-8.3)
--- NOTE | 2016-12-09 07:41 | Diag Imaging Result Doc PS360 ---
CHEST-PORTABLE - 12/09/2016 INDICATION: respiratory failure TECHNIQUE: COMPARISON: 12/08/2016 FINDINGS: The endotracheal tube is no longer present. Stable nasogastric tube and left PICC line in good position. There is slight improvement in aeration of the right lower lobe with better visualization of the right hemidiaphragm and decreased infiltrate. Stable retrocardiac consolidation and/or effusion. No new infiltrates. IMPRESSION: Endotracheal tube removed. Improved aeration of the right lung base. Electronically signed by Franco Bautista 12/09/2016 7:39 AM
[2016-12-09] MEDS: MUCOMYST 20% INH SCH ×2 (07:58→19:18)
--- NOTE | 2016-12-09 08:53 | PROGRESS NOTE ---
DATE: 12/09/2016 SUBJECTIVE: Mr. Castellanos was extubated yesterday. Doing well from that standpoint. Has an NG tube still in but is clamped off. He is awake and alert. He is oriented to person. He knows he is in the hospital. PHYSICAL EXAMINATION: Vital Signs: Temperature 98.1 degrees, pulse 101, respirations 18, blood pressure 142/85. HEENT: Pupils are equal and round. Lungs: Clear in all lung packer. Cardiovascular Examination: Regular rhythm and rate without murmur or S3. Abdomen: Soft. Skin: Warm and dry. Is and Os: Urine output over 4 L. LABORATORY DATA: White count 13,610, hematocrit 39, platelet count 197,000. Chemistry: Sodium 142, potassium 3.7, chloride 95, bicarb 38, BUN 37, creatinine 1.2. Chest x-ray from this morning, endotracheal tube removed, improved aeration in the right lung base. ASSESSMENT AND PLAN: 1. Hypoxemic, hypercapnic respiratory failure. Extubated. Doing better. 2. Bilateral pneumonia but right-sided predominant. Improved. Continue antibiotics. 3. Recurrent aspiration. 4. Atrial fibrillation of unknown duration. He has converted back to sinus rhythm. 5. Exacerbation of chronic obstructive pulmonary disease. 6. Chronic alcoholism. 7. He presented with encephalopathy. Still, I think a little blunting of the sensorium. I think we can probably pull the NG tube and encourage oral intake. See how he does swallowing. Increase his activity. Get physical therapy involved. We will need to address his Prather catheter too at some point. cc: Eriberto Todd MD
[2016-12-09] MEDS: SODIUM CHLORIDE 0.9% INJ SCH (09:31)
[2016-12-09] MEDS: LANOXIN IV SCH (09:31)
[2016-12-09] MEDS: PROTONIX IV SCH (09:31)
[2016-12-09] MEDS: CLINIMIX E 4.25%-5% SOLUTION 1,000 ML IV SCH (10:30)
[2016-12-09] MEDS ORDERED: LASIX IV ONE (20:00)
[2016-12-10] MEDS: CLINIMIX E 4.25%-5% SOLUTION 1,000 ML IV SCH ×2 (02:38→12:30)
[2016-12-10] MEDS: XOPENEX NEB INH SCH ×6 (03:08→23:10)
[2016-12-10] MEDS: ZOSYN 3.375 GM in NS 50 ML IV SCH ×4 (03:30→20:35)
[2016-12-10 04:43] LABS: ALLEN TEST YES; BE 20.1 mmoll (-3.0-3.0); BLOOD TYPE ARTERIAL; DRAW SITE R RADIAL; METHB 1.1 % (0.0-1.5); O2(CT) 18.2 mL/dL (15.0-23.0); PO2(98.6) 112 mmHg (60-100); SAMPLE BLOOD; SAO2 99.4 % (95.0-100.0); THB 13.3 g/dL (11.5-17.4); pH(98.6) 7.53 (7.35-7.45)
[2016-12-10 04:44] LABS: MODALITY BI PAP; PCO2(98.6) 55 mmHg (35-45)
[2016-12-10 05:01] LABS: HEMATOCRIT 39.8 % (42.0-52.0); HEMOGLOBIN 13.2 g/dL (14.0-18.0); MCH 36.5 PG (27-31); MCHC 33.2 g/dL (33-37); MCV 109.9 FL (81-99); MPV 10.3 FL (7.4-10.4); RBC 3.62 XMIL (4.7-6.1)
[2016-12-10 05:08] LABS: AGAP 13; ALBUMIN 2.9 g/dL (3.5-5.0); ALKALINE PHOSPHATASE 45 U/L (32-122); BUN 41 mg/dL (8-22); CALCIUM 10.4 mg/dL (8.8-10.2); CHLORIDE 98 mmol/L (98-107); COSMO 306; GOT 19 U/L (10-34); GPT 12 U/L (10-44); POTASSIUM 3.5 mmol/L (3.5-5.1); SODIUM 148 mmol/L (136-145); TCO2 37 mmol/L (25-35)
--- NOTE | 2016-12-10 07:29 | Diag Imaging Result Doc PS360 ---
EXAM: CHEST-PORTABLE HISTORY: respiratory failure TECHNIQUE: Portable AP COMPARISON: 12/09/2016 FINDINGS: No change in the left-sided PICC line or in the nasogastric tube. The lungs are well expanded. The heart is not enlarged. Mild increased interstitial markings/pulmonary edema persist. The overall appearance is quite similar to that of the prior exam. IMPRESSION: No definite interval improvement. Electronically signed by James Grossman 12/10/2016 7:27 AM
[2016-12-10] MEDS: MUCOMYST 20% INH SCH ×2 (07:48→19:20)
[2016-12-10] MEDS ORDERED: LASIX IV ONE (09:01)
[2016-12-10] MEDS: PROTONIX IV SCH (09:18)
[2016-12-10] MEDS: SODIUM CHLORIDE 0.9% INJ SCH (09:18)
[2016-12-10] MEDS: LANOXIN IV SCH (09:19)
--- NOTE | 2016-12-10 09:26 | PROGRESS NOTE ---
DATE: 12/10/2016 SUBJECTIVE: Mr. Castellanos is awake and alert. Still has NG tube in. Still has Prather catheter in. He feels a little stronger. He was able to lift his arms a little bit. Breathing has improved. Denies pain at this point. OBJECTIVE: Vital signs: Temp 98.3 degrees, pulse 93, respirations 27, blood pressure 166/101. Lungs: Are clear in all lung packer. Cardiovascular: Regular rhythm and rate without murmur or S3. Abdomen: Soft. Skin: Warm and dry. Note, blood pressures have been running 142-173/85-101. DIAGNOSTIC DATA: Lab reviewed from the 14th yesterday, white count was 13,850, hematocrit was 39 and stable, platelet count 227,000. Sodium 148, potassium 3.5, chloride 98, BUN 41, creatinine 1.1. His blood gases yesterday reviewed. pCO2 has come down. Chest x-ray: No definite interval improvement on yesterday's x-ray, but clinically improving. ASSESSMENT AND PLAN: 1. Hypoxemic hypercapnic respiratory failure, extubated doing better. 2. Bilateral pneumonia, but right-sided predominant, improved. 3. Recurrent aspiration. 4. Atrial fibrillation of unknown duration, converted back to sinus rhythm. 5. Exacerbation of chronic obstructive pulmonary disease. 6. Chronic alcoholism. 7. Encephalopathy. 8. Alcohol withdrawals, which I think is coming out of or a just general weakness, deconditioning, myopathy from laying in the bed. Continue physical therapy. Making progress. I would like to get his NG tube out. I do not think we are ready to get the Prather catheter yet. MEDICATIONS: I have reviewed his medications: Acetylsytoline 20% gets this b.i.d., albuterol/ipratropium inhaler q.2 hours, amino acids or ClindaMax he is getting at 75 mL an hour, clonidine patch 1 q.7. days, digoxin 250 mg IV daily. He Apresoline 10 mg IV q.4 hours. He is on Xopenex q.4 hours, Imodium 2 mg p.r.n. Gets Ativan as needed, IV 1 mg, Lopressor 5 mg IV q.4 hours p.r.n., Protonix 40 mg IV q.24 hours. He is on vancomycin. He is on Zosyn 3.375 mg IV q.6. I think getting Lasix 40 mg IV, got 1 dose yesterday, gave him another dose today. Check electrolytes again in the morning. Check his magnesium as well. cc: Eriberto Todd MD
[2016-12-10] MEDS: VANCOMYCIN 2 GM in NS 500 ML IV SCH (13:31)
--- NOTE | 2016-12-10 16:32 | PROGRESS NOTE ---
DATE: 12/10/2016 CARDIOLOGY FOLLOW-UP NOTE: SUBJECTIVE: Patient continues off ventilator. He denies chest discomfort or dyspnea on supplemental oxygen. He has considerable chest congestion requiring frequent suctioning. OBJECTIVE: Vital Signs: Blood pressure 174/108, heart rate 99 and regular, with ECG monitor showing sinus rhythm. Oxygen saturation 100%. Neck: Supple, without jugular venous distention. Chest: Auscultation of chest reveals scattered rhonchi. Cardiac exam: A regular rate and rhythm without appreciable murmur or gallop. There is no evidence of peripheral edema. IMPRESSION: 1. Recent hypoxemic/hypercapnic respiratory failure. Patient extubated and showing gradual improvement. 2. Bilateral pneumonia predominantly right-sided, improving. 3. Recurrent aspiration. 4. Atrial fibrillation. Patient has converted back to sinus rhythm. 5. Chronic obstructive pulmonary disease with exacerbation. 6. Chronic alcoholism. 7. Encephalopathy. RECOMMENDATIONS: 1. Reasonable to discontinue digoxin. Continue Lovenox at DVT prophylaxis dose. 2. Consider increase in antihypertensive regimen but will defer this to primary team. 3. Given persistent maintenance of sinus rhythm, will see further on as-needed basis. cc: Skip Chiu MD
[2016-12-10] MEDS: APRESOLINE IV PRN (18:49)
[2016-12-10] MEDS: PRINIVIL PO SCH (20:29)
[2016-12-11] MEDS: CLINIMIX E 4.25%-5% SOLUTION 1,000 ML IV SCH ×2 (01:06→14:52)
[2016-12-11] MEDS: ZOSYN 3.375 GM in NS 50 ML IV SCH ×4 (02:41→22:30)
[2016-12-11] MEDS: XOPENEX NEB INH SCH ×6 (03:30→23:25)
[2016-12-11] MEDS: HALDOL IV PRN ×2 (03:37→22:33)
[2016-12-11 04:28] LABS: ALLEN TEST YES; BE 16.6 mmoll (-3.0-3.0); BLOOD TYPE ARTERIAL; DRAW SITE R RADIAL; METHB 1.3 % (0.0-1.5); O2(CT) 25.4 mL/dL (15.0-23.0); PO2(98.6) 96 mmHg (60-100); SAMPLE BLOOD; SAO2 98.6 % (95.0-100.0); THB 18.9 g/dL (11.5-17.4); pH(98.6) 7.49 (7.35-7.45)
[2016-12-11 04:29] LABS: MODALITY CANNULA; PCO2(98.6) 58 mmHg (35-45)
[2016-12-11 04:46] LABS: AGAP 14; ALBUMIN 2.7 g/dL (3.5-5.0); ALKALINE PHOSPHATASE 44 U/L (32-122); BUN 42 mg/dL (8-22); CALCIUM 10.1 mg/dL (8.8-10.2); CHLORIDE 102 mmol/L (98-107); COSMO 314; GOT 31 U/L (10-34); GPT 17 U/L (10-44); POTASSIUM 3.1 mmol/L (3.5-5.1); SODIUM 152 mmol/L (136-145); TCO2 36 mmol/L (25-35); TOTAL BILIRUBIN 1.62 mg/dL (0.20-1.00); TOTAL PROTEIN 7.2 g/dL (6.3-8.3)
[2016-12-11 05:45] LABS: HEMATOCRIT 40.1 % (42.0-52.0); HEMOGLOBIN 13.1 g/dL (14.0-18.0); MCH 36.1 PG (27-31); MCHC 32.7 g/dL (33-37); MCV 110.5 FL (81-99); MPV 10.5 FL (7.4-10.4); RBC 3.63 XMIL (4.7-6.1)
--- NOTE | 2016-12-11 07:17 | Diag Imaging Result Doc PS360 ---
EXAM: CHEST-PORTABLE HISTORY: respiratory failure TECHNIQUE: Erect AP portable at 0525 COMMENT: Compared to the previous study of 12/10/2016 the pulmonary edema which was present previously has improved. There continues to be some focal opacity in the right upper lobe. IMPRESSION: Improved pulmonary edema. Questionable pneumonia right upper lobe. Electronically signed by Shekhar Mcdonough 12/11/2016 7:15 AM
[2016-12-11] MEDS: MUCOMYST 20% INH SCH ×2 (07:47→19:52)
[2016-12-11] MEDS ORDERED: POTASSIUM CHLORIDE 40 MEQ/SWI 40 MEQ/100 ML IVPB IV ONE (08:52)
[2016-12-11] MEDS ORDERED: MAGNESIUM SULFATE 2 GM/S.W.I. 2 GM/50 ML IVPB IV ONE (08:53)
[2016-12-11] MEDS: PRINIVIL PO SCH ×3 (09:04→22:33)
[2016-12-11] MEDS: SODIUM CHLORIDE 0.9% INJ SCH (09:04)
[2016-12-11] MEDS: PROTONIX IV SCH ×2 (09:04→09:18)
--- NOTE | 2016-12-11 09:06 | PROGRESS NOTE ---
DATE: 12/11/2016 He is awake. He is oriented to person. I had to remind him he is at [facility]. His voice is getting a little stronger. He seems to be able to be cooperative. He is very weak but I see some improvement in his strength as well. OBJECTIVE: Temp 98 degrees, pulse 97, respirations 22, blood pressure 147/102.HEENT: Pupils are equal, round. Lungs: Are clear in all lung packer. Cardiovascular: Regular rhythm and rate without murmur or S3. Abdomen: Soft. Skin: Is warm and dry. Urine output is over 4 L. LAB: White count 43004, hematocrit 40, platelet count 233,000. Sodium 152, potassium 3.1, chloride 102, BUN 42, creatinine 1.01. Albumin 2.7. Chest x-ray improved pulmonary edema. Questionable pneumonia right upper lobe which appears to be improving as well. ASSESSMENT AND PLAN: 1. Recent hypoxemic hypercapnic respiratory failure. Extubated off the ventilator. Underlying pneumonia, underlying COPD, improving. Air exchange and gas exchange improving. Radiographically are improving too. 2. Bilateral pneumonia predominantly right side improving. 3. Recurrent aspiration suspected. 4. Atrial fibrillation. The patient is back in sinus rhythm. 5. Chronic obstructive pulmonary disease exacerbation. 6. Chronic alcohol. 7. Encephalopathy. I think he has gone through alcohol withdrawals, I think improving. In looking over the lab today, we will supplement some potassium. Noted that albumin is 2.7. Hematocrit stable. Continue physical therapy. Prather catheter is still in place. The NG tube was pulled out. cc: Eriberto Todd MD
[2016-12-11] MEDS: ATIVAN IV PRN (22:39)
[2016-12-12] MEDS: ATIVAN IV PRN ×3 (01:03→22:10)
[2016-12-12] MEDS: HALDOL IV PRN (02:18)
[2016-12-12] MEDS: ZOSYN 3.375 GM in NS 50 ML IV SCH ×4 (02:45→21:54)
[2016-12-12] MEDS: XOPENEX NEB INH SCH ×6 (04:19→23:40)
[2016-12-12] MEDS: CLINIMIX E 4.25%-5% SOLUTION 1,000 ML IV SCH ×2 (04:26→18:02)
[2016-12-12] MEDS: APRESOLINE IV PRN (04:50)
[2016-12-12 07:18] LABS: HEMATOCRIT 40.9 % (42.0-52.0); HEMOGLOBIN 13.8 g/dL (14.0-18.0); MCH 35.8 PG (27-31); MCHC 33.7 g/dL (33-37); MPV 10.3 FL (7.4-10.4); RBC 3.86 XMIL (4.7-6.1)
[2016-12-12 07:36] LABS: AGAP 12; ALBUMIN 2.9 g/dL (3.5-5.0); ALKALINE PHOSPHATASE 53 U/L (32-122); BUN 49 mg/dL (8-22); CALCIUM 9.9 mg/dL (8.8-10.2); CHLORIDE 108 mmol/L (98-107); COSMO 321; GOT 38 U/L (10-34); GPT 24 U/L (10-44); MAGNESIUM 2.3 mg/dL (1.5-2.7); POTASSIUM 3.2 mmol/L (3.5-5.1); SODIUM 155 mmol/L (136-145); TCO2 35 mmol/L (25-35); TOTAL BILIRUBIN 1.93 mg/dL (0.20-1.00)
[2016-12-12] MEDS: MUCOMYST 20% INH SCH ×2 (07:51→19:10)
[2016-12-12] MEDS: PROTONIX IV SCH (09:51)
[2016-12-12] MEDS: SODIUM CHLORIDE 0.9% INJ SCH (09:51)
[2016-12-12] MEDS: PRINIVIL PO SCH ×2 (09:52→21:56)
[2016-12-12] MEDS ORDERED: POTASSIUM CHLORIDE 40 MEQ/SWI 40 MEQ/100 ML IVPB IV ONE (10:08)
--- NOTE | 2016-12-12 10:35 | PROGRESS NOTE ---
DATE: 12/12/2016 SUBJECTIVE: Mr. Castellanos still has a good amount of confusion. He does not like the face mask on. His breathing is better. He is still getting his breathing treatment. I think he knows a person; sometimes he does not remember where he is and does not know the date or time. OBJECTIVE: Temperature 98.3 degrees, pulse 106, respirations 14, blood pressure 146/74. Pupils are equal and round. CVP less than 6 cm. Lungs are clear in all lung packer. Cardiovascular: Regular rhythm and rate without murmur or S3. Abdomen is soft. Skin is warm and dry. Urine output 3000 mL. Lab from 12/12/2016: White count 13,990. Hematocrit is 40. Platelet count 246,000. Chemistry: Sodium 155, potassium 3.2, chloride 102, bicarb 35. BUN 49, creatinine 1.1. Chest x-ray from yesterday: Improved pulmonary edema. Questionable pneumonia in the right upper lobe which I think is improving. Infiltrate is improving. ASSESSMENT AND PLAN: 1. Recent hypoxemic hypercapnic respiratory failure extubated from the ventilator. This seems to be making progress. Exacerbation of chronic obstructive pulmonary disease. His air and gas exchange are radiographically improving. Continue present measures including antibiotic. 2. Bilateral pneumonia which is improving. Continue IV antibiotic. 3. Recurrent aspiration suspected. 4. Atrial fibrillation; back in sinus rhythm. Rate is controlled. 5. Chronic obstructive pulmonary disease exacerbation as above. 6. Chronic alcohol. I think he is through withdrawal and delirium tremens but I am not sure what his baseline cognitive status is going to be. 7. Encephalopathy with still some delirium. Looking over his orders, I do not see any change. We are supplementing his magnesium and potassium. We will give him some more potassium today and his magnesium is okay. cc: Eriberto Todd MD
[2016-12-13] MEDS: ZOSYN 3.375 GM in NS 50 ML IV SCH ×4 (03:30→20:16)
[2016-12-13] MEDS: XOPENEX NEB INH SCH ×6 (03:50→23:37)
[2016-12-13] MEDS: CLINIMIX E 4.25%-5% SOLUTION 1,000 ML IV SCH (06:45)
[2016-12-13 07:03] LABS: HEMATOCRIT 39.6 % (42.0-52.0); HEMOGLOBIN 13.3 g/dL (14.0-18.0); MCH 35.8 PG (27-31); MCHC 33.6 g/dL (33-37); MCV 106.5 FL (81-99); MPV 10.3 FL (7.4-10.4); RBC 3.72 XMIL (4.7-6.1)
[2016-12-13 07:51] LABS: AGAP 12; ALKALINE PHOSPHATASE 50 U/L (32-122); BUN 58 mg/dL (8-22); CALCIUM 10.8 mg/dL (8.8-10.2); CHLORIDE 116 mmol/L (98-107); COSMO 336; GOT 38 U/L (10-34); GPT 25 U/L (10-44); POTASSIUM 3.7 mmol/L (3.5-5.1); TCO2 33 mmol/L (25-35); TOTAL BILIRUBIN 2.19 mg/dL (0.20-1.00); TOTAL PROTEIN 8.3 g/dL (6.3-8.3)
[2016-12-13 07:54] LABS: SODIUM 159 mmol/L (136-145)
[2016-12-13] MEDS: MUCOMYST 20% INH SCH ×2 (07:54→20:10)
[2016-12-13] MEDS: PROTONIX IV SCH (09:27)
[2016-12-13] MEDS: SODIUM CHLORIDE 0.9% INJ SCH (09:27)
[2016-12-13] MEDS: PRINIVIL PO SCH ×2 (09:28→20:15)
[2016-12-13] MEDS: APRESOLINE IV PRN ×2 (09:28→20:16)
[2016-12-13] MEDS ORDERED: 1/2 NS 1,000 ML IV SCH (13:50)
--- NOTE | 2016-12-13 14:11 | PROGRESS NOTE ---
DATE: 12/13/2016 SUBJECTIVE: Mr. Castellanos is awake. He is oriented to person, knows he is in the hospital, does not want his Prather catheter taken out yet. There still is some confusion somewhat hard to understand. OBJECTIVE: Vital signs: Temperature 98.2 degrees, pulse 79, respirations 22, blood pressure 186/91, his range has been 144-186 over 68-95. Lungs: Are clear in all lung packer. Cardiovascular: Regular rhythm and rate without murmur or S3. Abdomen: Soft. Skin: Is warm and dry. Urine output is 3800 mL. LAB: Reviewed from today white count 13,910, hematocrit 39, platelet count 270,000. Chemistries sodium 159, potassium 3.9, chloride 115, BUN 58, creatinine 1.2. ASSESSMENT AND PLAN: 1. Recent hypoxemic hypercapnic respiratory failure required ventilator extubated doing better. Suspect he went through alcohol withdrawal during this time as well. 2. Alcohol withdrawal, delirium which he seems to be past. 3. Bilateral pneumonia improving. Continue present antibiotics. 4. Recurrent aspiration suspected. 5. Atrial fibrillation now in sinus rhythm rate controlled. 6. Chronic obstructive pulmonary disease exacerbation. 7. Chronic alcohol. 8. Encephalopathy which has improved. Continue work on his strength and I think we are approaching close to being discharged, I am going discontinue his Prather catheter in the morning. Continue physical therapy. Social service involved for discharge planning. I think he used to live alone, I am going to discontinue his Clinamax, I am going give him normal saline and run that in at 85 mL an hour, I will give him 1/2 normal saline given his hypernatremia. cc: Eriberto Todd MD
[2016-12-13] MEDS: D5W 1,000 ML IV SCH (18:44)
[2016-12-13] MEDS: ATIVAN IV PRN (22:45)
[2016-12-14] MEDS: XOPENEX NEB INH SCH ×6 (02:37→22:34)
[2016-12-14] MEDS: ZOSYN 3.375 GM in NS 50 ML IV SCH ×4 (02:59→20:53)
--- NOTE | 2016-12-14 07:10 | Diag Imaging Result Doc PS360 ---
EXAM: CHEST-PORTABLE HISTORY: abnormal exam TECHNIQUE: Portable AP COMPARISON: 12/11/2016 FINDINGS: No change in the left-sided PICC line. The lungs are well expanded. Heart is not enlarged. Minimal vascular distention similar to the prior study. No consolidation. No pleural effusions identified. IMPRESSION: Stable chest Electronically signed by James Grossman 12/14/2016 7:08 AM
[2016-12-14 07:33] LABS: CALCIUM 10.3 mg/dL (8.8-10.2); POTASSIUM 3.6 mmol/L (3.5-5.1); TOTAL BILIRUBIN 1.96 mg/dL (0.20-1.00)
[2016-12-14 07:36] LABS: HEMATOCRIT 41.8 % (42.0-52.0); HEMOGLOBIN 13.8 g/dL (14.0-18.0); MCH 36.9 PG (27-31); MCV 111.8 FL (81-99); MPV 10.7 FL (7.4-10.4); RBC 3.74 XMIL (4.7-6.1)
[2016-12-14] MEDS: MUCOMYST 20% INH SCH ×2 (07:51→19:36)
--- NOTE | 2016-12-14 08:41 | Diag Imaging Result Doc PS360 ---
EXAM: CHEST-PORTABLE HISTORY: SOB/Fluid overload TECHNIQUE: AP portable at 0835 COMMENT: There is some questionable alveolar opacity in the medial lower right lower lobe which was not present on 12/14/2016 at 0555. Otherwise, there has been no significant change considering differences in technique. IMPRESSION: Questionable atelectasis or pneumonia right lower lobe. Electronically signed by Shekhar Mcdonough 12/14/2016 8:39 AM
[2016-12-14 08:52] LABS: ALLEN TEST YES; BE 7.2 mmoll (-3.0-3.0); BLOOD TYPE ARTERIAL; DRAW SITE R RADIAL; METHB 1.1 % (0.0-1.5); PO2(98.6) 95 mmHg (60-100); SAMPLE BLOOD; SAO2 98.8 % (95.0-100.0); THB 17.2 g/dL (11.5-17.4); pH(98.6) 7.38 (7.35-7.45)
[2016-12-14 08:56] LABS: MODALITY CANNULA; PCO2(98.6) 59 mmHg (35-45)
--- NOTE | 2016-12-14 10:05 | Diag Imaging Result Doc PS360 ---
EXAM: CT THORAX W/O CONTRAST HISTORY: SOB TECHNIQUE: CT chest without contrast. Dose reduction protocol. COMPARISON: None. FINDINGS: There is a tiny right-sided pleural effusion measuring only several millimeters. No left-sided pleural effusion. Heart is borderline mildly prominent. There is a small pericardial effusion measuring 8 mm posteriorly. No enlarged mediastinal lymph nodes. There are several calcified subcarinal and left hilar lymph nodes with scattered granuloma. There is a 2.2 cm irregular nodule within the right upper lobe laterally with small central cavitation. There is irregular opacities in the left lower lobe which have a nodular appearance but may simply be atelectasis or nodular infiltrates. Atelectasis is also found posteriorly in the right lower lobe. Small nodular, almost groundglass, infiltrates are found scattered in the lungs. There appears to be debris within the right lower lobe pulmonary bronchus. IMPRESSION: 1.Right upper lobe nodule with central cavitation. Most likely diagnosis includes infection or malignancy. 2.Tiny right pleural effusion with a small pericardial effusion 3.Basilar atelectasis with small scattered nodular infiltrates 4.Debris within the right lower lobe pulmonary bronchus which may simply be mucus. Electronically signed by James Grossman 12/14/2016 10:02 AM
[2016-12-14] MEDS: D5W 1,000 ML IV SCH ×4 (11:17→11:38)
[2016-12-14] MEDS: PROTONIX IV SCH (11:35)
--- NOTE | 2016-12-14 11:47 | PROGRESS NOTE ---
DATE: 12/14/2016 SUBJECTIVE: Early this morning, I was called to Mr. Castellanos' room because he was having more difficulty breathing, and had a lot of congestion on his lungs, and was desaturating. OBJECTIVE: Vital signs: When we evaluated him, he was in blood pressure was 126/72, pulse is 115, respiration was about 32, temperature 97.5 degrees. Patient was saturating in the 80s. General: Mr. Castellanos is a 66-year-old male. He is in bed. HEENT: Mucosa is pink and slightly dry. Anicteric. She was having some difficulty breathing. Chest: Air entry is bilaterally reduced. There is both expiration and inspiration crackles all through the lung packer and some rhonchi. Abdomen: Soft. No hepatosplenomegaly. Extremities: No pedal edema. 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 Follows some basic commands. LABORATORY DATA: WBC is 13.85, hemoglobin is 13.8, platelet count is 235,000. Chemistry: Sodium is 166, potassium is 3.6, chloride is 120, creatinine is up to 1.4. RADIOLOGY: We did a CT scan of the chest which shows a right upper lobe nodule with central cavitation, most likely diagnosis includes infection or malignancy, tiny right pleural effusion with a small pericardial effusion. There is a bibasilar atelectasis. There is debris is within the right lower lobe bronchus, which may simply be mucus. ASSESSMENT: 1. Acute hypoxemic respiratory failure. 2. Multiple aspiration pneumonia. 3. Atrial fibrillation with rapid ventricular response on presentation. 4. Diastolic heart failure. 5. Altered mental status secondary to global encephalopathy. 6. Chronic obstructive pulmonary disease. 7. History of alcohol with withdrawal symptoms. 8. Severe hypernatremia. Patient was already on D5. Will go up on the rate to 100 mL/h. 9. Acute kidney injury likely secondary to dehydration. 10. Right upper lobe nodule with central cavitation likely from infection. This will be followed up once patient condition improves with subsequent imaging studies. I had a lengthy discussion with the sister. I updated her about Mr Bocanegra current condition and the fact he was place back on Bipap. cc: MD NO Vazquez
--- NOTE | 2016-12-14 12:16 | CONSULTATION ---
DATE OF CONSULTATION: 12/14/2016 REASON FOR REFERRAL: Trouble swallowing. HISTORY OF PRESENT ILLNESS: This is a 66-year-old white male who was admitted on 11/20/2016 for respiratory distress/respiratory failure. He required mechanical ventilation. He has been extubated and has since been transferred to the floor and is on a BiPAP machine. We were asked to see the patient for trouble swallowing. Currently the patient has a BiPAP in place. He is not alert or able to communicate at present time. There is no family at the bedside. Information is obtained from the nurse and the chart. Nurse reports that he has had some respiratory distress this morning and was placed back on BiPAP. PAST MEDICAL HISTORY: atrial fibrillation, COPD, hypertension, recent respiratory failure with admission to the hospital on 11/20/2016. PAST SURGICAL HISTORY: Hernia repair. ALLERGIES: Codeine; vomiting. HOME MEDICATIONS: Cardizem 120 mg daily, Lanoxin 125 mcg daily, Librium 50 mg every 8 hours. SOCIAL HISTORY: Positive for tobacco use, 1 pack daily. Positive for alcohol use daily. PHYSICAL EXAMINATION: Vital signs: Temperature 97.5 degrees, pulse 115, respirations 26, blood pressure 126/72. Generally: Patient arouses but did not follow commands. He is in restraints. He has a BiPAP in place and is unable to communicate with answering questions at present time. Respiratory: Lungs sound essentially clear. Cardiovascular: Regular rate and rhythm. He does have history of atrial fibrillation. Abdomen: Soft. Extremities: No lower extremity edema noted. DIAGNOSTIC RESULTS/LABORATORY: Hematology: White count 13.85, hemoglobin 13.8 , hematocrit 41.8, MCV 111.8, platelets 235,000. Chemistry: Sodium 166, potassium 3.6, chloride 120, CO2 34, BUN 51, creatinine 1.4, glucose 130, calcium 10.3, total bilirubin 1.96, AST 31, ALT 22, alkaline phosphatase 51. ASSESSMENT: 1. Recent respiratory failure requiring ventilator. He has been extubated and is on a BiPAP machine. 2. Alcohol withdrawal. 3. Bilateral pneumonia. 4. Atrial fibrillation. 5. Chronic obstructive pulmonary disease. 6. Dysphagia. PLAN: Continue symptomatic treatment and supportive care. He has several reasons for trouble swallowing. He has had recent intubation/extubation. Currently he has a BiPAP machine and is really not able to eat. Unable to fully evaluate swallowing status while his respiratory status is compromised. Would recommend to continue to monitor until his respiratory status has improved enough to do a GI workup for dysphagia which may include barium swallow or EGD. May have to have alternate nutrition if required, i.e. feeding tube placement if needed until we can proceed with further workup. We will continue to follow. I have discussed this case with Dr. Nevarez. Further plans will be made as needed. Thank you for this consultation. Dictated by RUIZ James for Rell Nevarez MD cc: RUIZ Jhaveri MD [facility]
[2016-12-14] MEDS: ATIVAN IV PRN (20:56)
[2016-12-15] MEDS: D5W 1,000 ML IV SCH ×3 (00:52→20:05)
[2016-12-15] MEDS: XOPENEX NEB INH SCH ×6 (03:25→23:30)
[2016-12-15] MEDS: ZOSYN 3.375 GM in NS 50 ML IV SCH ×4 (04:20→20:04)
[2016-12-15] MEDS: ATIVAN IV PRN ×6 (05:15→20:57)
[2016-12-15 07:22] LABS: HEMATOCRIT 39.6 % (42.0-52.0); HEMOGLOBIN 12.6 g/dL (14.0-18.0); MCH 35.9 PG (27-31); MCHC 31.8 g/dL (33-37); MCV 112.8 FL (81-99); MPV 10.9 FL (7.4-10.4); RBC 3.51 XMIL (4.7-6.1)
[2016-12-15 07:41] LABS: ALBUMIN 2.8 g/dL (3.5-5.0); CALCIUM 9.8 mg/dL (8.8-10.2); POTASSIUM 3.1 mmol/L (3.5-5.1); TOTAL BILIRUBIN 1.61 mg/dL (0.20-1.00); TOTAL PROTEIN 6.8 g/dL (6.3-8.3)
[2016-12-15] MEDS: MUCOMYST 20% INH SCH ×2 (07:46→19:40)
[2016-12-15] MEDS: HALDOL IV PRN ×3 (09:37→22:14)
[2016-12-15] MEDS: PROTONIX IV SCH (09:43)
[2016-12-15] MEDS: SODIUM CHLORIDE 0.9% INJ SCH (09:43)
[2016-12-15] MEDS ORDERED: CATHFLO IV ONE (12:11)
[2016-12-15] MEDS ORDERED: STERILE WATER INJ. INJ ONE (12:11)
[2016-12-15 15:43] LABS: POTASSIUM 3.2 mmol/L (3.5-5.1)
[2016-12-15] MEDS: DUONEB (A & A) INH PRN (15:43)
--- NOTE | 2016-12-15 16:24 | PROGRESS NOTE ---
DATE: 12/15/2016 SUBJECTIVE: The patient is not alert. He is not able to communicate. There is no family at the bedside. I spoke with the nurse. He states that he will not eat or drink because he is not alert enough. He gets combative. OBJECTIVE: Vital Signs: Temperature 99.8 degrees, pulse 85, respirations 23, blood pressure 141/111. General: Patient is restless. He is not alert, although he is awake and moving around on the bed. He does not follow commands. Oral mucosa is dry. Abdomen: Soft. Positive bowel sounds. He is currently off of BiPAP and on O2 by nasal cannula. DIAGNOSTIC RESULTS: Laboratory: Hematology shows white blood cells 11.87, hemoglobin 12.6, hematocrit 39.6, MCV 112.8, platelets 226. Chemistry: Sodium 164, potassium 3.1, chloride 119, CO2 31, BUN 53, creatinine 1.6. ASSESSMENT AND PLAN: 1. Respiratory distress/failure. He was recently on the ventilator and extubated. He has required a BiPAP at times; currently that is not in place. 2. Aspiration pneumonia. 3. Atrial fibrillation. 4. Diastolic heart failure. 5. Encephalopathy. 6. History of alcohol withdrawals. 7. Hypernatremia. 8. Acute kidney injury. 9. Dysphagia. PLAN: Continue symptomatic treatment. Supportive care. Continue antibiotics. It will be difficult for GI evaluation, including a modified barium swallow while the patient is not cooperative. We will continue to follow. Continue to encourage liquids. If the patient does not improve, he may need alternate course of nutrition. Possible NG-tube feeding. We will continue to follow. He may need an EGD at some point when he is more alert/stable. Further plans will be made as needed according to his progress. Dictated by RUIZ James for Rell Nevarez MD cc: RUIZ Jhaveri MD [facility]
[2016-12-15] MEDS: CATAPRES-TTS-2 TD SCH (16:45)
--- NOTE | 2016-12-15 17:03 | PROGRESS NOTE ---
DATE: 12/15/2016 SUBJECTIVE: Today, Mr. Csatellanos continues to be stable. I understand he was very confused and combative last night. Early this morning, he was given a dose of Ativan. By the time I got to see him he was just sleeping. OBJECTIVE: Vital signs: Blood pressure is 141/110, pulse 85, respirations 23, temperature 99.8. General: Ms. Castellanos is a 66-year-old male. He is in bed. He did not seem to be in any distress. He was actually not wearing the BiPAP this morning. HEENT: Mucosa is pink and moist. Anicteric. Acyanotic. Neck: Supple. Chest: Air entry is bilaterally reduced. There are still some diffuse bilateral and expiratory wheezing with some rhonchi and crackles. Cardiovascular: Regular rate and rhythm. No murmurs, no rubs. No gallops. Abdomen: Soft, nontender. Bowel sounds are present. No hepatosplenomegaly. Extremities: No pedal edema. Distal pulses are present. 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 We will follow some basic commands, but generally, he was very inattentive and not very cooperative. LABORATORY DATA: WBC is 11.87, hemoglobin is 12.6, platelet count is 226. Chemistry is reviewed: A repeat sodium this afternoon 161, coming from 164. Potassium at 3.2, chloride is 119. Creatinine is 1.6. ASSESSMENT: 1. Acute hypoxemic respiratory failure. Patient continues to be needing intermittently the BiPAP. 2. Recurrent aspiration pneumonia. 3. Atrial fibrillation, rapid ventricular rate on presentation. Patient is currently rate controlled. 4. Diastolic heart failure. 5. Altered mental status secondary to global encephalopathy. Patient seems also to be having delirium with baseline dementia. 6. History of severe alcohol binging in the past with withdrawal symptoms. Initially in the ICU. 7. Severe hypernatremia. We have gone up on the fluid needs to 125 for free water per hour and we will recheck on the sodium in the morning. 8. Acute kidney injury secondary to dehydration. 9. Right upper lobe nodule with central cavitation likely from infection. Patient continues to be on antibiotics. Pulmonary medicine is on board. PLAN: So in general, I think Mr. Castellanos respiratory status seems to be a little better today. We are going to continue with the nebulization antibiotics and follow further recommendations from Pulmonary Medicine. We have repeated the sodium and it is trending down. We are going to continue with the same rate of the IV fluids and pay very critical attention to the patient's lungs. We will continue to replace micronutrients, including thiamine and other vitamins. cc: Arron Diehl MD
[2016-12-16] MEDS: D5W 1,000 ML IV SCH ×2 (03:20→09:54)
[2016-12-16] MEDS: ZOSYN 3.375 GM in NS 50 ML IV SCH ×4 (03:20→20:01)
[2016-12-16] MEDS: XOPENEX NEB INH SCH ×6 (03:40→23:02)
[2016-12-16 06:57] LABS: HEMATOCRIT 40.1 % (42.0-52.0); HEMOGLOBIN 12.6 g/dL (14.0-18.0); MCHC 31.4 g/dL (33-37)
[2016-12-16 07:07] LABS: MCH 35.8 PG (27-31); MCV 113.9 FL (81-99); MPV 11.3 FL (7.4-10.4); RBC 3.52 XMIL (4.7-6.1)
[2016-12-16 07:14] LABS: MAGNESIUM 2.1 mg/dL (1.5-2.7)
[2016-12-16 07:27] LABS: ALBUMIN 2.7 g/dL (3.5-5.0); CALCIUM 8.7 mg/dL (8.8-10.2); POTASSIUM 3.5 mmol/L (3.5-5.1); TOTAL BILIRUBIN 1.33 mg/dL (0.20-1.00); TOTAL PROTEIN 6.5 g/dL (6.3-8.3)
[2016-12-16] MEDS: MUCOMYST 20% INH SCH ×2 (07:50→19:15)
[2016-12-16] MEDS ORDERED: VITAMIN B-1 PO SCH (09:00)
[2016-12-16] MEDS ORDERED: THERA M PLUS PO SCH (09:00)
[2016-12-16] MEDS: ATIVAN IV PRN (09:41)
[2016-12-16] MEDS: PROTONIX IV SCH (09:43)
[2016-12-16] MEDS: SODIUM CHLORIDE 0.9% INJ SCH (09:43)
[2016-12-16] MEDS: POTASSIUM CHLORIDE 20 MEQ/SWI 20 MEQ/100 ML IVPB IV SCH ×2 (12:20→15:40)
[2016-12-16] MEDS: CLINIMIX E 4.25%-5% SOLUTION 1,000 ML IV SCH (12:26)
--- NOTE | 2016-12-16 12:57 | PROGRESS NOTE ---
DATE: 12/16/2016 SUBJECTIVE: This morning, Mr. Castellanos was agitated and was given a dose of Haldol. He is currently now just sleeping. You can hear some rattling sounds in his throat. OBJECTIVE: Vital signs: Blood pressure is 117/64, pulse of 77, respirations 20, temperature is 97.3 degrees. Patient is saturating 94% on 4 L of oxygen. General: Mr. Castellanos is a 66-year-old male. He is in bed. He does not seem to be in any remarkable distress. However, I could hear a lot of rattling sounds from his throat. HEENT: Mucosa is pink and moist. Anicteric. Acyanotic. Neck: Supple. Chest: Air entry is bilaterally reduced. There are some transmitted sounds in the lung bases. There is also some coarse crepitations as well. Cardiovascular: Regular rate and rhythm. No murmurs. No rubs. No gallops. Abdomen: Soft. No hepatosplenomegaly. Bowel sounds were present. Extremities: No pedal edema. 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 He is better. He will open his eyes to painful stimulation. He makes some incomprehensive sounds and he moves all of his extremities. LABORATORY DATA: WBC is 12.17, hemoglobin is 12.6, platelet count of 189,000. Chemistry: Sodium is 154, potassium is 3.5, chloride is 114. Creatinine is slightly down to 1.5. ASSESSMENT: 1. Acute hypoxemic respiratory failure. The patient is currently saturating well on nasal cannula. 2. Recurrent aspiration pneumonia. 3. Atrial fibrillation with rapid ventricular response on presentation. Currently rate controlled. 4. Diastolic heart failure, stable. 5. Altered mental status secondary to global encephalopathy. 6. Delirium with baseline dementia. 7. History of severe alcohol bingeing in the past with withdrawal symptoms in the ICU. 8. Severe hypernatremia. This is improving. 9. Acute kidney injury secondary to dehydration, improving. 10. Right upper lobe nodule with central cavitation, likely infectious. Patient is currently on antibiotics. Pulmonary medicine is on board. PLAN: In general, I think Mr. Castellanos continues to be sick. I understand he had a deep suctioning early this morning and chunks secretions were aspirated and he started saturating better again. We are going to observe strictly aspiration precautions. Will keep the patient NPO. Will change his vitamins to IV and only use IV medications. Will also discontinue the D5 and put Clinimix to support his nutrition at this point since the patient continues to be NPO. I think in terms of the patient mentation, he is going to be waxing and waning for awhile before he gets stable. We will discontinue the Ativan and use only Haldol for agitation. cc: Arron Diehl MD
[2016-12-16] MEDS: M.V.I.-12 10 ML, FOLIC ACID 1 MG, MAGNESIUM SULFATE 1 GM, THIAMINE 100 MG in NS 1,000 ML IV SCH (18:33)
[2016-12-16] MEDS: LIPOSYN 20% 250 ML IV SCH (20:15)
[2016-12-16] MEDS: HALDOL IV PRN (21:15)
[2016-12-17] MEDS: HALDOL IV PRN ×2 (01:27→10:02)
[2016-12-17] MEDS: CLINIMIX E 4.25%-5% SOLUTION 1,000 ML IV SCH ×2 (01:29→15:44)
[2016-12-17] MEDS: XOPENEX NEB INH SCH ×6 (03:14→22:49)
[2016-12-17] MEDS: ZOSYN 3.375 GM in NS 50 ML IV SCH ×4 (04:00→21:11)
[2016-12-17 06:30] LABS: BASO% 0.7 % (0.0-0.8); EOS# 0.83 X1000 (0.0-0.7); EOS% 8.7 % (0.0-10.0); HEMATOCRIT 36.5 % (42.0-52.0); HEMOGLOBIN 11.6 g/dL (14.0-18.0); IMM GRAN# 0.03 X1000 (0.0-0.04); IMM GRAN% 0.3 % (0.0-0.5); LYMPH# 1.46 X1000 (1.2-3.4); LYMPH% 15.3 % (20.5-51.1); MANUAL DIFF NEEDED? NO; MCHC 31.8 g/dL (33-37); MCV 110.3 FL (81-99); MONO# 0.57 X1000 (0.11-0.59); MPV 11.1 FL (7.4-10.4); PLT 186 X1000 (130-400); RBC 3.31 XMIL (4.7-6.1)
[2016-12-17 06:55] LABS: MAGNESIUM 2.4 mg/dL (1.5-2.7)
[2016-12-17 06:57] LABS: ALBUMIN 2.6 g/dL (3.5-5.0); CALCIUM 9.2 mg/dL (8.8-10.2); POTASSIUM 3.8 mmol/L (3.5-5.1); TOTAL BILIRUBIN 0.88 mg/dL (0.20-1.00); TOTAL PROTEIN 6.8 g/dL (6.3-8.3)
--- NOTE | 2016-12-17 07:25 | Diag Imaging Result Doc PS360 ---
EXAM: CHEST-PORTABLE INDICATION: dyspnea TECHNIQUE: One view COMPARISON: 12/14/2016 FINDINGS: Inspiration is suboptimal. There is increasing opacity at the right lung base suggesting increasing effusion with adjacent atelectasis and/or infiltrate. The left PICC line is stable. The left lung is grossly stable. Cardiac silhouette is unchanged. IMPRESSION: Increasing effusion with adjacent atelectasis and/or infiltrate at the right lung base. Electronically signed by Leonel Cortes 12/17/2016 7:23 AM
[2016-12-17] MEDS: MUCOMYST 20% INH SCH ×2 (08:03→19:05)
[2016-12-17] MEDS: PROTONIX IV SCH (09:54)
--- NOTE | 2016-12-17 14:58 | PROGRESS NOTE ---
DATE: 12/17/2016 SUBJECTIVE: The patient's sisters are at the bedside today. This is the first time that I have seen or have been able to talk to any family members. They state that prior to his hospitalization, he would occasionally have a cough when eating or drinking. He did not complain of any trouble swallowing at the time. One of the sisters lives across the street from the patient and helps with his care. OBJECTIVE: Vital signs: Temperature is 98.2, pulse 79, respirations 20, blood pressure 164/87. General: The patient is a little more awake today. He is still not able to communicate appropriately, but he was able to tell me his name. He continues to be in restraints. Respiratory: With some congestion noted. Cardiovascular: Regular rate and rhythm. Abdomen: Soft. Positive bowel sounds. Nontender. DIAGNOSTIC DATA: Hematology: WBC is 9.56, hemoglobin 11.6, hematocrit 36.5, MCV of 110.3, platelets 186. Chemistry shows sodium 156, potassium 3.8, chloride 118, CO2 is 27, BUN is 38, creatinine 1.5, glucose 106. ASSESSMENT: 1. Aspiration pneumonia. 2. History of respiratory failure. He had been on a ventilator and has been extubated now with O2 by nasal cannula. 3. Delirium tremens. 4. Altered mental status. 5. History of alcohol abuse. PLAN: Continue to monitor. He is currently not able to eat anything due to his mental status and history of aspiration. They have IV Clinimix infusing, and currently the patient is being kept n.p.o. We will continue to follow, and further plans will be made according to his progress of whether he needs endoscopy evaluation or maybe a barium swallow once he is able to tolerate those tests. We will continue to follow him. Further plans will be made as needed. Dictated by RUIZ James for Rell Nevarez MD cc: RUIZ Jhaveri MD
[2016-12-17] MEDS: LIPOSYN 20% 250 ML IV SCH (15:47)
[2016-12-17] MEDS: M.V.I.-12 10 ML, FOLIC ACID 1 MG, MAGNESIUM SULFATE 1 GM, THIAMINE 100 MG in NS 1,000 ML IV SCH (16:08)
[2016-12-17] MEDS: APRESOLINE IV PRN (21:11)
[2016-12-18] MEDS: CLINIMIX E 4.25%-5% SOLUTION 1,000 ML IV SCH ×3 (01:40→14:36)
[2016-12-18] MEDS: XOPENEX NEB INH SCH ×6 (03:28→22:55)
[2016-12-18] MEDS: ZOSYN 3.375 GM in NS 50 ML IV SCH ×2 (04:03→08:46)
[2016-12-18] MEDS: APRESOLINE IV PRN (05:43)
[2016-12-18 06:37] LABS: HEMATOCRIT 39.7 % (42.0-52.0); HEMOGLOBIN 13.3 g/dL (14.0-18.0); MCH 36.2 PG (27-31); MCHC 33.5 g/dL (33-37); MCV 108.2 FL (81-99); MPV 11.2 FL (7.4-10.4); RBC 3.67 XMIL (4.7-6.1)
[2016-12-18 06:59] LABS: ALBUMIN 2.6 g/dL (3.5-5.0); CALCIUM 9.3 mg/dL (8.8-10.2); POTASSIUM 4.4 mmol/L (3.5-5.1); TOTAL BILIRUBIN 1.02 mg/dL (0.20-1.00); TOTAL PROTEIN 7.5 g/dL (6.3-8.3)
[2016-12-18] MEDS: MUCOMYST 20% INH SCH ×2 (07:39→18:56)
--- NOTE | 2016-12-18 08:26 | PROGRESS NOTE ---
DATE: 12/17/2016 SUBJECTIVE: Today, Mr. Castellanos feels and looks a whole lot better than yesterday. He is just on nasal cannula. He is more alert. Of course, confused, but he looks a whole lot more alert than the days before. OBJECTIVE: Vital signs: Blood pressure is 164/87, pulse of 79, respirations 20 , temperature 98.2 degrees. General: Mr. Castellanos is a 66-year-old male. He is in bed, does not seem to be in any distress. HEENT: Mucosa is slightly dry. Anicteric. Acyanotic. Neck: Supple. Chest: Air entry is bilaterally reduced, more so to the right posterior lung field. There is a few bibasilar crepitations. Cardiovascular: Regular rate and rhythm. There is no murmur, no rubs, no gallops. Abdomen: Soft, nontender. Bowel sounds are present. No hepatosplenomegaly. Extremities: No pedal edema. Central nervous system: The patient is more awake and alert. He knows his name, able to follow some basic commands. He is able to stick out his tongue upon command. He continues to be in 2-point restraints. Genitourinary: Prather catheter is in place. LABORATORY DATA: WBC is 9.56, hemoglobin is 11.6, platelet count of 186,000. Chemistry is reviewed. Sodium is 156, is gradually coming down. Chloride is 118, creatinine is 1.5, BUN is 38. CURRENT MEDICATIONS: Include: 1. Clonidine patch. 2. Clinimix with lipid infusion. 3. Nebulization. 4. Banana bag. 5. Protonix 40 IV q.24. 6. Zosyn 3.375 g every 6 hours, and today is day 13 on medication. We will plan to continue with this for another day more. Assessment and plan: 1. Acute kidney injury. Creatinine is stable. It dipped slightly yesterday, and today is 1.5. We will continue with the hydration. 2. Hypernatremia, with hyperchloremia. Will continue with IV fluids. 3. Nutritional needs. We will continue using the Clinimix with the lipid infusion. 4. Acute hypoxemic respiratory failure. The patient is saturating on nasal cannula, seems to be doing fine. 5. Recurrent aspiration pneumonia, with possible aspiration in the right lower lobe. Will continue n.p.o. for now. 6. Atrial fibrillation with rapid ventricular response, currently rate- controlled. 7. Diastolic heart failure, stable. 8. Altered mental status due to global encephalopathy. 9. Delirium, with baseline dementia. 10. History of severe alcohol binging in the past, with withdrawal symptoms in the intensive care unit. 11. Right upper lobe central cavitation lesion, likely infectious. Will continue with antibiotics. So, in general, I think Mr. Castellanos is slightly improving. His mentation is going to be a very slow, but steady, one because he probably might have an underlying dementia. He also probably has cognitive decline, associated with a lot of alcohol use. We will, however, continue with his nutritional supplement, keep him n.p.o. and gradually get him better. cc: Arron Diehl MD [facility]
[2016-12-18] MEDS ORDERED: TYLENOL PR ONE (08:38)
[2016-12-18] MEDS: LOPRESSOR IV PRN ×2 (08:51→19:54)
[2016-12-18] MEDS: PROTONIX IV SCH (10:41)
[2016-12-18] MEDS ORDERED: LEVAQUIN 500 MG/D5W 500 MG/100 ML IVPB IV SCH (12:30)
--- NOTE | 2016-12-18 12:42 | Diag Imaging Result Doc PS360 ---
EXAM: CHEST-PORTABLE HISTORY: dyspnea TECHNIQUE: Portable AP upright COMPARISON: 12/17/2016 FINDINGS: The lungs are well expanded. The heart is not enlarged. Partial clearing of the right basilar infiltrates and atelectasis. No pleural effusions identified. IMPRESSION: Interval improvement Electronically signed by James Grossman 12/18/2016 12:40 PM
[2016-12-18] MEDS: LIPOSYN 20% 250 ML IV SCH (14:36)
[2016-12-18] MEDS: D5W 1,000 ML IV SCH ×2 (14:58→23:52)
[2016-12-18] MEDS: LASIX IV SCH (15:01)
[2016-12-18] MEDS: MERREM 500 MG in NS 50 ML IV SCH ×2 (15:42→23:37)
[2016-12-18] MEDS: CUBICIN 500 MG in NS 100 ML IV SCH (17:02)
--- NOTE | 2016-12-18 18:56 | PROGRESS NOTE ---
DATE: 12/18/2016 SUBJECTIVE: Today Mr. Ocasio continues to be very sick. Per the nursing staff , Mr. Castellanos is a little obtunded this morning and he has been running some temperature. OBJECTIVE: Vital signs: Blood pressure is 156/97, pulse of 132, respirations 18, temperature is 99.4 degrees. General: Mr. Castellanos is a 66-year-old male. He is in bed. HEENT: Mucosa is pink. Anicteric and acyanotic. Neck: Supple. Chest: Air entry is bilaterally reduced. There are diffuse expiratory and inspiratory rhonchi and there are also some wet crackles throughout the lungs. Cardiovascular: Tachycardic. No murmurs. Abdomen: Soft. Extremities: No pedal edema. CARE PROFESSIONAL: Patient is drowsy, but easily arousable. Does not follow any commands. LABORATORY DATA: WBC is 8.32, hemoglobin is 13.3, platelet count 189,000. Chemistry is reviewed. Sodium is 156. Potassium is 4.4, chloride is 116, bicarb is 31, BUN is 33, creatinine is 1.4. IMAGING: A chest x-ray yesterday did shows some atelectasis with pleural fluid on the right. ASSESSMENT: 1. Recurrent aspiration pneumonia. A chest x-ray yesterday did show possibility of a focal pneumonia on the right with possible fluid. We are going to recheck on this. Patient seems to be decompensating. He has been on Zosyn for the past some 17 days. So I have discontinued that and depending on the x-ray this morning, we will put him on a different type of antibiotics. 2. History of atrial fibrillation, rapid ventricular response. Patient is currently tachycardic, but seems to be sinus and I think is reactive to the infection. 3. Diastolic heart failure. 4. Altered mental status secondary to global encephalopathy. The patient has had dementia with superimposed delirium and also alcohol withdrawals. 5. History of severe alcohol binging in the past. 6. Right upper lobe central lesion cavitation, likely infectious. 7. Acute kidney injury. 8. Nutritional support. We are going to continue with the Clinimix; however, patient is having a lot chest findings so we are going to cut down the rate to only 50 mL/hour. 9. Hypernatremia. Has not had any major improvement overnight. PLAN: So today Mr. Ocasio looks like he is getting more decompensated. He is having more tachycardia. He is febrile. White cell has not moved, so I think he is having more infection in the lungs. I have discontinued the Zosyn because patient has been on that since 12/01, that will be 17 days. We will start him on carbapenem and also levofloxacin depending on how the x-ray looks. I have also discussed the case with the pasteurizing machine operator on board-- Dr Alvarez. He also recommends to give D5 with Lasix to see if we improve his sodium and mentation. I have also discontinued his haldol just in case the fever is related to medication side effects. I have done blood cultures as well. cc: Arron Diehl MD MTDD
--- NOTE | 2016-12-18 18:59 | PROGRESS NOTE ---
DATE: 12/18/2016 SUBJECTIVE: Patient is resting comfortably. He is on nasal cannula now. No new complaints. OBJECTIVE: Vital Signs: Temperature 98.1 degrees, pulse 100 per minute, breathing 41 per minute, blood pressure is 135/71. IMPRESSION: Aspiration pneumonia with history of respiratory failure. He is improving. Now he is not on CPAP, he is on nasal cannula. DT, altered mental status with history of alcohol abuse. PLAN: The plan would be to continue current treatment and once he is stable enough for me to proceed with the EGD and possible dilation, I will do so. He may benefit from getting bedside swallowing studies and/or barium swallow. If he can tolerate, that can be done on Tuesday. cc: Rell Nevarez MD
[2016-12-18 19:54] LABS: BE 6.4 mmoll (-3.0-3.0); BLOOD TYPE ARTERIAL; DRAW SITE R BRACHIAL; METHB 0.7 % (0.0-1.5); O2(CT) 17.2 mL/dL (15.0-23.0); PCO2(98.6) 35 mmHg (35-45); PO2(98.6) 51 mmHg (60-100); SAMPLE BLOOD; SAO2 92.4 % (95.0-100.0); THB 13.6 g/dL (11.5-17.4); pH(98.6) 7.53 (7.35-7.45)
[2016-12-18 19:55] LABS: MODALITY CANNULA
[2016-12-18] MEDS: TYLENOL PR PRN (19:55)
[2016-12-18 20:49] LABS: URINE MICRO REVIEW NEEDED? NO; URINE SOURCE CATH
[2016-12-18 20:52] LABS: BILIRUBIN URINE NEGATIVE (NEGATIVE); BLOOD URINE SMALL (NEGATIVE); COLOR YELLOW; GLUCOSE URINE NEGATIVE (NEGATIVE); LEUKOCYTES URINE NEGATIVE (NEGATIVE); NITRITE URINE NEGATIVE (NEGATIVE); PH URINE 5.5; PROTEIN URINE TRACE mg/dL (NEGATIVE); SP GRAVITY URINE 1.012; TURBIDITY URINE HAZY (CLEAR); UROBILINOGEN URINE NORMAL (NORMAL)
[2016-12-18 20:53] LABS: UR EPITHELIAL CELLS <10 /HPF (<10); URINE BACTERIA NEGATIVE /HPF; URINE RBC <10 /HPF (<10); URINE WBC <10 /HPF (<10)
[2016-12-19] MEDS: LASIX IV SCH ×2 (01:59→14:38)
[2016-12-19] MEDS: XOPENEX NEB INH SCH ×6 (03:37→23:15)
[2016-12-19] MEDS: MERREM 500 MG in NS 50 ML IV SCH ×3 (06:08→22:43)
[2016-12-19] MEDS: D5W 1,000 ML IV SCH ×3 (06:11→21:01)
[2016-12-19 06:55] LABS: HEMATOCRIT 38.7 % (42.0-52.0); HEMOGLOBIN 13.1 g/dL (14.0-18.0); MCH 35.6 PG (27-31); MCHC 33.9 g/dL (33-37); MCV 105.2 FL (81-99); MPV 11.8 FL (7.4-10.4); RBC 3.68 XMIL (4.7-6.1)
--- NOTE | 2016-12-19 06:58 | Diag Imaging Result Doc PS360 ---
EXAM: CHEST-PORTABLE HISTORY: dyspnea TECHNIQUE: Portable COMPARISON: 12/18/2016 FINDINGS: Mild increased interstitial markings in the right base. Heart is not enlarged. The vessels are not distended. Left lung is clear. No pleural effusions identified. IMPRESSION: No interval improvement in the right basilar infiltrate Electronically signed by James Grossman 12/19/2016 6:55 AM
[2016-12-19 07:18] LABS: ALBUMIN 2.3 g/dL (3.5-5.0); CALCIUM 8.5 mg/dL (8.8-10.2); POTASSIUM 3.4 mmol/L (3.5-5.1); TOTAL BILIRUBIN 0.57 mg/dL (0.20-1.00); TOTAL PROTEIN 6.8 g/dL (6.3-8.3)
[2016-12-19] MEDS: MUCOMYST 20% INH SCH ×2 (08:08→19:40)
[2016-12-19] MEDS: CLINIMIX E 4.25%-5% SOLUTION 1,000 ML IV SCH (08:31)
[2016-12-19] MEDS: TYLENOL PR PRN (10:45)
[2016-12-19] MEDS: LOVENOX SUBQ SCH (12:09)
[2016-12-19] MEDS: PROTONIX IV SCH (12:09)
[2016-12-19] MEDS: LIPOSYN 20% 250 ML IV SCH (12:10)
[2016-12-19] MEDS: CUBICIN 500 MG in NS 100 ML IV SCH (15:42)
[2016-12-19] MEDS: LEVAQUIN 250 MG/D5W 250 MG/50 ML IVPB IV SCH (18:23)
--- NOTE | 2016-12-19 18:37 | PROGRESS NOTE ---
DATE: 12/19/2016 SUBJECTIVE: Mr. Castellanos is sitting up and on nasal cannula. He appears to be mumbling and has not been able to communicate appropriately. However he does tell me the year was 2016 but was not able to answer any pertinent questions. OBJECTIVE: On examination, temperature today was 100.7, pulse fluctuated from 98 to 103 per minute, breathing at a rate of 30 per minute, blood pressure 112/74. PLAN: The plan would be to continue on current treatment. I am not sure he is going into DT. I would continue DT precaution and DT management. In the meantime continue supportive care. I will be available once he is capable or stable enough for me to do an endoscopy to dilate or biopsy if needed. In the meantime, once he is awake enough we can do bedside swallowing studies or barium swallow as well, if he needs swallow as well. cc: Rell Nevarez MD
--- NOTE | 2016-12-19 20:04 | PROGRESS NOTE ---
DATE: 12/19/2016 SUBJECTIVE: Today, Mr. Castellanos looks a little bit more alert than yesterday. He was actually able to tell me that he is feeling a little better. OBJECTIVE: Vital signs: Blood pressure is 137/75, pulse of 105, respirations 24, temperature is 98.3 degrees, the patient was saturating 96% on nasal cannula. General: Mr. Castellanos is a 66-year- old male. He is in bed. He did not seem to be in any distress. HEENT: Mucosa is pink and moist. Anicteric and acyanotic. Neck: Supple. Chest: Air entry is bilaterally reduced. There are still some diffuse bilateral crepitations which are wet. Cardiovascular: Tachycardic, but no murmurs, no rubs, no gallops. Abdomen: Soft, nontender. Bowel sounds are present. There is no hepatosplenomegaly. Extremities: No pedal edema. He moves all his extremities. V BELT CURER: Patient is more alert, but continues to be confused and does not know his name, does not know where he is. He was not able to follow any commands early on today when I saw him. LABORATORY DATA: Laboratory data has been reviewed. WBC is 8.18, hemoglobin is 13.1, platelet count of 137,000. Chemistry is reviewed. Sodium is 149, potassium is 3.4, chloride is 111, BUN is 37, creatinine went up slightly to 1.8. ASSESSMENT: 1. Recurrent aspiration pneumonia. 2. History of atrial fibrillation, rapid ventricular response. 3. Diastolic heart failure. 4. Altered mental status secondary to global encephalopathy. 5. Delirium with baseline dementia. 6. History of alcohol binging in the past with withdrawal syndrome in the ICU. 7. Right upper lobe central lesion cavitation, likely infectious. 8. Acute kidney injury. We will continue with the hydration. 9. Hypernatremia. We will be giving the patient 150 mL/hour of D5 for another 24 hours and see how he is. There have been some improvement from yesterday to today, and his mentation has also significantly improved. PLAN: In general, I think today Mr. Castellanos looked a little better. I have just been told that he is now out of restraints and his mentation continues to improve. We will continue with the current antibiotics and the fluids to see if we can bring down the sodium even lower and go from there. cc: Arron Diehl MD
[2016-12-19] MEDS: MYCAMINE 100 MG in NS 100 ML IV SCH (20:39)
[2016-12-20] MEDS: D5W 1,000 ML IV SCH (01:41)
[2016-12-20] MEDS: LASIX IV SCH ×2 (01:43→16:20)
[2016-12-20] MEDS: XOPENEX NEB INH SCH ×6 (03:30→22:14)
[2016-12-20] MEDS: CLINIMIX E 4.25%-5% SOLUTION 1,000 ML IV SCH ×3 (05:06→20:45)
[2016-12-20] MEDS: MERREM 500 MG in NS 50 ML IV SCH ×3 (05:55→21:53)
[2016-12-20 06:40] LABS: HEMOGLOBIN 12.9 g/dL (14.0-18.0); MCH 36.3 PG (27-31); MCHC 34.9 g/dL (33-37); MCV 104.2 FL (81-99); MPV 11.8 FL (7.4-10.4); RBC 3.55 XMIL (4.7-6.1)
[2016-12-20 07:14] LABS: ALBUMIN 2.1 g/dL (3.5-5.0); CALCIUM 8.2 mg/dL (8.8-10.2); POTASSIUM 2.8 mmol/L (3.5-5.1); TOTAL BILIRUBIN 0.51 mg/dL (0.20-1.00); TOTAL PROTEIN 6.3 g/dL (6.3-8.3)
[2016-12-20] MEDS: MUCOMYST 20% INH SCH ×2 (08:12→19:20)
[2016-12-20] MEDS: LOVENOX SUBQ SCH (10:25)
[2016-12-20] MEDS: SODIUM CHLORIDE 0.9% INJ SCH (10:25)
[2016-12-20] MEDS: PROTONIX IV SCH (10:25)
[2016-12-20] MEDS: POTASSIUM CHLORIDE 20 MEQ/SWI 20 MEQ/100 ML IVPB IV SCH ×2 (12:37→16:03)
--- NOTE | 2016-12-20 14:17 | CONSULTATION ---
DATE OF CONSULTATION: 12/20/2016 PRESENT ILLNESS: Dr. Diehl asked me to see the patient because he has 2 positive blood cultures for yeast. I see an order to take out a catheter was done. I would assume that the patient most likely had a PICC, and this certainly would be the most likely source of the fungemia. RECOMMENDATIONS: I agree with starting the patient on micafungin pending susceptibility testing. DISCUSSION: Unfortunately, this patient is unable to communicate at this time. According to the chart, he was admitted with difficulty breathing. He also was found to have a tachycardia with atrial fibrillation with a rapid ventricular response. PAST MEDICAL HISTORY: Positive for COPD, hypertension, atrial fibrillation, alcoholism, cigarette smoking. PAST SURGICAL HISTORY: Positive for hernia repair. SOCIAL HISTORY: The patient drinks daily. He smokes cigarettes, but he denied illicit drug use. ALLERGIES: The patient has an allergy to codeine. DIAGNOSTIC DATA: The patient's CT scan of the chest showed a cavitary lesion in the lung. The patient's head CT scan showed no evidence of acute intracranial disease. The patient's latest chest x-ray shows that the patient has a right basilar infiltrate. A chest CT scan showed a right upper lobe nodule with central cavitation, a tiny right pleural effusion, basilar atelectasis with scattered nodular infiltrates and debris within the patient's bronchus. It should be noted that when I asked the patient questions, he could not answer them. He had a real gurgling sound in his throat and was unable to speak. ALLERGIES: He only drug allergy is to codeine. HOME MEDICATIONS: Diltiazem, digoxin, and Librium. PHYSICAL EXAMINATION: Vital signs: Temperature is 98.3 degrees, pulse 85, respirations 20, blood pressure 122/80. Patient is 6 feet 1 inch tall, weighs 164 pounds. General: This is an ill- appearing, elderly male who is in no acute distress. Head, eyes, ears, nose, and throat: Appeared to be able to hear my spoken words and see near objects. As mentioned above, when he tried to talk, all I heard was a gurgling sound. Neck: No meningismus. Thorax: Increased AP diameter of the chest. Lungs: Bilateral rhonchi. Cardiovascular: His rhonchi was so loud, that I could not hear any heart tones. When I palpated his pulse, it appeared to be regular. Abdomen: Soft and nontender. Neurologic: Patient is awake. He did move his extremities to request. There was no tremor. Integument: No rash noted. Thank you for the consult. cc: Zak Garvin MD
[2016-12-20] MEDS: LIPOSYN 20% 250 ML IV SCH (16:03)
--- NOTE | 2016-12-20 17:11 | PROGRESS NOTE ---
DATE: 12/20/2016 SUBJECTIVE: Today, Mr. Castellanos referred to be doing a little better. He was able to extend his hand, even to shake, which has been a remarkable improvement from where he was before. OBJECTIVE: Vital signs: Blood pressure is 136/87, pulse 83, respirations 22, temperature is 98.1 degrees. The patient was saturating about 94% on 4 L of oxygen. General: Mr. Castellanos is a 66- year-old gentlemen. He is in bed. He was not in any remarkable distress. HEENT: Mucosa is pink and moist. Anicteric. Acyanotic. Neck: Supple. Chest: Air entry is bilaterally reduced. There are diffuse bilateral posterior rales and wet crackles. There is also some expiratory rhonchi. Cardiovascular: Regular rate and rhythm. There are no murmurs, no rubs, no gallops. Abdomen: Soft, nontender. No hepatosplenomegaly. Extremities: No pedal edema. Central nervous system: The patient is more awake and alert. Continues to be confused. He is able to say a few things that are not very clearly comprehensible. He moves all his extremities, and he is not in any restraints. LABORATORY DATA: WBC is 5.80, hemoglobin is 12.9, platelet count is 112,000. Chemistry is reviewed. Sodium is 148, potassium is 2.8, chloride is 106, bicarb is 27, creatinine is 1.4, which improved from yesterday which was 1.8. The blood culture, which was done on December 18, yielded yeast, which we do not know which type. ASSESSMENT: 1. Fungemia. This has been a new development in hospital. The patient did have a PICC line on the left arm. This has been taken out, and the tip has been also sent for culture. We will follow up on the report of the culture. We started the patient on micafungin, and Infectious Disease has been consulted. 2. Recurrent aspiration pneumonia. We are going to continue observing aspiration precautions for now. The patient will be n.p.o. until his mentation has significantly improved. 3. History of atrial fibrillation with rapid ventricular response on presentation, improved. 4. Diastolic heart failure noted. 5. Altered mental status, due to global encephalopathy. 6. Delirium, with baseline dementia. 7. History of alcohol bingeing in the past, with withdrawal syndromes in the ICU. The patient seems to be improving. 8. Right upper lobe nodule with central cavitation, likely infectious. Will continue with meropenem and levofloxacin. 9. Acute kidney injury with hypernatremia. The patient was on D5 for 24 hours. Sodium is improved. Creatinine is also cutting down; however. It sounds like he is getting more congested, so I have discontinued the D5. Go up on the Clinimix, just to continue on his hydration and also provide some nutrients. 10. Generalized weakness and deconditioning. We will continue with physical therapy, and I think eventually the patient would need to be discharged to rehabilitation. I spoke extensively yesterday with the sister. The sister has concerns that she can no longer take care of Mr. Castellanos at home, since she already has a physically-challenged son at home that she is taking care of. She has, therefore, solicited the services of social work to see if Mr. Castellanos can be placed in rehabilitation with the vision of long-term placement. salvage mend worker is aware and she is working on this. cc: Arron Diehl MD
[2016-12-20] MEDS: MYCAMINE 100 MG in NS 100 ML IV SCH (18:53)
[2016-12-20] MEDS: LEVAQUIN 250 MG/D5W 250 MG/50 ML IVPB IV SCH (20:42)
[2016-12-21] MEDS: LASIX IV SCH ×2 (03:04→14:00)
[2016-12-21] MEDS: XOPENEX NEB INH SCH ×6 (03:37→23:15)
[2016-12-21] MEDS ORDERED: HALDOL IM ONE (03:54)
[2016-12-21] MEDS: MERREM 500 MG in NS 50 ML IV SCH ×3 (06:31→21:56)
[2016-12-21 06:44] LABS: HEMATOCRIT 37.9 % (42.0-52.0); HEMOGLOBIN 12.7 g/dL (14.0-18.0); MCH 35.4 PG (27-31); MCHC 33.5 g/dL (33-37); MCV 105.6 FL (81-99); MPV 12.6 FL (7.4-10.4); PLT 119 X1000 (130-400); RBC 3.59 XMIL (4.7-6.1)
[2016-12-21 06:52] LABS: AGAP 9; ALBUMIN 2.3 g/dL (3.5-5.0); ALKALINE PHOSPHATASE 86 U/L (32-122); BUN 36 mg/dL (8-22); CALCIUM 8.6 mg/dL (8.8-10.2); CHLORIDE 104 mmol/L (98-107); COSMO 294; GOT 70 U/L (10-34); GPT 34 U/L (10-44); POTASSIUM 3.2 mmol/L (3.5-5.1); SODIUM 143 mmol/L (136-145); TCO2 30 mmol/L (25-35); TOTAL BILIRUBIN 0.49 mg/dL (0.20-1.00); TOTAL PROTEIN 6.3 g/dL (6.3-8.3)
[2016-12-21 07:14] LABS: BANDS 8 % (0-1); EOS 2 % (1-10); LYMPHS 34 % (21-51); MONO 4 % (1-9)
--- NOTE | 2016-12-21 07:44 | Diag Imaging Result Doc PS360 ---
CHEST-PORTABLE - 12/21/2016 INDICATION: dyspnea TECHNIQUE: COMPARISON: 12/19/2016 FINDINGS: Stable right hilar prominence suggesting mild adenopathy. No new or focal infiltrates. Heart size and pulmonary vascularity is top normal. No pneumothorax or large effusion. IMPRESSION: No change from prior. Electronically signed by Franco Bautista 12/21/2016 7:42 AM
[2016-12-21] MEDS: MUCOMYST 20% INH SCH ×2 (07:51→19:41)
[2016-12-21] MEDS ORDERED: POTASSIUM CHLORIDE 20 MEQ/SWI 20 MEQ/100 ML IVPB IV SCH (08:00)
[2016-12-21] MEDS ORDERED: POTASSIUM CHLORIDE 60 MEQ in NS 500 ML IV ONE (08:21)
[2016-12-21] MEDS: CLINIMIX E 4.25%-5% SOLUTION 1,000 ML IV SCH ×3 (09:20→23:43)
[2016-12-21] MEDS: PROTONIX IV SCH (09:22)
[2016-12-21] MEDS: LOVENOX SUBQ SCH (09:22)
[2016-12-21] MEDS: SODIUM CHLORIDE 0.9% INJ SCH (09:22)
[2016-12-21] MEDS: LIPOSYN 20% 250 ML IV SCH (13:56)
--- NOTE | 2016-12-21 15:40 | PROGRESS NOTE ---
DATE: 12/21/2016 SUBJECTIVE: The patient is resting comfortably in bed. No acute events noted overnight. He has no complaints at this time. OBJECTIVE: Vital Signs: Temperature 98, blood pressure 143/71, heart rate 71, respirations 20, O2 saturations 94% on 3 L nasal cannula. General: This is a chronically ill-appearing, elderly male lying in bed in no acute distress. Heart: S1, S2. Normal. Regular rate. Lungs: Coarse breath sounds bilaterally, no crackles. Abdomen: Positive bowel sounds. Soft, nontender, nondistended. Extremities: Trace pedal edema. No cyanosis. Neurologic: The patient is awake and alert. LABS: White blood cell count 5.7, hemoglobin 12, hematocrit 37, platelets 119. Sodium 143, potassium 3.2, chloride 104, CO2 30, BUN 36, creatinine 1.2, glucose 108, calcium 8.6, albumin 2.3, AST 70, ALT 34. ASSESSMENT/PLAN: 1. Fungemia. Continue on micafungin. Dr. Garvin is following. 2. Global encephalopathy. Continue to monitor for improvement. 3. Right upper lobe cavitary lesion and pneumonia. Continue on Merrem plus bronchodilator therapy. 4. Thrombocytopenia. Slightly improved today. We will continue to monitor this closely. 5. Hypokalemia. Will replace the patient's potassium. 6. Acute kidney injury. Resolving. 7. Severe protein calorie malnutrition. Continue on Clinimix. cc: Manasa Mccoy MD
[2016-12-21] MEDS: HALDOL IM PRN (16:06)
[2016-12-21] MEDS: MYCAMINE 100 MG in NS 100 ML IV SCH (18:11)
--- NOTE | 2016-12-21 18:29 | PROGRESS NOTE ---
DATE: 12/21/2016 PRESENT ILLNESS: The patient has a fungemia most likely originating from an intravenous catheter. He also has on chest x-ray a right lower lobe infiltrate. MEDICATIONS: The patient is on a combination of micafungin, Levaquin and meropenem. PHYSICAL EXAMINATION: Vital Signs: Temperature is 98.1 degrees, pulse 71, respirations 20, blood pressure 143/79. General: The patient looks much better today. He is awake and he is talking. He is not having any difficulty breathing. Ear, nose and throat: Patient is missing most of his teeth. Lungs: Clear to auscultation. Cardiovascular: Regular heart rate. Abdomen: Soft and nontender. LAB AND X-RAY: Today the CBC shows a white count of 5700, hemoglobin 12.7, and platelet count 119,000. Creatinine is 1.2. GFR is greater than 60. The AST is 70. Blood cultures are growing yeast. The catheter tip culture is pending. Chest x-ray shows possible hilar adenopathy and a continued right lower lobe infiltrate. ASSESSMENT AND PLAN: The patient has fungemia pneumonia. For now, we will continue with Levaquin, meropenem and micafungin. COMORBIDITIES: He has COPD. He is alcoholic and he smokes cigarettes. cc: Zak Garvin MD
[2016-12-21] MEDS ORDERED: ATIVAN IV ONE (18:30)
[2016-12-21] MEDS: LEVAQUIN 250 MG/D5W 250 MG/50 ML IVPB IV SCH (19:58)
[2016-12-22] MEDS: LASIX IV SCH ×2 (01:41→14:07)
[2016-12-22] MEDS: XOPENEX NEB INH SCH ×6 (03:30→23:01)
[2016-12-22] MEDS: MERREM 500 MG in NS 50 ML IV SCH ×2 (05:38→14:07)
[2016-12-22 07:13] LABS: AGAP 11; ALBUMIN 2.6 g/dL (3.5-5.0); ALKALINE PHOSPHATASE 94 U/L (32-122); BUN 40 mg/dL (8-22); CALCIUM 8.7 mg/dL (8.8-10.2); CHLORIDE 104 mmol/L (98-107); COSMO 300; GOT 69 U/L (10-34); GPT 36 U/L (10-44); POTASSIUM 3.6 mmol/L (3.5-5.1); SODIUM 146 mmol/L (136-145); TCO2 31 mmol/L (25-35); TOTAL BILIRUBIN 0.52 mg/dL (0.20-1.00); TOTAL PROTEIN 6.6 g/dL (6.3-8.3)
[2016-12-22] MEDS: MUCOMYST 20% INH SCH ×2 (07:47→19:24)
[2016-12-22] MEDS: D5W 1,000 ML IV SCH (10:13)
[2016-12-22] MEDS: CLINIMIX E 4.25%-5% SOLUTION 1,000 ML IV SCH ×2 (10:15→12:58)
[2016-12-22] MEDS: PROTONIX IV SCH (10:44)
[2016-12-22] MEDS: SODIUM CHLORIDE 0.9% INJ SCH (10:44)
[2016-12-22] MEDS: LOVENOX SUBQ SCH (10:44)
[2016-12-22] MEDS: LIPOSYN 20% 250 ML IV SCH (12:42)
--- NOTE | 2016-12-22 15:45 | PROGRESS NOTE ---
DATE: 12/22/2016 SUBJECTIVE: The patient states he is feeling better. Per nurse report, he had a swallow evaluation and was able to tolerate thickened liquids and pureed diet. OBJECTIVE: Vital Signs: Temperature 97.7 degrees, pulse 72, respirations 16, blood pressure 140/76. General: Patient is awake, alert, in no acute distress. He is more alert and is communicating better today. Respiratory: Lung sounds essentially clear. Abdomen: Soft, nontender. Positive bowel sounds. DIAGNOSTIC RESULTS: Laboratory: Hematology reveals WBC 5.75, hemoglobin 12.7, hematocrit 37.9, MCV 105.6, platelet 119. Chemistry: Sodium 146, potassium 3.6, chloride 104, CO2 31, BUN 40, creatinine 1.1, glucose 101. ASSESSMENT: 1. Fungemia pneumonia on antibiotics and micafungin. 2. Dysphagia. 3. Altered mental status. PLAN: His mentation is improving. He is more alert today. He has had repeat swallow evaluation, and per nurse was able to tolerate pureed diet and thickened liquids. Continue those and follow strict aspiration precautions. Keep head of bed elevated when eating. We will continue to follow and be available as needed. Dictated by RUIZ James for Rell Nevarez MD cc: RUIZ Jhaveri MD
[2016-12-22] MEDS: MYCAMINE 100 MG in NS 100 ML IV SCH (16:46)
[2016-12-22] MEDS: CATAPRES-TTS-2 TD SCH (17:50)
--- NOTE | 2016-12-22 18:42 | PROGRESS NOTE ---
DATE: 12/22/2016 PRESENT ILLNESS: The patient has fungemia. He had on x-ray infiltrate in the right lower lobe, but I think all of this has cleared. MEDICATIONS: The patient is on micafungin, Levaquin and meropenem. PHYSICAL EXAMINATION: Temperature is 97.7 degrees, pulse 72, respirations 16, blood pressure 140/76. General: This is a fairly healthy-appearing elderly male who is in no acute distress. Head, eyes, ears, nose, and throat: The patient can hear my spoken words. He has poor oral hygiene. The patient is missing most of his teeth. He has some eschar like material on his tongue. Lungs: Clear to auscultation. Cardiovascular: Heart rate is regular. Abdomen: Soft and nontender. LAB AND X-RAY: The blood cultures are growing Destiny parapsilosis. Also the catheter tip is growing yeast. CBC shows a white count of 5750, hemoglobin 12.7, and platelet count 119,000, creatinine is 1.1. GFR is greater than 60. The patient's AST is 69. ASSESSMENT AND PLAN: Patient has a Destiny parapsilosis fungemia. My plan is to treat him with fluconazole 400 mg p.o. daily for a total of 14 days. The patient's comorbidities include chronic obstructive disease, alcoholism and cigarette smoking. The time that the patient got micafungin to treat his infection would also count toward the 14 days of total treatment of the fungemia with fluconazole now and micafungin earlier. The patient has had 2 days of treatment with micafungin. Therefore, he will have 12 more days of treatment with fluconazole. cc: Zak Garvin MD
--- NOTE | 2016-12-22 19:39 | PROGRESS NOTE ---
DATE: 12/22/2016 SUBJECTIVE: The patient is resting comfortably. He is more awake today. He had a swallow evaluation and was started on a pureed diet. OBJECTIVE: Vital Signs: Temperature 97.7 degrees, blood pressure 140/76, heart rate 72, respirations 16 O2 saturations 100% on 2 L nasal cannula. General: This is a chronically ill- appearing, elderly male, lying in bed, in no acute distress. Heart: S1, S2. Normal. Regular rate and rhythm. Lungs: Coarse breath sounds bilaterally. No crackles. Abdomen: Positive bowel sounds. Soft, nontender, nondistended. Extremities: No edema. No cyanosis. No calf tenderness. Neurologic: The patient is alert. He is able to move all 4 extremities. LABS: Sodium 146, potassium 3.6, chloride 104, CO2 31, BUN 40, creatinine 1.1. Glucose 101. AST 69, ALT 36. ASSESSMENT: 1. Fungemia. Continue on micafungin. 2. Encephalopathy. Improved. We will continue to monitor for improvement. 3. Pneumonia with a right upper lobe cavitary lesion. Continue on Merrem. Pulmonary and ID are following. 4. Hypernatremia. We will start the patient on D5W. 5. Severe protein calorie malnutrition. The patient has been started on a pureed diet today. Hopefully we will be able to discontinue the Clinimix soon. 6. Thrombocytopenia. Will continue to monitor the patient's platelet count closely. 7. Atrial fibrillation. Rate controlled. On IV metoprolol. cc: Manasa Mccoy MD MTDArjun
[2016-12-22] MEDS: DIFLUCAN PO SCH (23:18)
[2016-12-22] MEDS: HALDOL IM PRN (23:19)
[2016-12-23] MEDS: LASIX IV SCH ×2 (02:45→14:31)
[2016-12-23] MEDS: CLINIMIX E 4.25%-5% SOLUTION 1,000 ML IV SCH ×2 (03:06→14:39)
[2016-12-23] MEDS: XOPENEX NEB INH SCH ×6 (03:54→23:09)
[2016-12-23] MEDS: D5W 1,000 ML IV SCH (05:51)
--- NOTE | 2016-12-23 07:19 | Diag Imaging Result Doc PS360 ---
EXAM: CHEST-PORTABLE HISTORY: dyspnea TECHNIQUE: Portable COMPARISON: 12/21/2016 FINDINGS: The lungs are well expanded. The heart is not enlarged. Mild increased interstitial markings in the lower right lung. No pleural effusions identified. The overall appearance is similar to that of the prior exam. IMPRESSION: Stable chest Electronically signed by James Grossman 12/23/2016 7:17 AM
[2016-12-23 07:46] LABS: HEMATOCRIT 37.7 % (42.0-52.0); HEMOGLOBIN 12.7 g/dL (14.0-18.0); MCH 34.8 PG (27-31); MCHC 33.7 g/dL (33-37); MCV 103.3 FL (81-99); MPV 11.8 FL (7.4-10.4); RBC 3.65 XMIL (4.7-6.1)
[2016-12-23] MEDS: HALDOL IM PRN ×3 (07:49→20:42)
[2016-12-23 08:01] LABS: AGAP 10; ALBUMIN 2.7 g/dL (3.5-5.0); ALKALINE PHOSPHATASE 88 U/L (32-122); BUN 41 mg/dL (8-22); CALCIUM 8.7 mg/dL (8.8-10.2); CHLORIDE 100 mmol/L (98-107); COSMO 290; GOT 54 U/L (10-34); GPT 32 U/L (10-44); POTASSIUM 3.7 mmol/L (3.5-5.1); SODIUM 140 mmol/L (136-145); TCO2 30 mmol/L (25-35); TOTAL BILIRUBIN 0.49 mg/dL (0.20-1.00); TOTAL PROTEIN 6.4 g/dL (6.3-8.3)
[2016-12-23] MEDS: DIFLUCAN PO SCH (08:17)
[2016-12-23] MEDS: LOVENOX SUBQ SCH (08:17)
[2016-12-23] MEDS: MUCOMYST 20% INH SCH ×2 (08:25→19:35)
[2016-12-23] MEDS: SODIUM CHLORIDE 0.9% INJ SCH (09:30)
[2016-12-23] MEDS: PROTONIX IV SCH (09:30)
[2016-12-23] MEDS: LIPOSYN 20% 250 ML IV SCH (12:09)
--- NOTE | 2016-12-23 16:36 | PROGRESS NOTE ---
DATE: 12/23/2016 PRESENT ILLNESS: The patient has a Destiny parapsilosis fungemia. He previously had a right lower lobe pneumonia, but I think this has all cleared. MEDICATIONS: The patient had been on micafungin. Yesterday, I started him on fluconazole. PHYSICAL EXAMINATION: Vital Signs: Temperature is 97.7 degrees, pulse 91, respirations 21, blood pressure 146/104. General: This is a somewhat ill-appearing, elderly male. He is in no acute distress. Lungs: Clear to auscultation. Cardiovascular: Regular heart rate. Abdomen: Soft and nontender. Neurologic: The patient is alert. He can move his extremities. There is no tremor. LABORATORY AND X-RAY: Chest x-ray shows no definite infiltrate. CBC shows a white count of 7630, hemoglobin 12.7, and platelet count 167,000. Creatinine is 1. GFR is greater than 60. ASSESSMENT AND PLAN: The patient has a Destiny fungemia. My plan is to treat with fluconazole for a total of 14 days. I have ordered repeat blood cultures today also. COMORBIDITIES: He has chronic obstructive pulmonary disease, alcoholism and cigarette smoking. cc: Zak Garvin MD
--- NOTE | 2016-12-23 20:09 | PROGRESS NOTE ---
DATE: 12/23/2016 SUBJECTIVE: The patient is resting comfortably in bed. He is more awake and alert today. No acute events noted overnight. OBJECTIVE: Vital Signs: Temperature 97 degrees, blood pressure 146/74, heart rate 91, respirations 20, O2 saturation 95% on room air on 3 L nasal cannula. General : This is an elderly male, lying in bed, in no acute distress. Heart: S1, S2 normal. Regular rate and rhythm. Lungs: Equal air entry bilaterally. No crackles. No rales. Abdomen : Positive bowel sounds. Soft, nontender, nondistended. Extremities: No edema. No cyanosis. No calf tenderness. Neurologic: The patient is awake and alert. Oriented to person and place. LABS: White blood cell count 7.6, hemoglobin 12, hematocrit 37, platelets 167, 000. Sodium 140, potassium 3.7, chloride 100, CO2 30, BUN 41, creatinine 1, glucose 111. Chest X-ray: Lungs are well-expanded. Stable chest. ASSESSMENT AND PLAN: 1. Fungemia. The patient has been switched to oral fluconazole by Dr. Garvin. 2. Right lower lobe pneumonia. Improved. A CT of the chest has been ordered by . 3. Encephalopathy. Slowly improving. 4. Severe protein calorie malnutrition. The patient is now on a mechanical soft diet. Ensure with each meal. 5. Atrial fibrillation. The patient is currently rate controlled. We will switch the patient to p.o. Cardizem. 6. Hypernatremia. Resolved. We will discontinue the D5W. 7. Chronic obstructive pulmonary disease. Continue with bronchodilator therapy and supplemental oxygen. 8. Deep vein thrombosis prophylaxis. Continue on Lovenox. 9. We will consult Physical Therapy. We will also consult Activity Specialist for discharge planning. The patient will likely require rehabilitation placement. cc: Manasa Mccoy MD MTDD
[2016-12-24] MEDS: XOPENEX NEB INH SCH ×6 (03:54→23:13)
[2016-12-24 06:38] LABS: AGAP 11; ALBUMIN 2.6 g/dL (3.5-5.0); ALKALINE PHOSPHATASE 90 U/L (32-122); BASO% 0.3 % (0.0-0.8); BUN 34 mg/dL (8-22); CALCIUM 9.3 mg/dL (8.8-10.2); CHLORIDE 99 mmol/L (98-107); COSMO 287; EOS# 0.55 X1000 (0.0-0.7); EOS% 6.2 % (0.0-10.0); GOT 54 U/L (10-34); GPT 37 U/L (10-44); HEMATOCRIT 36.4 % (42.0-52.0); HEMOGLOBIN 12.4 g/dL (14.0-18.0); IMM GRAN# 0.04 X1000 (0.0-0.04); IMM GRAN% 0.5 % (0.0-0.5); LYMPH# 2.33 X1000 (1.2-3.4); LYMPH% 26.3 % (20.5-51.1); MANUAL DIFF NEEDED? YES; MCH 34.3 PG (27-31); MCHC 34.1 g/dL (33-37); MCV 100.8 FL (81-99); MONO% 10.1 % (1.7-9.3); NEUT% 56.6 % (42.2-75.2); PLT 223 X1000 (130-400); POTASSIUM 3.9 mmol/L (3.5-5.1); RBC 3.61 XMIL (4.7-6.1); SODIUM 140 mmol/L (136-145); TCO2 30 mmol/L (25-35); TOTAL BILIRUBIN 0.45 mg/dL (0.20-1.00); TOTAL PROTEIN 6.2 g/dL (6.3-8.3)
--- NOTE | 2016-12-24 06:49 | EKG Report ---
Test Performed on : 12/24/2016 06:06:43 AM Test Reason : afib Blood Pressure : / mmHG Vent. Rate : 091 BPM Atrial Rate : 091 BPM P-R Int : 144 ms QRS Dur : 110 ms QT Int : 374 ms P-R-T Axes : 084 067 075 degrees QTc Int : 460 ms Normal sinus rhythm. Nonspecific ST abnormality Abnormal ECG When compared with ECG of 06-DEC-2016 11:23, ST no longer depressed in Lateral leads Nonspecific T wave abnormality no longer evident in Inferior leads Nonspecific T wave abnormality, improved in Anterolateral leads QT has lengthened Confirmed by Venu Carvajal MD ([id number]) on 12/25/2016 3:19:44 PM
[2016-12-24 07:07] LABS: BANDS 2 % (0-1); EOS 10 % (1-10); LYMPHS 26 % (21-51); MONO 2 % (1-9)
[2016-12-24] MEDS: HALDOL IM PRN ×3 (07:29→22:38)
[2016-12-24] MEDS: MUCOMYST 20% INH SCH ×2 (08:08→19:22)
--- NOTE | 2016-12-24 08:33 | Diag Imaging Result Doc PS360 ---
EXAM: CT THORAX W/O CONTRAST INDICATION: f/u cavitary pneumonia TECHNIQUE: Dose reduction protocol was used. COMPARISON: 12/14/2016 FINDINGS: The right upper lobe cavitary lesion seen on the previous study is approximately stable in size measuring up to 2.4 x 2.0 cm axially (2.3 x 2.1 cm previously). The central cavitation is less prominent as compared to the previous study. There was a trace right pleural fluid collection on the previous study that has largely resolved. Right basilar atelectasis has improved. Milder atelectasis +/- infiltrate in the left lower lobe predominantly at the base is approximately stable. The mucoid debris in the right lower lobe bronchi has improved. There is only a small amount of mucoid debris in the right mainstem bronchus that remains. The heart is stable. There are calcified hilar and mediastinal lymph nodes indicating prior granulomatous disease. There is no new lymphadenopathy. IMPRESSION: 1.Approximately stable cavitary lesion in the right upper lobe in size. However, the cavitation is less prominent than on the previous study. 2.Improvement of the tiny right pleural effusion and right basilar atelectasis seen on the previous study with less mucoid debris in the right bronchi. 3.Left lower lobe atelectasis and/or infiltrate is approximately stable. Electronically signed by Leonel Cortes 12/24/2016 8:31 AM
[2016-12-24] MEDS: CARDIZEM CD PO SCH (09:44)
[2016-12-24] MEDS: LOVENOX SUBQ SCH (09:44)
[2016-12-24] MEDS: DIFLUCAN PO SCH (09:44)
[2016-12-24] MEDS: PROTONIX IV SCH (09:45)
[2016-12-24] MEDS: SODIUM CHLORIDE 0.9% INJ SCH (09:45)
--- NOTE | 2016-12-24 13:34 | PROGRESS NOTE ---
DATE: 12/24/2016 SUBJECTIVE: Patient was asleep. He did arouse. He is more alert today. OBJECTIVE: Vital Signs: Temperature 98.8 degrees, pulse 90, respirations 18, blood pressure 119/77. LABORATORY: Hematology WBC 8.87, hemoglobin 12.4, hematocrit 36.4, MCV 100.8, platelets 223,000. Chemistry: Sodium 140, potassium 3.9, chloride 99, CO2 30, BUN 34, creatinine 1.02. Calcium 9.3. Total bilirubin 0.45. AST 54, ALT 37, alkaline phosphatase 90. ASSESSMENT AND PLAN: 1. Right lower lobe pneumonia. 2. Fungemia. He is receiving antibiotics and following with Dr. Garvin and Dr. Alvarez. 3. Encephalopathy is improving. He is more awake and alert the last several days. Protein calorie malnutrition. His diet has been advanced. Follow strict aspiration precautions. Recommend he keep head of bed elevated after eating. We will continue to be available as far as GI is concerned, as needed. If other GI workup is needed please re-consult GI. I have discussed this case with Dr. Nevarez. Dictated by RUIZ James for Rell Nevarez MD cc: RIUZ Jhaveri MD
--- NOTE | 2016-12-24 14:37 | PROGRESS NOTE ---
DATE: 12/24/2016 PRESENT ILLNESS: The patient has a Destiny parapsilosis fungemia. The patient has a right upper lobe cavitary lesion which may be due to Destiny as well. MEDICATIONS: The patient was started on fluconazole yesterday. This is day 1 of treatment. PHYSICAL EXAMINATION: Vital Signs: Temperature is 98.8 degrees. Pulse 90. Respirations 18. Blood pressure 119/77. General: This is a somewhat ill-appearing, elderly male. He is in no acute distress. He was seemed somewhat confused. Lungs: Clear to auscultation. Cardiovascular: Regular heart rate. Abdomen: Soft and nontender. Neck: No stiffness. Neurologic: The patient is awake. He can move his extremities. LABORATORY AND X-RAY: CT scan of the chest shows a right upper lobe cavitary disease and a left lower lobe infiltrate versus atelectasis. There also calcified hilar nodes. AST is 54. Creatinine is 1. GFR is greater than 60. CBC shows a white count of 8870, hemoglobin 12.4, and platelet count of 223,000. Repeat blood cultures are pending. ASSESSMENT AND PLAN: 1. The patient has a Destiny fungemia and the same organism may also be causing his cavitary lung disease, although I think there is a good chance some other organism than Destiny is responsible for that or it possibly might even be a malignancy. The plan is to continue treating Destiny fungemia with fluconazole and then we can repeat the x-ray or CT scan to see if the cavitary lesion and also in the left base, there may be some infiltrates as well to see if they have cleared. 2. Comorbidities: The patient has COPD, alcoholism and cigarette smoking. cc: Zak Garvin MD
--- NOTE | 2016-12-24 17:14 | PROGRESS NOTE ---
DATE: 12/24/2016 SUBJECTIVE: This morning Mr. Castellanos referred to be doing pretty fine. Denies any acute complaint. OBJECTIVE: Vitals: Blood pressure is 142/84, pulse of 88, respirations 20, temperature 97.5 degrees. General: Mr. Castellanos 66-year-old male. He is in bed, not seemingly distressed. HEENT: Mucosa is pink and moist. Anicteric. Acyanotic. Neck: Supple. Chest: Air entry is bilaterally reduced. There is a few bibasilar crepitations. Cardiovascular: Regular rate and rhythm. Abdomen: Soft, nontender. Extremities: No pedal edema. HOME CARE MANAGER: Patient is awake, alert, continues to be disoriented to place and to time. Patient will follow some basic commands but every now and then he will just talk out of context. LABORATORY DATA: Has been reviewed. Hemoglobin and hematocrit is 12.4, 36.4 and platelet count normal. Chemistry is also reviewed completely normal. ASSESSMENT: 1. Fungemia. Patient is currently on oral fluconazole and is being followed by Dr. Garvin. 2. Right lower lobe pneumonia with cavitary lesion suspicious to be probably the same Destiny causing the pneumonia. 3. Global encephalopathy progressively improving. 4. Severe protein calorie malnutrition. Will continue with supplements. 5. Atrial fibrillation currently rate control on the p.o. Cardizem. Due to fall risk patient has not been on any anticoagulation. 6. Chronic obstructive pulmonary disease stable. 7. Generalized weakness and deconditioning. Patient will continue will physical therapy. Mr. Castellanos is gradually getting better. We are going to continue with the antifungal medication for now. Antibiotics have been discontinued. He seems to be tolerating his mechanical soft diet. Will continue working with the social sciences lecturer for placement for him. We are going to discontinue the Prather catheter today. cc: Arron Diehl MD
[2016-12-25] MEDS: XOPENEX NEB INH SCH ×6 (03:27→22:52)
[2016-12-25 06:53] LABS: MANUAL DIFF NEEDED? NO
[2016-12-25 07:03] LABS: BASO% 0.6 % (0.0-0.8); EOS# 0.32 X1000 (0.0-0.7); EOS% 3.4 % (0.0-10.0); HEMATOCRIT 36.6 % (42.0-52.0); HEMOGLOBIN 12.4 g/dL (14.0-18.0); IMM GRAN# 0.05 X1000 (0.0-0.04); IMM GRAN% 0.5 % (0.0-0.5); LYMPH# 1.65 X1000 (1.2-3.4); LYMPH% 17.5 % (20.5-51.1); MCH 34.5 PG (27-31); MCHC 33.9 g/dL (33-37); MCV 101.9 FL (81-99); MONO# 0.98 X1000 (0.11-0.59); MONO% 10.4 % (1.7-9.3); MPV 10.4 FL (7.4-10.4); NEUT% 67.6 % (42.2-75.2); PLT 291 X1000 (130-400); RBC 3.59 XMIL (4.7-6.1)
[2016-12-25 07:09] LABS: AGAP 12; ALBUMIN 2.7 g/dL (3.5-5.0); ALKALINE PHOSPHATASE 88 U/L (32-122); BUN 29 mg/dL (8-22); CALCIUM 8.8 mg/dL (8.8-10.2); CHLORIDE 98 mmol/L (98-107); COSMO 285; GOT 37 U/L (10-34); GPT 28 U/L (10-44); POTASSIUM 3.6 mmol/L (3.5-5.1); SODIUM 140 mmol/L (136-145); TCO2 30 mmol/L (25-35); TOTAL BILIRUBIN 0.56 mg/dL (0.20-1.00); TOTAL PROTEIN 6.7 g/dL (6.3-8.3)
[2016-12-25] MEDS: MUCOMYST 20% INH SCH ×2 (08:22→19:04)
[2016-12-25] MEDS: DIFLUCAN PO SCH (09:30)
[2016-12-25] MEDS: SODIUM CHLORIDE 0.9% INJ SCH (09:31)
[2016-12-25] MEDS: LOVENOX SUBQ SCH (09:31)
[2016-12-25] MEDS: CARDIZEM CD PO SCH (09:31)
[2016-12-25] MEDS: PROTONIX IV SCH (09:31)
--- NOTE | 2016-12-25 13:52 | PROGRESS NOTE ---
DATE: 12/25/2016 SUBJECTIVE: Today Mr. Castellanos referred to be doing a little better, denies any complaints, continues to be confused. OBJECTIVE: Vital signs: Blood pressure is 141/81, pulse 88, respirations 16, temperature 97.6, the patient is saturating 92% on room air. Mr. Castellanos is a 66-year-old male. He is in bed. He does not seem to be in any distress. Mucosa is pink and moist. He is not in any restraint. Chest with a few bibasilar crepitations. Cardiovascular: Regular rate and rhythm. Abdomen is soft, nontender. Extremities: No pedal edema. PUPIL PERSONNEL WORKER: The patient is awake and alert, follows some basic commands, but he is confused. He does not know where he is. He does not know the time, either. DIAGNOSTIC DATA: Hemoglobin is 12.4, other cell lines are normal. Chemistry is reviewed and completely normal. ASSESSMENT: 1. Fungemia. The patient continues on the oral fluconazole. 2. Right lower lobe pneumonia with cavitary lesions, suspicious to be oliver pneumonia. We will continue with the fluconazole and follow up with further recommendations from ID. 3. Global encephalopathy, progressively improving. 4. Severe protein calorie malnutrition. We will continue with supplements. 5. Atrial fibrillation, currently rate controlled on p.o. Cardizem. The patient is not on anticoagulation because of fall risk. 6. Chronic obstructive pulmonary disease, stable. Not in exacerbation. 7. Generalized weakness and deconditioning. The patient will continue physical therapy. PLAN: I think that Mr. Castellanos is progressively getting better. Mentation is progressively improving. This is going to be waxing and waning because I think he does not have very good cognition to start with before he developed the acute illness. I think he has an underlying dementia attributed to alcohol abuse or age related and with acute illness, this has just gotten worse, and his progress will be a very slow one. So I think Mr. Castellanos is probably stable enough from hospital standpoint. He probably has derived the most benefit he would get in acute hospitalization, and he now needs to be in a alf or rehab to help him improve his physical rehabilitation and his cognition. director workers compensation is working on his placement. Of note, Mr. Castellanos lives with his sister who has a disabled child, herself, and the sister has made it clear that she would not be able to take care of Mr. Castellanos if he is discharged home. cc: Arron Diehl MD
[2016-12-26] MEDS: XOPENEX NEB INH SCH ×6 (03:29→22:50)
[2016-12-26 07:37] LABS: AGAP 11; ALBUMIN 2.6 g/dL (3.5-5.0); ALKALINE PHOSPHATASE 76 U/L (32-122); BUN 22 mg/dL (8-22); CALCIUM 8.7 mg/dL (8.8-10.2); CHLORIDE 96 mmol/L (98-107); COSMO 277; GOT 21 U/L (10-34); GPT 21 U/L (10-44); POTASSIUM 3.9 mmol/L (3.5-5.1); SODIUM 137 mmol/L (136-145); TCO2 30 mmol/L (25-35); TOTAL BILIRUBIN 0.54 mg/dL (0.20-1.00); TOTAL PROTEIN 6.4 g/dL (6.3-8.3)
[2016-12-26] MEDS: LOVENOX SUBQ SCH (08:10)
[2016-12-26] MEDS: DIFLUCAN PO SCH (08:10)
[2016-12-26] MEDS: CARDIZEM CD PO SCH (08:10)
[2016-12-26] MEDS: MUCOMYST 20% INH SCH ×2 (08:57→19:15)
[2016-12-26] MEDS: PROTONIX IV SCH (09:31)
--- NOTE | 2016-12-26 15:40 | PROGRESS NOTE ---
DATE: 12/26/2016 SUBJECTIVE: This patient states that he is doing a little bit better. He denies any pain or shortness of breath. Family member is at the bedside, his sister. He has been answering most of my questions, but he is still a little bit confused, mostly with time, and with some of my questions. I had a conversation with his sister. Apparently, she lives in front of his house, and he has been living by himself, but I do not think he is going to be able to take care of himself, and no family members can take care of him, so a group social worker has been involved. OBJECTIVE: Vital Signs: Temperature 98.4 degrees, pulse 74, respiratory rate 16, blood pressure 121/75, oxygen saturation 100% on 2 L of nasal cannula. HEENT: Normocephalic. No trauma. PERRLA. Neck: Supple. No JVD. No masses. Central trachea. Chest: Clear to auscultation. Mild rales at the bases. Cardiovascular: RRR. Abdomen: Soft, nontender, nondistended. Extremities: No edema. Neurological: The patient is alert and oriented x2. He knows he is in the hospital. He does not know which one. He knows he is in [place]. He does not know who is the vice president of consulting services. LABORATORY STUDIES: Sodium 137, potassium 3.9, chloride 96, bicarbonate 30, BUN 22, creatinine 1.1, glucose 100. Calcium 8.7. Albumin 2.6. ASSESSMENT AND PLAN: 1. Fungemia. Continue with the same management. Infectious Disease department following this patient closely. 2. Right lower lobe pneumonia with cavitary lesion, suspicious to be Destiny pneumonia. We will continue with fluconazole, and like I mentioned before, Infectious Disease department following. 3. Global encephalopathy. This is much better. The sister who is at the bedside, corroborates this information. Probably, this is his baseline. He has a past medical history of alcohol abuse. Apparently, he is an alcoholic, and probably also he has underlying dementia. As per the sister, before coming to the hospital, this patient was having some confusion at home as well. 4. Severe protein calorie malnutrition. Continue with supplements. 5. Atrial fibrillation. Currently, rate controlled. Continue with the same management. No anticoagulation because of fall risk. 6. Chronic obstructive pulmonary disease, stable. Not in exacerbation. 7. Generalized weakness and deconditioning. Continue physical therapy. Like I mentioned before, no family member can take care of him, and I do not think that he can take care of himself. youth accommodation support worker on board. We will try to find placement for rehabilitation. I think he should go to an LTAC. cc: Michael Villafuerte MD
[2016-12-26] MEDS: TYLENOL PO PRN (22:49)
[2016-12-27] MEDS: XOPENEX NEB INH SCH ×4 (03:25→15:42)
[2016-12-27 07:14] LABS: AGAP 11; ALBUMIN 2.5 g/dL (3.5-5.0); ALKALINE PHOSPHATASE 72 U/L (32-122); BUN 21 mg/dL (8-22); CALCIUM 8.9 mg/dL (8.8-10.2); CHLORIDE 97 mmol/L (98-107); COSMO 273; GOT 24 U/L (10-34); GPT 19 U/L (10-44); POTASSIUM 4.2 mmol/L (3.5-5.1); SODIUM 135 mmol/L (136-145); TCO2 27 mmol/L (25-35); TOTAL BILIRUBIN 0.48 mg/dL (0.20-1.00); TOTAL PROTEIN 7.1 g/dL (6.3-8.3)
[2016-12-27] MEDS: MUCOMYST 20% INH SCH ×2 (07:49→19:35)
[2016-12-27] MEDS: DIFLUCAN PO SCH (09:58)
[2016-12-27] MEDS: CARDIZEM CD PO SCH (09:59)
[2016-12-27] MEDS: PROTONIX IV SCH (09:59)
[2016-12-27] MEDS: LOVENOX SUBQ SCH (09:59)
[2016-12-27] MEDS: SODIUM CHLORIDE 0.9% INJ SCH (09:59)
--- NOTE | 2016-12-27 15:18 | PROGRESS NOTE ---
DATE: 12/27/2016 PRESENT ILLNESS: The patient has a Destiny parapsilosis fungemia. It is felt that it may be due to an intravenous catheter due to the fact that the catheter tip grew Destiny parapsilosis as well. MEDICATIONS: The patient is on fluconazole. This is day 4 of treatment with it. PHYSICAL EXAMINATION: Vital Signs: Temperature is 98.6 degrees, pulse 78, respirations 14, blood pressure 123/82. General: This is a fairly healthy-appearing, elderly male. He is in no acute distress. He had been confused but today he was alert and coherent. Lungs: Showed some rhonchi in the right upper and middle lobes. The left lung was clear. Abdomen: Soft and nontender. Cardiovascular: Heart rate was regular. LAB AND X-RAY: The patient's CBC showed a white count of 9444, hemoglobin 12.4, and platelet count is 291,000. Creatinine is 1.0 and the GFR is greater than 60. ASSESSMENT AND PLAN: The patient has fungemia with possible hematogenous involvement of the patient's pulmonary cavity. The plan is to continue treatment with fluconazole p.o. COMORBIDITIES: Include COPD, alcoholism and cigarette smoking. cc: Zak Garvin MD
--- NOTE | 2016-12-27 15:32 | PROGRESS NOTE ---
DATE: 12/27/2016 HISTORY OF PRESENT ILLNESS: This patient has oliver parapsilosis fungemia which has extended to pulmonary infiltrates due to hematogenous spread. MEDICATIONS: This is day 6 of his treatment on fluconazole 400 mg p.o. daily. OBJECTIVE: Vital signs: Temperature is 98.6, pulse 78, respiratory rate 14, blood pressure 123/82, O2 saturation is 100% on 2 L nasal cannula. General: This is a somewhat ill-appearing elderly male. He is in no acute distress. Neurologic: He is awake and alert. Head is atraumatic and normocephalic. Neck is supple. No masses. Lungs are clear except for some mild rhonchi to right upper lobe and right middle lung, diminished in the bases. Cardiovascular: Regular rate and rhythm. Abdomen: Soft, nontender, nondistended. Extremities without edema. He moves all extremities well. Some mild weakness due to deconditioning. DIAGNOSTIC DATA: No x-ray studies today. CBC shows white count is 9.44, hemoglobin 12.4, platelet count 291,000. Creatinine is 1. Repeat blood cultures show no growth. ASSESSMENT AND PLAN: This is a patient with oliver fungemia which has spread to pulmonary infiltrates due to hematogenous spread. He is responding well to fluconazole p.o., and we will continue this treatment for approximately 14 days due to the fungemia and may be longer depending on followup x-ray or CT to be done in the future. COMORBIDITIES: This patient has COPD, alcoholism and history of cigarette smoking. Dictated by RUIZ Piper for Zak Garvin MD cc: RUIZ Piper MD
--- NOTE | 2016-12-27 16:47 | PROGRESS NOTE ---
DATE: 12/27/2016 SUBJECTIVE: The patient has no focal complaints. OBJECTIVE: Vital signs: Blood pressure 127/81, heart rate of 88, respiratory rate 16, temperature 98 degrees, 100% saturation on 2 L. Cardiovascular: Regular rate and rhythm. Pulmonary: Bilateral breath sounds clear to auscultation. Gastrointestinal: Soft, nontender, nondistended. Bowel sounds are positive. Extremities: No clubbing or cyanosis. Lymphatics: No peripheral edema. Neurological: Nonfocal. LABORATORY DATA: Clinically, he seems like he is doing well. Lab, nothing new today. PROBLEM LIST: 1. Fungemia or candidemia associated with line. He is on Diflucan, per Dr. Garvin, which it was positive for Destiny parapsilosis. The repeat blood culture is clear. 2. Right lower lobe pneumonia. He is on fluconazole. Again, his p.o. dose, I am going to say, is on day 5 of that, I think of 2 weeks. His last blood culture, though, positivity was on December 19. 3. Encephalopathy. He seems to be doing pretty well. He is mentating okay. He is not in restraints. He seems to be fairly stable. I do think he has some underlying cognitive deficits related to chronic alcohol use versus other primary type of dementia. He seems to be doing okay. 4. Severe protein-calorie malnutrition, controlled on supplements. 5. Atrial fibrillation. He is on rate-controlling medications and no anticoagulation. 6. Chronic obstructive pulmonary disease, appears to be stable. DISPOSITION: 1. The disposition is going to be difficult. LTAC is going to be difficult. He does meet criteria at this point. 2. He probably just needs some long-term care, so we are working on trying to set that up. cc: Fernando Naranjo MD
--- NOTE | 2016-12-27 17:57 | PROGRESS NOTE ---
DATE: 12/27/2016 SUBJECTIVE: The patient denies complaints today. He states he is eating without difficulty. OBJECTIVE: Vital Signs: Temperature 98.1 degrees, pulse 88, respirations 16, blood pressure 127/81. DIAGNOSTIC RESULTS/LABORATORY: Hematology 12/25/2016: WBC 9.44, hemoglobin 12.4, hematocrit 36.6, MCV 101.9, platelets 291,000. Chemistry 12/27/2016: Sodium 135, potassium 4.2, chloride 97, CO2 27, BUN 21, creatinine 1.0, glucose 97. ASSESSMENT AND PLAN: 1. Right lower lobe pneumonia. 2. Fungemia, followed by Dr. Garvin. 3. Encephalopathy, which is improving. He is more alert today. 4. Protein-calorie malnutrition, He has started eating without difficulty. 5. Dysphagia. The patient is currently tolerating a mechanical soft diet with thickened liquids. GI will continue to follow and be available as needed. Keep head of bed elevated, or sit up in the chair during eating. Follow strict aspiration precautions and anti-reflux measures. I have discussed this case with Dr. Nevarez. Dictated by RUIZ James for Rell Nevarez MD cc: RUIZ Jhaveri MD
[2016-12-27] MEDS: ALBUTEROL NEB INH SCH ×2 (19:35→23:40)
[2016-12-27] MEDS: SEROQUEL PO PRN (20:34)
[2016-12-28] MEDS: ALBUTEROL NEB INH SCH ×6 (03:30→22:29)
[2016-12-28 06:28] LABS: HEMATOCRIT 33.6 % (42.0-52.0); HEMOGLOBIN 11.2 g/dL (14.0-18.0); MCH 34.4 PG (27-31); MCHC 33.3 g/dL (33-37); MCV 103.1 FL (81-99); MPV 9.4 FL (7.4-10.4); RBC 3.26 XMIL (4.7-6.1)
[2016-12-28 06:42] LABS: AGAP 9; ALBUMIN 2.7 g/dL (3.5-5.0); ALKALINE PHOSPHATASE 70 U/L (32-122); BUN 17 mg/dL (8-22); CALCIUM 8.7 mg/dL (8.8-10.2); CHLORIDE 98 mmol/L (98-107); COSMO 275; GOT 25 U/L (10-34); GPT 18 U/L (10-44); POTASSIUM 3.7 mmol/L (3.5-5.1); SODIUM 137 mmol/L (136-145); TCO2 30 mmol/L (25-35); TOTAL BILIRUBIN 0.55 mg/dL (0.20-1.00); TOTAL PROTEIN 7.4 g/dL (6.3-8.3)
[2016-12-28] MEDS: MUCOMYST 20% INH SCH ×2 (07:32→19:21)
[2016-12-28] MEDS ORDERED: NS 1,000 ML ONE (07:39)
[2016-12-28] MEDS: LOVENOX SUBQ SCH (08:53)
[2016-12-28] MEDS: CARDIZEM CD PO SCH (08:53)
[2016-12-28] MEDS: DIFLUCAN PO SCH (08:53)
[2016-12-28] MEDS: TYLENOL PO PRN (08:54)
--- NOTE | 2016-12-28 10:46 | PROGRESS NOTE ---
DATE: 12/28/2016 SUBJECTIVE: This patient states that he is doing better. No acute events overnight. No family members at the bedside. geriatric social worker is trying to find placement for this patient. I do believe he should go to long-term care. OBJECTIVE: Vital Signs: Temperature 97.8 degrees, pulse 77, respiratory rate 18, blood pressure 135/83, oxygen saturation 100% on room air. HEENT: Head normocephalic. No trauma. PERRLA. Neck: Supple. There is no masses. Central trachea. Chest: Clear to auscultation. Mild rales at the bases. Cardiovascular: Regular rate and rhythm. Abdomen: Soft, nontender, nondistended. Extremities: No edema. No clubbing. No cyanosis. Neurological Examination: The patient is alert and oriented x2. He knows he is in the hospital and he is able to say which one on and off. He knows he is in [place]. He had some episodes of confusion. LABORATORY: WBC 8.2, hemoglobin 11.2, hematocrit 33.6, platelet 345,000. Sodium 137, potassium 3.7, chloride 98, bicarbonate 30. BUN 17, creatinine 0.9, glucose 98, calcium 8.7, albumin 2.7. ASSESSMENT AND PLAN: 1. Fungemia. Continue with the same management. Infectious Disease Department following this patient closely. 2. Right lower lobe pneumonia with cavitary lesion, suspicious to be Destiny pneumonia. We will continue with fluconazole. 3. Global encephalopathy. This is much better. No family members at the bedside. I think he has an underlying dementia and apparently he was an alcoholic before as well. 4. Severe protein calorie malnutrition. Continue with supplements. 5. Dysphagia. Actually, this patient is tolerating food. 6. Atrial fibrillation, currently rate controlled. Continue with the same management. No anticoagulation because of fall risk. 7. Chronic obstructive pulmonary disease, stable. Not in exacerbation. 8. Generalized weakness and deconditioning. Continue with physical therapy. 9. Possible dementia and previous alcoholism, aware. cc: Michael Villafuerte MD
[2016-12-28] MEDS: PROTONIX IV SCH (12:05)
--- NOTE | 2016-12-28 19:31 | PROGRESS NOTE ---
DATE: 12/28/2016 PRESENT ILLNESS: The patient has a Destiny parapsilosis fungemia. It is felt that this is due to an intravenous catheter as manifested by the fact that the catheter tip also grew Destiny parapsilosis. MEDICATIONS: This is day 5 of treatment with fluconazole. PHYSICAL EXAMINATION: Vital signs: Temperature is 97.8, pulse 82, respirations 14, blood pressure 135/83. General: This is a fairly healthy appearing elderly male who is in no acute distress. Lungs: Clear to auscultation. Cardiovascular: Regular heart rate. Abdomen: Soft and nontender. Integument: No rash noted. LAB AND X-RAY: The patient has a CBC with a white count of 8270, hemoglobin 11.2, and platelet count 345,000. Creatinine is 0.9. GFR is greater than 60. Liver function studies are normal. ASSESSMENT AND PLAN: The patient has fungemia with possible hematogenous involvement of the patient's lungs. Our plan is to continue p.o. fluconazole. Comorbidities are COPD, alcoholism, and cigarette smoking. cc: Zak Garvin MD
[2016-12-28] MEDS: SEROQUEL PO PRN (22:13)
[2016-12-29] MEDS: ALBUTEROL NEB INH SCH ×6 (03:24→23:03)
[2016-12-29 06:55] LABS: AGAP 10; ALBUMIN 2.8 g/dL (3.5-5.0); ALKALINE PHOSPHATASE 69 U/L (32-122); BUN 15 mg/dL (8-22); CALCIUM 8.9 mg/dL (8.8-10.2); CHLORIDE 98 mmol/L (98-107); COSMO 277; GOT 21 U/L (10-34); GPT 17 U/L (10-44); POTASSIUM 3.7 mmol/L (3.5-5.1); SODIUM 137 mmol/L (136-145); TCO2 29 mmol/L (25-35); TOTAL BILIRUBIN 0.55 mg/dL (0.20-1.00); TOTAL PROTEIN 7.6 g/dL (6.3-8.3)
[2016-12-29] MEDS: MUCOMYST 20% INH SCH ×2 (07:36→19:20)
[2016-12-29] MEDS: DIFLUCAN PO SCH (10:18)
[2016-12-29] MEDS: CARDIZEM CD PO SCH (10:18)
[2016-12-29] MEDS: LOVENOX SUBQ SCH (10:18)
[2016-12-29] MEDS: PROTONIX IV SCH (10:19)
[2016-12-29] MEDS: TYLENOL PO PRN (10:19)
--- NOTE | 2016-12-29 11:17 | PROGRESS NOTE ---
DATE: 12/29/2016 SUBJECTIVE: This patient states that he is doing better. No acute events overnight. No family members at the bedside. emergency service worker is trying to get placement for this patient. OBJECTIVE: Vital Signs: Temperature 97.6 degrees, pulse 94, respiratory rate 18, blood pressure 141/77, oxygen saturation 96% on 2 liters of nasal cannula. HEENT: Normocephalic. No trauma. PERRLA. Neck: Supple. No JVD. No masses. Central trachea. Chest: Clear to auscultation. Mild rales at the bases. Cardiovascular: RRR. Abdomen: Soft, nontender, nondistended. No hepatosplenomegaly. No edema. Neurological: The patient is alert and oriented x2. He knows he is in the hospital, and he is able to say this is [facility]. On and off, he has some episodes of confusion. LABORATORY DATA: Sodium 137, potassium 3.7, chloride 98, bicarbonate 29, BUN 15, creatinine 1, glucose 132, calcium 8.9, albumin 2.8. ASSESSMENT AND PLAN: 1. Fungemia. Continue with the same management. Infectious Disease Department is following this patient closely. I do believe this patient is getting better. 2. Right lower lobe pneumonia with cavitary lesions suspicious to be Destiny pneumonia. We will continue with fluconazole. 3. Global encephalopathy. This is much better. No family members at the bedside. I think he has underlying dementia, and apparently he was an alcoholic before, and this can contribute to this problem. 4. Severe protein-calorie malnutrition. Continue with supplements. 5. Dysphagia. Actually, this patient is tolerating food. 6. Atrial fibrillation, currently rate controlled. Continue with the same management. No anticoagulation because of fall risk. 7. Chronic obstructive pulmonary disease, stable, not in exacerbation. 8. Generalized weakness and deconditioning. Continue physical therapy. 9. Possible dementia and previous alcoholism, aware. cc: Michael Villafuerte MD
--- NOTE | 2016-12-29 15:46 | PROGRESS NOTE ---
DATE: 12/29/2016 SUBJECTIVE: Based on the data collected by my nurse practitioner, Keysha Lynn, and my physical examination, I have arrived at a treatment scheduled for the patient to continue fluconazole for a total of 14 days. The treatment schedule will be in the progress note that my nurse practitioner will be dictating. cc: Zak Garvin MD
--- NOTE | 2016-12-29 16:07 | PROGRESS NOTE ---
DATE: 12/29/2016 PRESENT ILLNESS: Patient is admitted with Destiny parapsilosis fungemia which is thought to be due to a central line IV catheter. MEDICATIONS: Today is day 6 of fluconazole 400 mg p.o. daily, and we will continue with that. PHYSICAL EXAMINATION: Vital Signs: Temp 98.3 degrees, heart rate 74, respiratory rate 14, blood pressure 132/38. General: This is an ill-appearing, elderly gentleman, in no acute distress. Neurologic: He is awake and alert, oriented x2. He knows who he is and where he is but making some inappropriate statements at times. Lungs: Clear to auscultation except for left lower lobe coarse wheeze noted. Respirations are even and nonlabored. Cardiovascular: Regular rate and rhythm with S1, S2 and S3 noted. Edema is trace to bilateral ankles. Abdomen: Soft and nontender with positive bowel sounds noted. Integumentary: No rashes or problems noted. IV site to right forearm is clean and dry with no drainage, redness or swelling. LABS AND X-RAYS: Mr. Castellanos had no CBC today but creatinine is 1.0. GFR is greater than 60. Liver function tests are within normal limits. ASSESSMENT AND PLAN: Mr. Castellanos has fungemia with possible hematogenous involvement of the lungs. We will continue p.o. fluconazole. The previous plans have been discussed with and recommended by Dr. Garvin. COMORBIDITIES: COPD, alcoholism and cigarette smoking. Dictated by RUIZ Piper for Zak Garvin MD cc: RUIZ Piper MD [facility]
[2016-12-29] MEDS: CATAPRES-TTS-2 TD SCH (18:24)
[2016-12-29] MEDS: SEROQUEL PO PRN (21:38)
[2016-12-30] MEDS: ALBUTEROL NEB INH SCH ×4 (03:23→16:14)
[2016-12-30] MEDS: HALDOL IM PRN (05:14)
[2016-12-30 07:15] LABS: AGAP 10; ALBUMIN 2.7 g/dL (3.5-5.0); ALKALINE PHOSPHATASE 62 U/L (32-122); BUN 15 mg/dL (8-22); CALCIUM 9.1 mg/dL (8.8-10.2); CHLORIDE 98 mmol/L (98-107); COSMO 272; GOT 21 U/L (10-34); GPT 15 U/L (10-44); POTASSIUM 3.9 mmol/L (3.5-5.1); SODIUM 136 mmol/L (136-145); TCO2 28 mmol/L (25-35); TOTAL BILIRUBIN 0.56 mg/dL (0.20-1.00); TOTAL PROTEIN 7.5 g/dL (6.3-8.3)
[2016-12-30] MEDS: MUCOMYST 20% INH SCH (07:26)
--- NOTE | 2016-12-30 08:12 | PROGRESS NOTE ---
DATE: 12/30/2016 The patient is being treated for Destiny parapsilosis fungemia. He has had a week of treatment since his first negative blood culture. Dr. Ferguson will be sending the patient home most likely, today, on fluconazole 400 mg daily for another week. I will not see the patient has a scheduled follow up in the office, but I am available to see him on a p.r.n. basis. cc: Zak Garvin MD
[2016-12-30] MEDS: CARDIZEM CD PO SCH (08:48)
[2016-12-30] MEDS: LOVENOX SUBQ SCH (08:48)
[2016-12-30] MEDS: DIFLUCAN PO SCH (08:48)
[2016-12-30] MEDS: PROTONIX IV SCH (09:20)
--- NOTE | 2016-12-30 12:11 | DISCHARGE SUMMARY ---
ADMISSION DATE: 11/21/2016 DISCHARGE DATE: 12/30/2016 CONSULTATIONS: 1. Dr. Alvarez of Cardiology. 2. Dr. Alvarez with Pulmonology. 3. Dr. Nevarez with Gastroenterology. 4. Dr. Garvin with Infectious Disease. PERTINENT PROCEDURES: 1. Initial chest x-ray showed mixed changes from prior, improvement in bibasilar infiltrates, edema, new right upper lobe infiltrate which may suggest pneumonia. 2. Head CT showed no evidence of acute intracranial disease. 3. Chest CT showed right upper lobe nodule with central cavitation. Most likely diagnoses include infection or malignancy. Tiny right pleural effusion with small pericardial effusion, bibasilar atelectasis with small scattered nodular infiltrates, debris within the right lower lobe, pulmonary bronchus which may simply be mucus. 4. Followup chest CT showed approximately stable cavitary lesion in the right upper lobe in size; however, the cavitation is less prominent than on previous study. Improvement in the tiny right pleural effusion and the right basilar atelectasis seen on previous study with left mucoid debris in the right bronchi. Left lower lobe atelectasis and/or infiltrate is stable. DISCHARGE DIAGNOSES: 1. Destiny parapsilosis fungemia. Has 1 week of IV antibiotics. First set of negative blood cultures. He will be sent home on Diflucan 400 mg daily for another week and can see Dr. Garvin on a p.r.n. basis. 2. Right lower lobe pneumonia with cavitary lesion suspicious to be Destiny pneumonia. 3. Global encephalopathy with underlying dementia with alcohol use in the past. This has improved. 4. Severe protein calorie malnutrition. Continue with supplementation. 5. Dysphagia. The patient is now tolerating food. 6. Atrial fibrillation, rate controlled. The patient is not on any anticoagulation because of fall risk. 7. Chronic obstructive pulmonary disease, stable without exacerbation. 8. Generalized weakness and deconditioning. The patient has been working with physical therapy, being discharged to rehab. 9. Possible dementia and previous alcoholism. Aware. 10. Acute kidney injury. Resolved. 11. Hypoxemic hypercapnic respiratory failure that required ventilation. Resolved. Secondary to COPD exacerbation. 12. Recurrent aspiration. Aware. 13. Acute on chronic diastolic heart failure. Improved. 14. Hypernatremia. Improved. 15. Hypokalemia. Improved. 16. Tobacco abuse. HOSPITAL COURSE: Briefly, Mr. Castellanos is 66-year-old gentleman who carries a past medical history of COPD, hypertension, atrial fibrillation, alcohol abuse, and tobacco abuse who presented to [facility] ED complaining of difficulty breathing. He was found to have O2 saturations of 86% on room air, heart rate in the 120s to 140s, atrial fibrillation with RVR. Blood pressures were stable, 120s to 150s over 80s to 90s. He was given IV Lasix and Ativan in the ED along with Zosyn and admitted for further evaluation and treatment. He was found have a white count of 9, hemoglobin and hematocrit of 14 and 43, sodium of 136, potassium 3.9, BUN of 12, creatinine 0.6. ProBNP of 3102. ABGs was 7.4 with a pCO2 of 56, a PO2 of 89 and a bicarbonate of 30.9 on 4 L nasal cannula. He was changed over to a Venti mask due to his respirations. Chest x-ray showed bibasilar infiltrates with a new right lower lobe infiltrate that may suggest pneumonia. He was admitted to the ICU with atrial fibrillation with RVR, acute respiratory failure with hypercapnic and hypoxic respiratory failure and a right upper lobe pneumonia. He was given supplemental O2, bronchodilators, started on a Cardizem drip, IV Lasix. The patient had previously been discharged on 11/19/2016. He went home and started drinking vodka and coffee, so he was placed on a banana bag daily as well as Librium taper, Ativan and Bentyl. Blood cultures, urine cultures were also obtained. He remained on a Cardizem drip while at [facility] in the ICU. Cardiology was consulted for persistent atrial fibrillation with RVR. They added a beta jason, continued with IV hydration and recommended continued treatment and supplementation of his magnesium and potassium as well thiamin as well as continuing his home today digoxin. The patient still remained confused. He underwent a head CT. It did not show anything acute. He continued to have episodes of hypercapnia and respiratory failure. He had to be placed on BiPAP. Mr. Castellanos still remained to be confused, still dropping his O2 saturations, still remaining on BiPAP. He was transferred to [facility] for pulmonary consultation with Dr. Alvarez. Recommendations were to continue IV fluids for hyponatremia, continue rate control per Cardiology, continue broad-spectrum antibiotics for his aspiration pneumonia, his progressing pulmonary infiltrates and possible now hospital acquired pneumonia and continue BiPAP. On 12/02/2016 the patient was intubated and sedated by Pulmonology. The patient was started on Clinimix. The patient had been initiated on Clinimix originally with the placement of the NG tube. He was started on tube feeds. Mr. Castellanos was extubated sometime around December 07 or . Still remains somewhat confused, but more awake than previous. He was still having issues with his respiratory status. He had to be placed back on BiPAP. Multiple episodes of aspiration pneumonia. He was transferred to the floor on 12/14. GI was consulted for dysphagia; however, due to the patient being on BiPAP, they suggested to continue symptomatic treatment and supportive care and continue on Clinimix. Mr. Castellanos has had a very slow improvement with his mentation and his cognitive function secondary to his alcohol abuse in the past and underlying dementia. Slowly his mentation was improving. He was becoming more alert. He had been able to do a swallow evaluation as well as repeat swallow evaluations and is now on a mechanical soft diet with thickened liquids and strict aspiration precautions. We have had the patient working with physical therapy. [employer] has been working on placement. He does have a sister who looks after him. However, she herself has a disabled child and she has made it clear that she is now no longer able to care for Mr. Castellanos if he is to be discharged back home, so he will need to go to a long-term facility. His atrial fibrillation is rate controlled. They were able to wean him off his BiPAP to a mask down to a nasal cannula. He alternates between room air and 2 L nasal cannula. Mr. Castellanos throughout his hospital stay also developed a fungemia for which Dr. Zak Garvin was consulted. He received a 1 week treatment of IV Diflucan. He will continue 1 more week of p.o. Diflucan and can follow up with Dr. Zak Garvin on a p.r.n. basis. [employer] has found him placement at [facility] in [place] for which he will be discharged there today. VITAL SIGNS AT TIME OF DISCHARGE: Temperature is 97.6 degrees, heart rate 94, respirations 18, blood pressure 141/77, O2 is 96% on 2 L nasal cannula. DISCHARGE DIET: Mechanical soft with thickened liquids. Strict aspiration precautions and anti- reflux measures. He will need to keep the head elevated at all times, and while the patient is eating, he will need to be sat up in the chair while eating all meals and drinking. DISCHARGE MEDICATIONS: As per Dr. Ferguson and Dr. Zak Garvin. Please see MAR. FOLLOWUP: Mr. Castellanos is being discharged to [facility] in [place]. He can return to the ED for any worsening of symptoms. DISCHARGE TIME: Greater than 45 minutes. Dictated by RUIZ Oates for Michael Villafuerte MD cc: Michael Villafuerte MD
[2016-12-30 14:17] VITALS: BP 132/69
[2016-12-31] MEDS ORDERED: CATAPRES PO SCH (09:00)
== END 2016-12-30 17:20 ==
LOC: P.ED 21:13 → P.ICU 23:30 → SUATTDRO 23:30 → ICU 11-30 20:43 → 3N 12-11 16:13
PROVIDERS: ATTEND Internal Medicine